=== PATIENT | female | born 1950 | race Hispanic/Latino ===

== ENCOUNTER → 2017-12-03 | Day surgery (SDC) | payer MEDICARE, OTHER ==
[2017-12-02 10:34] LABS: BASOPHILS % 0.5 % (0.0-1.0); EOSINOPHILS # (AUTO) 0.2 (0.0-0.4); EOSINOPHILS % 2.3 % (0.0-6.0); HEMATOCRIT 41.1 % (34.2-44.1); HEMOGLOBIN 13.4 g/dL (12.0-16.0); LYMPHOCYTES # (AUTO) 1.6 (1.0-3.2); LYMPHOCYTES % 17.9 % (18.0-39.1); MEAN CORPUSCULAR HEMOGLOBIN 30.4 pg (28-32); MEAN CORPUSCULAR HGB CONC 32.6 g/dL (31-35); MEAN CORPUSCULAR VOLUME 93.2 fL (81-99); MONOCYTES # (AUTO) 0.6 (0.2-0.8); MONOCYTES % 6.2 % (4.4-11.3); NEUTROPHILS # (AUTO) 6.4 (2.1-6.9); NEUTROPHILS % 72.5 % (38.7-80.0); PLATELET COUNT 226 x10e3/uL (140-360); RED BLOOD COUNT 4.41 x10e6/uL (3.6-5.1); RED CELL DISTRIBUTION WIDTH 13.7 % (11.7-14.4)
[~2017-12-03] MED LIST: ASPIR-LOW81 MG PO; FENTANYL CITRATE/PF 100MCG/2 ML INJ ONE; FUROSEMIDE40 MG PO; HYOSCYAMINE SULFATE 0.5 MG/ML AMP ONE; LOSARTAN POTAS100 MG PO; METOPROLOL SUCC50 MG PO; MIDAZOLAM HCL 2 MG/2 ML VIAL ONE; OMEPRAZOLE20 M1 PO; POTASSIUM CHLO20 ME1 PO; PROPOFOL IV EMULSION 10 MG/ML 50 ML VIAL ONE
[2017-12-03 12:46] VITALS: BP 120/67
== END | disposition home or self-care (01) ==
LOC: OR 10:50
PROVIDERS: ATTEND Internal Medicine Gastroenterology
DX: Z12.11 Encounter for screening for malignant neoplasm of colon (principal); D12.0 Benign neoplasm of cecum; D12.3 Benign neoplasm of transverse colon; K29.70 Gastritis, unspecified, without bleeding; K21.9 Gastro-esophageal reflux disease without esophagitis; K57.30 Diverticulosis of large intestine without perforation or abscess without bleeding; K44.9 Diaphragmatic hernia without obstruction or gangrene; K64.8 Other hemorrhoids; J45.909 Unspecified asthma, uncomplicated; I10 Essential (primary) hypertension; R07.9 Chest pain, unspecified; Z91.041 Radiographic dye allergy status; Z01.812 Encounter for preprocedural laboratory examination; Z79.82 Long term (current) use of aspirin; Z68.43 Body mass index [BMI] 50.0-59.9, adult; Z80.0 Family history of malignant neoplasm of digestive organs
CPT/HCPCS: 36415; 43239; 45384; 45385; 85025; 88305; 88312; J1980; J2250

== ENCOUNTER → 2018-06-03 | Day surgery (SDC) | payer MEDICARE, OTHER ==
[2018-05-28 11:18] LABS: BASOPHILS # (AUTO) 0.1 (0.0-0.1); BASOPHILS % 0.6 % (0.0-1.0); EOSINOPHILS # (AUTO) 0.2 (0.0-0.4); HEMOGLOBIN 13.3 g/dL (12.0-16.0); LYMPHOCYTES # (AUTO) 1.4 (1.0-3.2); LYMPHOCYTES % 18.1 % (18.0-39.1); MEAN CORPUSCULAR HEMOGLOBIN 29.8 pg (28-32); MEAN CORPUSCULAR HGB CONC 32.4 g/dL (31-35); MEAN CORPUSCULAR VOLUME 91.7 fL (81-99); MONOCYTES # (AUTO) 0.5 (0.2-0.8); MONOCYTES % 6.9 % (4.4-11.3); NEUTROPHILS # (AUTO) 5.6 (2.1-6.9); PLATELET COUNT 216 x10e3/uL (140-360); RED BLOOD COUNT 4.47 x10e6/uL (3.6-5.1); RED CELL DISTRIBUTION WIDTH 13.1 % (11.7-14.4)
--- NOTE | 2018-05-28 12:05 | Diagnostic Imaging Report ---
EXAM: CHEST 2 VIEWS DATE: 05/28/2018 10:50 AM INDICATION: Preop pelvic surgery COMPARISON: None FINDINGS: Lines and tubes: None Heart size normal. No focal pulmonary opacity, pleural effusion or pneumothorax. Upper abdomen unremarkable. No acute bony abnormality. There are degenerative changes in the thoracic spine. IMPRESSION: No evidence for acute disease. Signed by: Dr. Jeremy Bojorquez M.D. on 05/28/2018 12:02 PM
[~2018-06-03] MED LIST changes: +ALBUTEROL SULFATE HFA 8GM INHALATION AEROSOL INH ONE; +DEXAMETHASONE SOD PHOS INJ 4 MG/ML VIAL ONE; +DEXILANT60 MG; +EPHEDRINE SULFATE INJ 50 MG/10 ML SYR ONE; +GLYCOPYRROLATE INJ 1MG/ 5 ML SYR ONE; +HYDROMORPHONE 2MG/ML 2 MG/ML ML ONE; -HYOSCYAMINE SULFATE 0.5 MG/ML AMP ONE; +KETOROLAC TROMETHAMINE 30 MG/ML VIAL ONE; +LIDOCAINE HCL 2% LOCAL INJ 5 ML SDV VIAL INJ ONE; +NEOSTIGMINE 5 MG/5ML SYR ONE; +ONDANSETRON HCL INJ 2MG/ML 2ML 2 MG/ML VIAL ONE; +PROPOFOL IV EMULSION 10 MG/ML 20 ML VIAL ONE; -PROPOFOL IV EMULSION 10 MG/ML 50 ML VIAL ONE; +ROCURONIUM BROMIDE 10 MG/ML 5ML VIAL ONE; +SEVOFLURANE INHAL SOLN 250 ML PEN BTL ONE; +SILVER NITRATE SWABS ONE; +SUCCINYLCHOLINE 200 MG/10 ML SYR ONE
--- OUTSIDE RECORDS SUMMARY | 2018-06-03 06:47 | XMS REPORT | Summary of Care ---
Author Author [facility] Organization [facility] Address Unknown Phone Unavailable Encounter NICOLETTE Wagner(MECHE) [id number] Date(s): 07/08/15 - 07/11/15 [facility] [address] [place] [address]- [phone] Discharge Disposition: Home Attending Physician: Hardy Pham DO Admitting Physician: Hardy Pham DO Vital Signs 1 2 3 Most recent to oldest [Reference Range]: 152.4 cm (07/09/15 5:10 AM) 152.4 cm (07/08/15 9:10 PM) Height 98.2 DegF (07/11/15 11:00 AM) 98.2 DegF (07/11/15 8:00 AM) 98.9 DegF (07/11/15 12:00 AM) Temperature Oral [96.4-99.1 DegF] 136/104 mmHg (07/11/15 11:00 AM) 124/68 mmHg (07/11/15 8:00 AM) 133/64 mmHg (07/11/15 12:00 AM) Blood Pressure [90-140/60-90 mmHg] 18 BRMIN (07/11/15 11:00 AM) 18 BRMIN (07/11/15 8:00 AM) 17 BRMIN (07/11/15 12:00 AM) Respiratory Rate [14-20 BRMIN] 68 bpm (07/11/15 11:00 AM) 67 bpm (07/11/15 8:00 AM) 70 bpm (07/11/15 12:00 AM) Peripheral Pulse Rate [60-100 bpm] 136.96 kg (07/09/15 5:10 AM) 135 kg (07/08/15 9:10 PM) Weight 58.97 m2 (07/09/15 5:10 AM) 58.13 m2 (07/08/15 9:10 PM) Body Mass Index Problem List Condition Effective Dates Status Health Status Informant HTN Resolved (hypertension)(Confi rmed) Umbilical hernia, Resolved incarcerated(Confirm ed) Allergies, Adverse Reactions, Alerts Substance Reaction Severity Status iodinated radiocontrast Active dyes Medications acetaminophen 650 mg, 2 tab, Route: PO, Drug form: TAB, Q4H, Dosing Weight 135, kg, PRN Pain 1 -3/Temp > 100.4 F, Start date: 07/09/15 2:55:00 CDT, Duration: 30 day, Stop date: 08/08/15 2:54:00 CDT Notes: Do not exceed 4 gm/day. (Same as: Tylenol) Start Date: 07/09/15 Stop Date: 07/11/15 Status: Discontinued acetaminophen-codeine 300 mg-15 mg oral tablet 1 tab, PO, Q4H, PRN Pain, X 3 day, # 18 tab, 0 Refill(s) Start Date: 07/11/15 Stop Date: 07/14/15 Status: Ordered Bentyl 20 mg, 1 tab, Route: PO, Drug form: TAB, QID, Dosing Weight 135, kg, Start date: 07/09/15 9:00:00 CDT, Duration: 30 day, Stop date: 08/07/15 21:00:00 CDT Notes: (Same as: Bentyl) Start Date: 07/09/15 Stop Date: 07/09/15 Status: Discontinued bifidobacterium-lactobacillus oral capsule 1 cap, PO, BID, # 10 cap, 0 Refill(s) Start Date: 07/11/15 Stop Date: 07/16/15 Status: Ordered calcium gluconate 2 gm, 100 mL, Route: IVPB, Drug form: INJ, PRN, Dosing Weight 136.96, kg, PRN Ab normal Lab Result, For NON-ICU Patients Only., Start date: 07/10/15 10:15:00 CDT , Duration: 30 day, Stop date: 08/09/15 10:14:00 CDT Notes: WASTE: F/P - Sink; E - Municipal Trash Bin Start Date: 07/10/15 Stop Date: 07/11/15 Status: Discontinued calcium gluconate + Sodium Chloride 0.9% IV 150 mL 3 gm, 30 mL, Route: IVPB, PRN, Dosing Weight 136.96, kg, PRN Abnormal Lab Result , For NON-ICU Patients Only., Start date: 07/10/15 10:15:00 CDT, Duration: 30 da y, Stop date: 08/09/15 10:14:00 CDT Notes: WASTE: F/P - Sink; E - Municipal Trash Bin Start Date: 07/10/15 Stop Date: 07/11/15 Status: Discontinued Colace 100 mg oral capsule 100 mg, 1 cap, Route: PO, Drug form: CAP, BID, Dosing Weight 135, kg, PRN Consti pation, Start date: 07/09/15 2:55:00 CDT, Duration: 30 day, Stop date: 08/08/15 2:54:00 CDT Notes: (Same as: Colace) (Do Not Crush) Start Date: 07/09/15 Stop Date: 07/11/15 Status: Discontinued DuoNeb inhalation solution 3 ml, Route: NEB, Drug Form: SOLN, Dosing Weight 136.96, kg, ONCE, PRN Respirato ry Protocol, Start date: 07/11/15 12:22:00 CDT, Stop date: 08/10/15 12:21:00 CDT Notes: (Same as: Duoneb) Start Date: 07/11/15 Stop Date: 07/11/15 Status: Completed Flagyl 500 mg, 100 mL, Route: IVPB, Drug form: INJ, ABXQ8H, Dosing Weight 135, kg, Star t date: 07/09/15 3:00:00 CDT, Duration: 30 day, Stop date: 08/07/15 19:00:00 CDT Notes: (Same as: Flagyl) Avoid alcohol. Start Date: 07/09/15 Stop Date: 07/11/15 Status: Discontinued furosemide 40 mg, PO, Daily, 0 Refill(s) Start Date: 07/10/15 Status: Ordered furosemide 40 mg, 1 tab, Route: PO, Drug form: TAB, Daily, Dosing Weight 136.96, kg, Start date: 07/11/15 14:00:00 CDT, Duration: 30 day, Stop date: 08/10/15 9:00:00 CDT Notes: (Same as: Lasix) May cause GI upset. Give with food or milk. Start Date: 07/11/15 Stop Date: 07/11/15 Status: Discontinued Gas-X Ultra Softgels 160 mg, 2 tab, Route: PO, Drug form: CHEWTAB, Q4H, Dosing Weight 135, kg, PRN Ga s, Start date: 07/09/15 2:55:00 CDT, Duration: 30 day, Stop date: 08/08/15 2:54: 00 CDT Notes: (Same as: Mylicon) Start Date: 07/09/15 Stop Date: 07/11/15 Status: Discontinued GI cocktail 30 ml, Route: PO, Drug Form: SUSP, Dosing Weight 135, kg, Q4H, PRN Indigestion, NOW, Start date: 07/09/15 2:55:00 CDT, Duration: 30 day, Stop date: 08/08/15 2:5 4:00 CDT, DYSPEPSIA Notes: G.I. Cocktail=antacid with simethicone 22.5 mL - lidocaine viscous 7.5 mL Start Date: 07/09/15 Stop Date: 07/11/15 Status: Discontinued heparin 7,500 unit, 1.5 mL, Route: SUB-Q, Drug form: INJ, Q8H-06, Dosing Weight 135, kg, Consider for obese patients, Start date: 07/09/15 6:00:00 CDT, Duration: 30 day, Stop date: 08/07/15 22:00:00 CDT Notes: porcine heparin Start Date: 07/09/15 Stop Date: 07/11/15 Status: Discontinued hydrALAZINE 10 mg, 0.5 mL, Route: IVP, Drug form: INJ, Q6H, Dosing Weight 135, kg, PRN [place] wander BP, Start date: 07/09/15 2:55:00 CDT, Duration: 30 day, Stop date: 08/08/15 2:54:00 CDT, SBP>/=160 OR DBP>/=90 Notes: (Same as: Apresoline)Push over 5 minutes Start Date: 07/09/15 Stop Date: 07/11/15 Status: Discontinued Levaquin 500 mg, 100 mL, Route: IVPB, Drug form: SOLN, [id number], Dosing Weight 136.96, kg, Priority: STAT, Start date: 07/10/15 4:16:00 CDT, Duration: 30 day, Stop date: 08/08/15 4:16:00 CDT Notes: (Same as:Levaquin) Start Date: 07/10/15 Stop Date: 07/11/15 Status: Discontinued Levaquin 750 mg oral tablet 750 mg=1 tab, PO, Daily, X 5 day, # 5 tab, 0 Refill(s) Start Date: 07/11/15 Stop Date: 07/16/15 Status: Ordered losartan 100 mg, PO, Daily, 0 Refill(s) Start Date: 07/10/15 Status: Ordered losartan 100 mg, 2 tab, Route: PO, Drug form: TAB, Daily, Dosing Weight 136.96, kg, Start date: 07/11/15 14:00:00 CDT, Duration: 30 day, Stop date: 08/10/15 9:00:00 CDT Notes: (Same as: Cozaar) Start Date: 07/11/15 Stop Date: 07/11/15 Status: Discontinued magnesium oxide 800 mg, 2 tab, Route: PO, Drug form: TAB, PRN, Dosing Weight 136.96, kg, PRN Abn ormal Lab Result, For NON-ICU Patients Only., Start date: 07/10/15 10:15:00 CDT, Duration: 30 day, Stop date: 08/09/15 10:14:00 CDT Notes: (Same as: Mag-Ox 400)Magnesium oxide [id number] elemental magnesiumDose= ____mg magnesium oxide (___mg elemental magnesium) Start Date: 07/10/15 Stop Date: 07/11/15 Status: Discontinued magnesium sulfate 1 gm, 100 mL, Route: IVPB, Drug form: INJ, PRN, Dosing Weight 136.96, kg, PRN Ab normal Lab Result, For NON-ICU Patients Only., Start date: 07/10/15 10:15:00 CDT , Duration: 30 day, Stop date: 08/09/15 10:14:00 CDT Notes: WASTE: F/P - Sink; E - Municipal Trash Bin Start Date: 07/10/15 Stop Date: 07/11/15 Status: Discontinued magnesium sulfate 2 gm, 50 mL, Route: IVPB, Drug form: INJ, PRN, Dosing Weight 136.96, kg, PRN Abn ormal Lab Result, For NON-ICU Patients Only., Start date: 07/10/15 10:15:00 CDT, Duration: 30 day, Stop date: 08/09/15 10:14:00 CDT Notes: WASTE: F/P - Sink; E - Municipal Trash Bin Start Date: 07/10/15 Stop Date: 07/11/15 Status: Discontinued metoprolol extended release 50 mg, PO, Daily, 0 Refill(s) Start Date: 07/10/15 Status: Ordered metoprolol extended release 50 mg, 1 tab, Route: PO, Drug form: ERTAB, Daily, Start date: 07/11/15 16:00:00 CDT, Duration: 30 day, Stop date: 08/10/15 9:00:00 CDT Notes: (Same as: Toprol XL) May split tab, but do not crush. Start Date: 07/11/15 Stop Date: 07/11/15 Status: Canceled morphine Sulfate 2 mg, 1 mL, Route: IVP, Drug form: INJ, Q4H, Dosing Weight 135, kg, PRN Pain Sco re 4-6, Start date: 07/09/15 2:55:00 CDT, Duration: 3 day, Stop date: 07/12/15 2 :54:00 CDT Notes: (Same as:MORPhine Sulfate) Start Date: 07/09/15 Stop Date: 07/11/15 Status: Discontinued Omnipaque 240mg/ml ORAL Solution 50 mL, Route: PO, Drug Form: SOLN, Dosing Weight 135, kg, ONCE, Start date: 06/23 08/07 21:50:00 CDT, Stop date: 07/08/15 21:50:00 CDT Notes: (Same as:Omnipaque 240)12,000mg/50mlWASTE: F/P - Black; E - Municipal Tra sh Bin Start Date: 07/08/15 Stop Date: 07/09/15 Status: Completed ondansetron 4 mg, 2 mL, Route: IVP, Drug form: INJ, Q4H, Dosing Weight 135, kg, PRN Nausea & Vomiting, Start date: 07/09/15 2:55:00 CDT, Duration: 30 day, Stop date: 2:54:00 CDT Notes: (Same as: Zofran) MEDICATION WASTE Product Size: 4 mgProduct Was wander: ___ mg Start Date: 07/09/15 Stop Date: 07/11/15 Status: Discontinued potassium chloride 10 mEq, 100 mL, Route: IVPB, Drug form: INJ, Q1H, Dosing Weight 136.96, kg, Tota l Dose=40 mEq; Peripheral Line, Start date: 07/10/15 8:00:00 CDT, Duration: 4 do ses or times, Stop date: 07/10/15 11:00:00 CDT Notes: Infuse at a rate of 10 mEq/hr.(Same as: KCL) Start Date: 07/10/15 Stop Date: 07/10/15 Status: Completed potassium chloride 10 mEq, 100 mL, Route: IVPB, Drug form: INJ, PRN, Dosing Weight 136.96, kg, PRN Abnormal Lab Result, For NON-ICU Patients Only, Start date: 07/10/15 10:15:00 CD T, Duration: 30 day, Stop date: 08/09/15 10:14:00 CDT Notes: Infuse at a rate of 10 mEq/hr.(Same as: KCL) Start Date: 07/10/15 Stop Date: 07/11/15 Status: Discontinued potassium chloride 20 mEq, 15 mL, Route: NJ, Drug form: LIQ, PRN, Dosing Weight 136.96, kg, PRN Abn ormal Lab Result, For NON-ICU Patients Only, Start date: 07/10/15 10:15:00 CDT, Duration: 30 day, Stop date: 08/09/15 10:14:00 CDT Notes: (Same as: Potassium Chloride) Start Date: 07/10/15 Stop Date: 07/11/15 Status: Discontinued potassium chloride 20 mEq, 1 tab, Route: PO, Drug form: ERTAB, PRN, Dosing Weight 136.96, kg, PRN A bnormal Lab Result, For NON-ICU Patients Only, Start date: 07/10/15 10:15:00 CDT , Duration: 30 day, Stop date: 08/09/15 10:14:00 CDT Notes: (Same as: K-Dur 20)"Do Not Crush" With food and full glass of water Start Date: 07/10/15 Stop Date: 07/11/15 Status: Discontinued potassium phosphate + Sodium Chloride 0.9% IV 250 mL 30 mmol, 10 mL, Route: IVPB, ONCE, Dosing Weight 136.96, kg, Start date: 6 7:41:00 CDT, Stop date: 07/10/15 7:41:00 CDT Notes: (Same as: K Phosphate.) 1 mMol phoshate has 1.47 mEq potassium Infuse o qi 4 hours Start Date: 07/10/15 Stop Date: 07/10/15 Status: Completed potassium phosphate + Sodium Chloride 0.9% IV 250 mL 30 mmol, 10 mL, Route: IVPB, PRN, Dosing Weight 136.96, kg, PRN Abnormal Lab Res ult, For NON-ICU Patients Only., Start date: 07/10/15 10:15:00 CDT, Duration: 30 day, Stop date: 08/09/15 10:14:00 CDT Notes: (Same as: K Phosphate.) 1 mMol phoshate has 1.47 mEq potassium Infuse o qi 4 hours Start Date: 07/10/15 Stop Date: 07/11/15 Status: Discontinued potassium phosphate + Sodium Chloride 0.9% IV 250 mL 15 mmol, 5 mL, Route: IVPB, PRN, Dosing Weight 136.96, kg, PRN Abnormal Lab Resu lt, For NON-ICU Patients Only., Start date: 07/10/15 10:15:00 CDT, Duration: 30 day, Stop date: 08/09/15 10:14:00 CDT Notes: (Same as: K Phosphate.) 1 mMol phoshate has 1.47 mEq potassium Infuse o qi 4 hours Start Date: 07/10/15 Stop Date: 07/11/15 Status: Discontinued potassium phosphate-sodium phosphate 250 mg-278 mg-164 mg oral powder 2 pkt, Route: PO, Drug Form: PDR/REC, Dosing Weight 136.96, kg, PRN, PRN Abnorma l Lab Result, For NON-ICU Patients Only, Start date: 07/10/15 10:15:00 CDT, Dura tion: 30 day, Stop date: 08/09/15 10:14:00 CDT Notes: (Same as: Neutra-Phos) Each 1.25 gm pkt has 250mg phosphorous. Mix w/2.5 oz water and stir. Start Date: 07/10/15 Stop Date: 07/11/15 Status: Discontinued Protonix 40 mg, Route: IVP, Drug form: INJ, BID, Dosing Weight 135, kg, Patient is NPO, P riority: STAT, Start date: 07/09/15 2:55:00 CDT, Duration: 30 day, Stop date: 17:00:00 CDT Notes: For IV push reconstitute with 10 ml 0.9% sodium chloride and push over 2 minutes. (Same as: Protonix) Start Date: 07/09/15 Stop Date: 07/11/15 Status: Discontinued Saline Flush 0.9% 10 mL, Route: IVP, Drug Form: INJ, Dosing Weight 135, kg, PRN, PRN Line Flush, S tart date: 07/08/15 21:50:00 CDT, Duration: 30 day, Stop date: 08/07/15 21:49:00 CDT Notes: (Same as: BD Posiflush) Start Date: 07/08/15 Stop Date: 07/11/15 Status: Discontinued Sodium Chloride 0.9% IV 1,000 mL 1,000 mL, Rate: 125 ml/hr, Infuse over: 8 hr, Route: IV, Dosing Weight 135 kg, T otal Volume: 1,000, Start date: 07/09/15 2:55:00 CDT, Duration: 30 day, Stop rocio e: 08/08/15 2:54:00 CDT Start Date: 07/09/15 Stop Date: 07/11/15 Status: Discontinued sodium phosphate + Sodium Chloride 0.9% IV 250 mL 30 mmol, 10 mL, Route: IVPB, PRN, Dosing Weight 136.96, kg, PRN Abnormal Lab Res ult, For NON-ICU Patients Only., Start date: 07/10/15 10:15:00 CDT, Duration: 30 day, Stop date: 08/09/15 10:14:00 CDT Start Date: 07/10/15 Stop Date: 07/11/15 Status: Discontinued sodium phosphate + Sodium Chloride 0.9% IV 250 mL 15 mmol, 5 mL, Route: IVPB, PRN, Dosing Weight 136.96, kg, PRN Abnormal Lab Resu lt, For NON-ICU Patients Only., Start date: 07/10/15 10:15:00 CDT, Duration: 30 day, Stop date: 08/09/15 10:14:00 CDT Start Date: 07/10/15 Stop Date: 07/11/15 Status: Discontinued tramadol 50 mg oral tablet 50 mg, 1 tab, Route: PO, Drug form: TAB, Q6H, Dosing Weight 135, kg, PRN Pain Sc ore 4-6, Start date: 07/09/15 2:55:00 CDT, Duration: 30 day, Stop date: 08/08/15 2:54:00 CDT Notes: Not to exceed 400mg/day. (Same As: Ultram) Start Date: 07/09/15 Stop Date: 07/11/15 Status: Discontinued Zosyn 3.375 gm, Route: IVPB, Drug form: PDR/INJ, ONCE, Dosing Weight 135, kg, Priority : STAT, Start date: 07/09/15 2:41:00 CDT, Stop date: 07/09/15 2:41:00 CDT Start Date: 07/09/15 Stop Date: 07/09/15 Status: Completed Zosyn 4.5 gm, Route: IV, Drug form: INJ, ABXQ6H, Dosing Weight 136.96, kg, Start date: 07/09/15 16:00:00 CDT, Duration: 30 day, Stop date: 08/08/15 10:00:00 CDT, Subs titute Allowed No, > 40 kg; Pediatric Dosing Start Date: 07/09/15 Stop Date: 07/09/15 Status: Deleted Zosyn + Sodium Chloride 0.9% IV 100 mL 3.375 gm, Route: IVPB, ABXQ8H, Start date: 07/09/15 20:00:00 CDT, Duration: 30 d ay, Stop date: 08/08/15 9:00:00 CDT Notes: (Same as: Zosyn)Dosing based on Piperacillin component MEDICATION [place] DEEPAK Product Size: 3375 mgProduct Wasted: ___ mg Start Date: 07/09/15 Stop Date: 07/11/15 Status: Discontinued Zosyn + Sodium Chloride 0.9% IV 100 mL 3.375 gm, Route: IVPB, ABXQ8H, Dosing Weight 135, kg, Start date: 07/09/15 5:00: 00 CDT, Duration: 30 day, Stop date: 08/07/15 21:00:00 CDT Notes: (Same as: Zosyn)Dosing based on Piperacillin component MEDICATION [place] DEEPAK Product Size: 3375 mgProduct Wasted: ___ mg Start Date: 07/09/15 Stop Date: 07/09/15 Status: Discontinued Results ELECTROLYTES 1 2 3 Most recent to oldest [Reference Range]: 142 mEq/L (07/11/15 6:11 AM) 139 mEq/L (07/10/15 3:47 AM) 139 mEq/L (07/09/15 5:21 AM) Sodium Lvl [135-145 mEq/L] 3.5 mEq/L (07/11/15 6:11 AM) 2.8 mEq/L 1 *CRIT* (07/10/15 3:47 AM) 3.8 mEq/L (07/09/15 5:21 AM) Potassium Lvl [3.5-5.1 mEq/L] 110 mEq/L *HI* (07/11/15 6:11 AM) 103 mEq/L (07/10/15 3:47 AM) 102 mEq/L (07/09/15 5:21 AM) Chloride Lvl [95-109 mEq/L] 25 mEq/L (07/11/15 6:11 AM) 28 mEq/L (07/10/15 3:47 AM) 25 mEq/L (07/09/15 5:21 AM) CO2 [24-32 mEq/L] 10.5 mEq/L (07/11/15 6:11 AM) 10.8 mEq/L (07/10/15 3:47 AM) 15.8 mEq/L (07/09/15 5:21 AM) AGAP [10.0-20.0 mEq/L] 1Result Comment: Critical Result(s) called to ECTOR RAND at 07/10/2015 06:57 by ANASTACIO. Read back OK. CHEM PANEL 1 2 3 Most recent to oldest [Reference Range]: 0.72 mg/dL (07/11/15 6:11 AM) 0.88 mg/dL (07/10/15 3:47 AM) 1.00 mg/dL (07/09/15 5:21 AM) Creatinine Lvl [0.50-1.40 mg/dL] 88 mL/min/1.73m2 1 *NA* (07/11/15 6:11 AM) 69 mL/min/1.73m2 2 *NA* (07/10/15 3:47 AM) 59 mL/min/1.73m2 3 *NA* (07/09/15 5:21 AM) eGFR 9 mg/dL (07/11/15 6:11 AM) 12 mg/dL (07/10/15 3:47 AM) 18 mg/dL (07/09/15 5:21 AM) BUN [7-22 mg/dL] 18 (07/09/15 5:21 AM) 17 (07/08/15 11:29 PM) B/C Ratio [6-25] 105 mg/dL *HI* (07/11/15 6:11 AM) 121 mg/dL *HI* (07/10/15 3:47 AM) 116 mg/dL *HI* (07/09/15 5:21 AM) Glucose Lvl [70-99 mg/dL] 7.8 g/dL (07/09/15 5:21 AM) 8.0 g/dL (07/08/15 11:29 PM) Total Protein [6.4-8.4 g/dL] 3.0 g/dL *LOW* (07/09/15 5:21 AM) 3.3 g/dL *LOW* (07/08/15 11:29 PM) Albumin Lvl [3.5-5.0 g/dL] 4.8 g/dL *HI* (07/09/15 5:21 AM) 4.7 g/dL *HI* (07/08/15 11:29 PM) Globulin [2.0-4.0 g/dL] 0.6 *LOW* (07/09/15 5:21 AM) 0.7 (07/08/15 11:29 PM) A/G Ratio [0.7-1.6] 7.9 mg/dL *LOW* (07/11/15 6:11 AM) 8.1 mg/dL *LOW* (07/10/15 3:47 AM) 8.3 mg/dL *LOW* (07/09/15 5:21 AM) Calcium Lvl [8.5-10.5 mg/dL] 1.7 mg/dL *LOW* (07/11/15 6:11 AM) 2.5 mg/dL (07/10/15 3:47 AM) 2.7 mg/dL (07/09/15 5:21 AM) Phosphorus [2.5-4.5 mg/dL] 1.9 mg/dL (07/11/15 6:11 AM) 2.0 mg/dL (07/10/15 3:47 AM) 1.9 mg/dL (07/09/15 5:21 AM) Magnesium Lvl [1.8-2.4 mg/dL] 21 unit/L (07/09/15 5:21 AM) 23 unit/L (07/08/15 11:29 PM) ALT [0-65 unit/L] 17 unit/L (07/09/15 5:21 AM) 13 unit/L (07/08/15 11:29 PM) AST [0-37 unit/L] 101 unit/L (07/09/15 5:21 AM) 112 unit/L (07/08/15 11:29 PM) Alk Phos [39-136 unit/L] 0.9 mg/dL (07/09/15 5:21 AM) 0.9 mg/dL (07/08/15 11:29 PM) Bili Total [0.2-1.3 mg/dL] 66 unit/L *LOW* (07/08/15 11:29 PM) Lipase Lvl [73-393 unit/L] 27.52 ng/mL 4 *CRIT* (07/10/15 7:01 AM) Procalcitonin Lvl [0.00-0.10 ng/mL] 1Result Comment: The eGFR is calculated using the CKD-EPI formula. In most young, healthy individuals the eGFR will be >90 mL/min/1.73m2. The eGFR declines with age. An eGFR of 60-89 may be normal in some populations, particularly the elderly, for whom the CKD-EPI formula has not been extensively validated. Use of the eGFR is not recommended in the following populations: Individuals with unstable creatinine concentrations, including patients and those with serious co-morbid conditions. Patients with extremes in muscle mass or diet. The data above are obtained from the National Kid[employer] Disease Education Program ( NK[employer]) which additionally recommends that when the eGFR is used in patients with extremes of body mass index for purposes of drug dosing, the eGFR should be mul tiplied by the estimated BMI. 2Result Comment: The eGFR is calculated using the CKD-EPI formula. In most young, healthy individuals the eGFR will be >90 mL/min/1.73m2. The eGFR declines with age. An eGFR of 60-89 may be normal in some populations, particularly the elderly, for whom the CKD-EPI formula has not been extensively validated. Use of the eGFR is not recommended in the following populations: Individuals with unstable creatinine concentrations, including patients and those with serious co-morbid conditions. Patients with extremes in muscle mass or diet. The data above are obtained from the National Kid[employer] Disease Education Program ( NKDEP) which additionally recommends that when the eGFR is used in patients with extremes of body mass index for purposes of drug dosing, the eGFR should be mul tiplied by the estimated BMI. 3Result Comment: The eGFR is calculated using the CKD-EPI formula. In most young, healthy individuals the eGFR will be >90 mL/min/1.73m2. The eGFR declines with age. An eGFR of 60-89 may be normal in some populations, particularly the elderly, for whom the CKD-EPI formula has not been extensively validated. Use of the eGFR is not recommended in the following populations: Individuals with unstable creatinine concentrations, including patients and those with serious co-morbid conditions. Patients with extremes in muscle mass or diet. The data above are obtained from the National Kidney Disease Education Program ( NKDEP) which additionally recommends that when the eGFR is used in patients with extremes of body mass index for purposes of drug dosing, the eGFR should be mul tiplied by the estimated BMI. 4Result Comment: Critical Result(s) called to OLEGARIO OJEDA at 07/10/2015 09:30 by ANASTACIO. Read back OK. CARDIAC ENZYMES 1 2 3 Most recent to oldest [Reference Range]: 47 unit/L (07/08/15 11:29 PM) Total CK [12-191 unit/L] <0.5 ng/mL (07/08/15 11:29 PM) CK MB [0.5-3.6 ng/mL] <1.1 (07/08/15 11:29 PM) CK MB Index [0.0-2.5] <0.02 ng/mL (07/08/15 11:29 PM) Troponin-I [0.00-0.40 ng/mL] ENDOCRINOLOGY 1 2 3 Most recent to oldest [Reference Range]: Negative *NA* (07/08/15 11:29 PM) S Preg [Negative] URINE AND STOOL 1 2 3 Most recent to oldest [Reference Range]: Slight Cloudy (07/09/15 2:12 AM) UA Turbidity [Clear] Yellow *NA* (07/09/15 2:12 AM) UA Color [Yellow] 5.5 (07/09/15 2:12 AM) UA pH [5.0-8.0] 1.010 (07/09/15 2:12 AM) UA Spec Grav [<=1.030] Negative (07/09/15 2:12 AM) UA Glucose [Negative] Small *ABN* (07/09/15 2:12 AM) UA Blood [Negative] Negative *NA* (07/09/15 2:12 AM) UA Ketones [Negative] Negative (07/09/15 2:12 AM) UA Protein [Negative] 1.0 EU/dL (07/09/15 2:12 AM) UA Urobilinogen [0.1-1.0 EU/dL] Negative *NA* (07/09/15 2:12 AM) UA Bili [Negative] Small *ABN* (07/09/15 2:12 AM) UA Leuk Est [Negative] Positive *ABN* (07/09/15 2:12 AM) UA Nitrite [Negative] 6-10 /HPF *ABN* (07/09/15 2:12 AM) UA WBC [None Seen /HPF] 3-5 /HPF *ABN* (07/09/15 2:12 AM) UA RBC [0-2 /HPF] Moderate /HPF (07/09/15 2:12 AM) UA Bacteria [None Seen /HPF] Few /LPF (07/09/15 2:12 AM) UA Sq Epi [Few /LPF] Few /LPF (07/09/15 2:12 AM) UA Mucus [None Seen /LPF] Performed (07/09/15 2:12 AM) Micro? HEMATOLOGY 1 2 3 Most recent to oldest [Reference Range]: 11.1 K/CMM *HI* (07/11/15 6:11 AM) 14.9 K/CMM *HI* (07/10/15 3:47 AM) 22.0 K/CMM *HI* (07/09/15 5:21 AM) WBC [3.7-10.4 K/CMM] 3.68 M/CMM *LOW* (07/11/15 6:11 AM) 3.84 M/CMM *LOW* (07/10/15 3:47 AM) 4.09 M/CMM *LOW* (07/09/15 5:21 AM) RBC [4.20-5.40 M/CMM] 10.6 g/dL *LOW* (07/11/15 6:11 AM) 11.2 g/dL *LOW* (07/10/15 3:47 AM) 12.1 g/dL (07/09/15 5:21 AM) Hgb [12.0-16.0 g/dL] 32.9 % *LOW* (07/11/15 6:11 AM) 34.2 % *LOW* (07/10/15 3:47 AM) 36.1 % (07/09/15 5:21 AM) Hct [36.0-48.0 %] 89.2 fL (07/11/15 6:11 AM) 88.9 fL (07/10/15 3:47 AM) 88.3 fL (07/09/15 5:21 AM) MCV [80.0-98.0 fL] 28.9 pg (07/11/15 6:11 AM) 29.2 pg (07/10/15 3:47 AM) 29.5 pg (07/09/15 5:21 AM) MCH [27.0-31.0 pg] 32.4 g/dL (07/11/15 6:11 AM) 32.8 g/dL (07/10/15 3:47 AM) 33.4 g/dL (07/09/15 5:21 AM) MCHC [32.0-36.0 g/dL] 13.7 % (07/11/15 6:11 AM) 13.8 % (07/10/15 3:47 AM) 14.2 % (07/09/15 5:21 AM) RDW [11.5-14.5 %] 147 K/CMM (07/11/15 6:11 AM) 154 K/CMM (07/10/15 3:47 AM) 176 K/CMM (07/09/15 5:21 AM) Platelet [133-450 K/CMM] 10.9 fL *HI* (07/11/15 6:11 AM) 11.3 fL *HI* (07/10/15 3:47 AM) 10.8 fL *HI* (07/09/15 5:21 AM) MPV [7.4-10.4 fL] 75.6 % *HI* (07/11/15 6:11 AM) 86.0 % *HI* (07/10/15 3:47 AM) 92.7 % *HI* (07/09/15 5:21 AM) Segs [45.0-75.0 %] 10.8 % *LOW* (07/11/15 6:11 AM) 4.2 % *LOW* (07/10/15 3:47 AM) 3.0 % *LOW* (07/09/15 5:21 AM) Lymphocytes [20.0-40.0 %] 12.0 % (07/11/15 6:11 AM) 9.4 % (07/10/15 3:47 AM) 3.6 % (07/09/15 5:21 AM) Monocytes [2.0-12.0 %] 1.1 % (07/11/15 6:11 AM) 0.1 % (07/10/15 3:47 AM) 0.3 % (07/09/15 5:21 AM) Eosinophils [0.0-4.0 %] 0.5 % (07/11/15 6:11 AM) 0.3 % (07/10/15 3:47 AM) 0.4 % (07/09/15 5:21 AM) Basophils [0.0-1.0 %] 8.4 K/CMM *HI* (07/11/15 6:11 AM) 12.8 K/CMM *HI* (07/10/15 3:47 AM) 20.4 K/CMM *HI* (07/09/15 5:21 AM) Segs-Bands # [1.5-8.1 K/CMM] 1.2 K/CMM (07/11/15 6:11 AM) 0.6 K/CMM *LOW* (07/10/15 3:47 AM) 0.7 K/CMM *LOW* (07/09/15 5:21 AM) Lymphocytes # [1.0-5.5 K/CMM] 1.3 K/CMM *HI* (07/11/15 6:11 AM) 1.4 K/CMM *HI* (07/10/15 3:47 AM) 0.8 K/CMM (07/09/15 5:21 AM) Monocytes # [0.0-0.8 K/CMM] 0.1 K/CMM (07/11/15 6:11 AM) 0.1 K/CMM (07/09/15 5:21 AM) Eosinophils # [0.0-0.5 K/CMM] 0.1 K/CMM (07/11/15 6:11 AM) 0.1 K/CMM (07/09/15 5:21 AM) 0.2 K/CMM (07/08/15 11:29 PM) Basophils # [0.0-0.2 K/CMM] Immunizations No data available for this section Procedures Procedure Date Related Diagnosis Body Site Abdominal hysterectomy Social History Social History Type Response Alcohol Never Smoking Status Never smoker; Exposure to Tobacco Smoke None; Cigarette Smoking Last 365 Days No; Reg Smoking Cessation Counseling No Assessment and Plan Extracted from: Title: Discharge Summary * Author: Garrick Dillard MD Date: 07/11/15 Discharge Plan Pt was seen and followed by surgery. Kept on IV antibiotics and had several imaging tests performed. HIDA scan for Gallbladder was normal compared to previous tests that showed possible Acute Cholecystitis. Other findings were concerning for Pyelonephritis. Leukocytosis improved during hospitalization while on antibiotics. Pt is stabel today for discharge and is kayla home on Levaquin for 5 more days to complete a 7 days course. In addition she is to take the Probiotic prescribed for 5 days twice per day. Pt needs to follow up with Urology. Extracted from: Title: Progress Note * Author: Garrick Dillard MD Date: 07/10/15 Impression and Plan Pt is a 65 yo female with a PMH of HTN, GERD, and Asthma presents to the ED with complaints of abdominal pain. Pt states that she was going about her regular day at home cleaning up around the house. When she leaned over quickly suddenly she felt a sharp pain in [place] right side of her abdomen. Pain was excrutiating and would not cease. Upon investigation in the ED she wa found to have an acute cholecustitis on imaging. Abdominal Pain 2/2 Acute Cholecystitis -imaging shows an enlarged GB with sludge and stone present -pain seemed to resolve after pain medication given -no nausea or vomting -denied fevers or chills throughout the day PLAN: -Pain mgmt -will obtain HIDA scan for better assessment; results were normal -c/w IV abx and will d/c tomorrow on PO abx -IV Fluids -Surgery consult appreciated HTN -chronic PLAN: -c/w home meds GERD -established PLAN: -c/w PPI DVT/GI PPx Heparin and Protonix Dispo: from home; d/c tomorrow if continues toimprove and WBCs decrease FULL CODE Extracted from: Title: General Admission H&P * Author: Garrick Dillard MD Date: 07/09/15 Impression and Plan Pt is a 65 yo female with a PMH of HTN, GERD, and Asthma presents to the ED with complaints of abdominal pain. Pt states that she was going about her regular day at home cleaning up around the house. When she leaned over quickly suddenly she felt a sharp pain in [place] right side of her abdomen. Pain was excrutiating and would not cease. Upon investigation in the ED she wa found to have an acute cholecustitis on imaging. Abdominal Pain 2/2 Acute Cholecystitis -imaging shows an enlarged GB with sludge and stone present -pain seemed to resolve after pain medication given -no nausea or vomting -denied fevers or chills throughout the day PLAN: -Pain mgmt -will obtain HIDA scan for better assessment -c/w IV abx -IV Fluids -Surgery consult appreciated HTN -chronic PLAN: -c/w home meds GERD -established PLAN: -c/w PPI DVT/GI PPx Heparin and Protonix Dispo: from home; LOS dependnet on surgical intervention vs conservative management FULL CODE
--- OUTSIDE RECORDS SUMMARY | 2018-06-03 06:47 | XMS REPORT | Summary of Care ---
Author Author Organization Address Unknown Phone Unavailable Encounter NICOLETTE Wagner(MECHE) [id number] Date(s): 02/17/17 - 02/17/17 [id number], [place], [place] [address]- [phone] Discharge Disposition: Other Healthcare Facility Attending Physician: Lasha Lieberman MD Vital Signs 1 2 3 Most recent to oldest [Reference Range]: 152.4 cm (02/17/17 9:42 AM) Height 150/68 mmHg *HI* (02/17/17 1:09 PM) 139/69 mmHg (02/17/17 12:09 PM) 157/65 mmHg *HI* (02/17/17 11:09 AM) Blood Pressure [90-140/60-90 mmHg] 20 BRMIN (02/17/17 1:09 PM) 20 BRMIN (02/17/17 12:09 PM) 20 BRMIN (02/17/17 11:09 AM) Respiratory Rate [14-20 BRMIN] 52 bpm *LOW* (02/17/17 1:09 PM) 50 bpm *LOW* (02/17/17 12:09 PM) 52 bpm *LOW* (02/17/17 11:09 AM) Peripheral Pulse Rate [60-100 bpm] 133.636 kg (02/17/17 9:42 AM) Weight 57.54 m2 (02/17/17 9:42 AM) Body Mass Index Problem List Condition Effective Dates Status Health Status Informant Asthma(Confirmed) Resolved Gastroenteritis(Conf Resolved irmed) GERD Resolved (gastroesophageal reflux disease)(Confirmed) HTN Resolved (hypertension)(Confi rmed) Umbilical hernia, Resolved incarcerated(Confirm ed) Allergies, Adverse Reactions, Alerts Substance Reaction Severity Status iodinated radiocontrast Active dyes Medications aspirin 81 mg tablet, chewable 324 mg, Route: PO, Drug form: CHEWTAB, ONCE, Dosing Weight 133.636, kg, Priority : STAT, Start date: 02/17/17 10:26:00 SPEECH LANGUAGE PATHOLOGIST ASSISTANT, Stop date: 02/17/17 10:26:00 SPEECH LANGUAGE PATHOLOGIST ASSISTANT Start Date: 02/17/17 Stop Date: 02/17/17 Status: Completed ibuprofen 800 mg, PO, Q8H, PRN Pain Score 7-10, 0 Refill(s) Start Date: 02/17/17 Status: Ordered methocarbamol 750 mg oral tablet 1,500 mg=2 tab, PO, TID, PRN Pain Score 4-6, 0 Refill(s) Start Date: 02/17/17 Status: Ordered nitroglycerin 0.4 mg sublingual tablet 0.4 mg, Route: SL, ONCE, Dosing Weight 133.636, kg, Priority: STAT, Start date: 02/17/17 10:26:00 SPEECH LANGUAGE PATHOLOGIST ASSISTANT, Stop date: 02/17/17 10:26:00 SPEECH LANGUAGE PATHOLOGIST ASSISTANT Start Date: 02/17/17 Stop Date: 02/17/17 Status: Completed omeprazole 20 mg, PO, Daily, 0 Refill(s) Start Date: 02/17/17 Status: Ordered potassium chloride 20 mEq oral tablet, extended release 20 mEq=1 tab, PO, Daily, # 30 tab, 3 Refill(s) Start Date: 02/17/17 Status: Ordered Symbicort 160/4.5 inhalation aerosol with adapter 2 puff, INHALER, BID, PRN Shortness of breath, # 1 ea, 3 Refill(s) Start Date: 02/17/17 Status: Ordered Results ELECTROLYTES Most recent to 1 oldest [Reference Range]: Sodium Lvl [135-145 139 mEq/L mEq/L] (02/17/17 10:11 AM) Potassium Lvl 3.7 mEq/L [3.5-5.1 mEq/L] (02/17/17 10:11 AM) Chloride Lvl [95-109 100 mEq/L mEq/L] (02/17/17 10:11 AM) CO2 [24-32 mEq/L] 33 mEq/L *HI* (02/17/17 10:11 AM) AGAP [10.0-20.0 9.7 mEq/L mEq/L] *LOW* (02/17/17 10:11 AM) CHEM PANEL Most recent to 1 oldest [Reference Range]: Creatinine Lvl 0.85 mg/dL [0.50-1.40 mg/dL] (02/17/17 10:11 AM) eGFR 71 mL/min/1.73m2 1 *NA* (02/17/17 10:11 AM) BUN [7-22 mg/dL] 23 mg/dL *HI* (02/17/17 10:11 AM) Glucose Lvl [70-99 99 mg/dL mg/dL] (02/17/17 10:11 AM) Calcium Lvl 9.1 mg/dL [8.5-10.5 mg/dL] (02/17/17 10:11 AM) 1Result Comment: The eGFR is calculated using [...] be mul tiplied by the estimated BMI. CARDIAC ENZYMES Most recent to 1 oldest [Reference Range]: Total CK [12-191 52 unit/L unit/L] (02/17/17 10:11 AM) Troponin-I <0.02 ng/mL [0.00-0.40 ng/mL] (02/17/17 10:11 AM) proBNP [0-125 pg/mL] 251 pg/mL *HI* (02/17/17 10:11 AM) HEMATOLOGY Most recent to 1 oldest [Reference Range]: WBC [3.7-10.4 K/CMM] 7.2 K/CMM (02/17/17 10:11 AM) RBC [4.20-5.40 4.66 M/CMM M/CMM] (02/17/17 10:11 AM) Hgb [12.0-16.0 g/dL] 13.6 g/dL (02/17/17 10:11 AM) Hct [36.0-48.0 %] 41.7 % (02/17/17 10:11 AM) MCV [80.0-98.0 fL] 89.4 fL (02/17/17 10:11 AM) MCH [27.0-31.0 pg] 29.3 pg (02/17/17 10:11 AM) MCHC [32.0-36.0 32.7 g/dL g/dL] (02/17/17 10:11 AM) RDW [11.5-14.5 %] 13.2 % (02/17/17 10:11 AM) Platelet [133-450 200 K/CMM K/CMM] (02/17/17 10:11 AM) MPV [7.4-10.4 fL] 12.1 fL *HI* (02/17/17 10:11 AM) Segs [45.0-75.0 %] 74.0 % (02/17/17 10:11 AM) Lymphocytes 18.2 % [20.0-40.0 %] *LOW* (02/17/17 10:11 AM) Monocytes [2.0-12.0 5.4 % %] (02/17/17 10:11 AM) Eosinophils [0.0-4.0 2.1 % %] (02/17/17 10:11 AM) Basophils [0.0-1.0 0.3 % %] (02/17/17 10:11 AM) Segs-Bands # 5.3 K/CMM [1.5-8.1 K/CMM] (02/17/17 10:11 AM) Lymphocytes # 1.3 K/CMM [1.0-5.5 K/CMM] (02/17/17 10:11 AM) Monocytes # [0.0-0.8 0.4 K/CMM K/CMM] (02/17/17 10:11 AM) Eosinophils # 0.2 K/CMM [0.0-0.5 K/CMM] (02/17/17 10:11 AM) Immunizations No data available for this section Procedures Procedure Date Related Diagnosis Body Site Abdominal hysterectomy Social History Social History Type Response Substance Abuse Use: None. Alcohol Never Smoking Status Never smoker; Exposure to Tobacco Smoke None; Cigarette Smoking Last 365 Days No; Reg Smoking Cessation Counseling No Assessment and Plan No data available for this section
--- OUTSIDE RECORDS SUMMARY | 2018-06-03 06:47 | XMS REPORT | Summary of Care ---
Author Author [facility] Organization [facility] Address Unknown Phone Unavailable Encounter NICOLETTE Wagner(MECHE) [id number] Date(s): 02/17/17 - 02/18/17 [facility] [address] [employer] provided by [facility] [place] [address]- Discharge Disposition: Home or Self Care Attending Physician: Tanisha Garcia MD Admitting Physician: Tanisha Garcia MD Referring Physician: Lasha Lieberman MD Vital Signs 1 2 3 Most recent to oldest [Reference Range]: 152.4 cm (02/17/17 2:38 PM) Height 96.5 DegF (02/18/17 7:25 AM) 97.7 DegF (02/18/17 2:33 AM) 97.8 DegF (02/17/17 10:55 PM) Temperature Oral [96.4-99.1 DegF] 128/63 mmHg (02/18/17 7:25 AM) 121/56 mmHg (02/18/17 2:33 AM) 118/47 mmHg (02/17/17 10:55 PM) Blood Pressure [90-140/60-90 mmHg] 18 BRMIN (02/18/17 2:33 AM) 18 BRMIN (02/17/17 10:55 PM) 18 BRMIN (02/17/17 7:41 PM) Respiratory Rate [14-20 BRMIN] 53 bpm *LOW* (02/18/17 2:33 AM) 56 bpm *LOW* (02/17/17 10:55 PM) 62 bpm (02/17/17 7:41 PM) Peripheral Pulse Rate [60-100 bpm] 134 kg (02/17/17 2:38 PM) Weight 57.69 m2 (02/17/17 2:38 PM) Body Mass Index Problem List Condition Effective Dates Status Health Status Informant Asthma(Confirmed) Resolved Gastroenteritis(Conf Resolved irmed) GERD Resolved (gastroesophageal reflux disease)(Confirmed) HTN Resolved (hypertension)(Confi rmed) Umbilical hernia, Resolved incarcerated(Confirm ed) Allergies, Adverse Reactions, Alerts Substance Reaction Severity Status iodinated radiocontrast Active dyes Medications aspirin 81 mg tablet, chewable 81 mg, 1 tab, Route: PO, Drug form: CHEWTAB, Daily, Dosing Weight 134, kg, Start date: 02/18/17 9:00:00 ARTIST REPRESENTATIVE, Duration: 30 day, Stop date: 03/19/17 9:00:00 ARTIST REPRESENTATIVE Start Date: 02/18/17 Stop Date: 02/18/17 Status: Discontinued aspirin 81 mg tablet, enteric coated 81 mg, 1 tab, Route: PO, Drug form: ECTAB, Daily, Dosing Weight 134, kg, Start d ate: 02/17/17 17:26:00 ARTIST REPRESENTATIVE, Duration: 30 day, Stop date: 03/19/17 9:00:00 ARTIST REPRESENTATIVE Notes: Do not crush or chew.(Same As: Ecotrin) Start Date: 02/17/17 Stop Date: 02/17/17 Status: Discontinued Lipitor 80 mg, 1 tab, Route: PO, Drug form: TAB, Bedtime, Dosing Weight 134, kg, Start d ate: 02/17/17 21:00:00 ARTIST REPRESENTATIVE, Duration: 30 day, Stop date: 03/18/17 21:00:00 ARTIST REPRESENTATIVE Notes: Same as Lipitor Start Date: 02/17/17 Stop Date: 02/18/17 Status: Discontinued lisinopril 5 mg, 1 tab, Route: PO, Drug form: TAB, Daily, Dosing Weight 134, kg, Start date : 02/18/17 9:00:00 ARTIST REPRESENTATIVE, Duration: 30 day, Stop date: 03/19/17 9:00:00 ARTIST REPRESENTATIVE Notes: (Same as: Prinivil, Zestril) Start Date: 02/18/17 Stop Date: 02/18/17 Status: Discontinued morphine Sulfate 2 mg, 0.5 mL, Route: IVP, Drug form: SOLN, Q15Min, Dosing Weight 134, kg, PRN Ch est Pain, Start date: 02/17/17 17:27:00 ARTIST REPRESENTATIVE, Duration: 2 doses or times, Stop da te: Limited # of times Notes: (Same as:MORPhine Sulfate) Start Date: 02/17/17 Stop Date: 02/18/17 Status: Discontinued morphine Sulfate 1 mg, 0.25 mL, Route: IVP, Drug form: SOLN, Q2H, Dosing Weight 134, kg, PRN Pain Score 7-10, Start date: 02/17/17 16:52:00 ARTIST REPRESENTATIVE, Duration: 30 day, Stop date: 16:51:00 ARTIST REPRESENTATIVE Notes: (Same as:MORPhine Sulfate) Start Date: 02/17/17 Stop Date: 02/18/17 Status: Discontinued nitroglycerin SL Tab 0.4 mg, 1 tab, Route: SL, Drug form: TAB, Q5Min, Dosing Weight 134, kg, PRN Ches t Pain, Start date: 02/17/17 17:27:00 ARTIST REPRESENTATIVE, Duration: 3 doses or times, Stop date : Limited # of times Start Date: 02/17/17 Stop Date: 02/18/17 Status: Discontinued Nitrostat 0.4 mg sublingual tablet 0.4 mg, 1 tab, Route: SL, Drug form: TAB, Q5Min, Dosing Weight 134, kg, PRN Ches t Pain, Start date: 02/17/17 16:51:00 ARTIST REPRESENTATIVE, Duration: 30 day, Stop date: 03/19/17 16:50:00 ARTIST REPRESENTATIVE Notes: (Same as:Nitroquick, Nitrostat)"Do Not Crush" Sublingual tablet Start Date: 02/17/17 Stop Date: 02/17/17 Status: Discontinued [place] 5/325 oral tablet 1 tab, Route: PO, Drug Form: TAB, Dosing Weight 134, kg, ONCE, Start date: 02/18 9:31:00 ARTIST REPRESENTATIVE, Stop date: 02/18/17 9:31:00 ARTIST REPRESENTATIVE Notes: (Same as: [place] 325/5) Do not exceed 4gm/day of acetaminophen. Start Date: 02/18/17 Stop Date: 02/18/17 Status: Completed ondansetron 4 mg, 1 tab, Route: PO, Drug form: TAB, Q8H, Dosing Weight 134, kg, PRN Nausea & Vomiting, Start date: 02/17/17 17:27:00 ARTIST REPRESENTATIVE, Duration: 30 day, Stop date: 03/19 17:26:00 ARTIST REPRESENTATIVE Notes: (Same as: Zofran) Start Date: 02/17/17 Stop Date: 02/18/17 Status: Discontinued Saline Flush 0.9% 10 ml, Route: IVP, Drug Form: INJ, Dosing Weight 134, kg, Q12H, Start date: 01/24 09/08 21:00:00 ARTIST REPRESENTATIVE, Duration: 30 day, Stop date: 03/19/17 9:00:00 ARTIST REPRESENTATIVE Notes: (Same as: BD Posiflush) Start Date: 02/17/17 Stop Date: 02/18/17 Status: Discontinued Saline Flush 0.9% 10 ml, Route: IVP, Drug Form: INJ, Dosing Weight 134, kg, PRN, PRN Line Flush, S tart date: 02/17/17 17:27:00 ARTIST REPRESENTATIVE, Duration: 30 day, Stop date: 03/19/17 17:26:00 ARTIST REPRESENTATIVE Notes: (Same as: BD Posiflush) Start Date: 02/17/17 Stop Date: 02/18/17 Status: Discontinued Tylenol with Codeine #3 oral tablet 2 tab, Route: PO, Drug Form: TAB, Dosing Weight 134, kg, Q6H, PRN Pain Score 4-6 , Start date: 02/17/17 16:52:00 ARTIST REPRESENTATIVE, Duration: 30 day, Stop date: 03/19/17 16:51 :00 ARTIST REPRESENTATIVE Notes: Do not exceed 4gm/day of acetaminophen. (Same as: Tylenol with Codeine # 3) Start Date: 02/17/17 Stop Date: 02/18/17 Status: Discontinued Tylenol with Codeine #3 oral tablet 1 tab, Route: PO, Drug Form: TAB, Dosing Weight 134, kg, Q6H, PRN Pain Score 1-3 , Start date: 02/17/17 16:52:00 ARTIST REPRESENTATIVE, Duration: 30 day, Stop date: 03/19/17 16:51 :00 ARTIST REPRESENTATIVE Notes: Do not exceed 4gm/day of acetaminophen. (Same as: Tylenol with Codeine # 3) Start Date: 02/17/17 Stop Date: 02/18/17 Status: Discontinued Results ELECTROLYTES Most recent to 1 2 oldest [Reference Range]: Sodium Lvl [135-145 142 mEq/L mEq/L] (02/18/17 3:17 AM) Potassium Lvl 3.6 mEq/L [3.5-5.1 mEq/L] (02/18/17 3:17 AM) Chloride Lvl [95-109 104 mEq/L mEq/L] (02/18/17 3:17 AM) CO2 [24-32 mEq/L] 32 mEq/L (02/18/17 3:17 AM) AGAP [10.0-20.0 9.6 mEq/L mEq/L] *LOW* (02/18/17 3:17 AM) CHEM PANEL Most recent to 1 2 oldest [Reference Range]: Creatinine Lvl 0.76 mg/dL [0.50-1.40 mg/dL] (02/18/17 3:17 AM) eGFR 81 mL/min/1.73m2 1 *NA* (02/18/17 3:17 AM) BUN [7-22 mg/dL] 24 mg/dL *HI* (02/18/17 3:17 AM) Glucose Lvl [70-99 105 mg/dL mg/dL] *HI* (02/18/17 3:17 AM) Calcium Lvl 8.6 mg/dL [8.5-10.5 mg/dL] (02/18/17 3:17 AM) 1Result Comment: The eGFR is calculated [...] BMI. CARDIAC ENZYMES Most recent to 1 2 oldest [Reference Range]: Total CK [12-191 43 unit/L 43 unit/L unit/L] (02/17/17 9:34 PM) (02/17/17 5:33 PM) Troponin-T <0.010 ng/mL <0.010 ng/mL [0.000-0.100 ng/mL] (02/17/17 9:34 PM) (02/17/17 5:33 PM) Troponin-I <0.02 ng/mL <0.02 ng/mL [0.00-0.40 ng/mL] (02/17/17 9:34 PM) (02/17/17 5:33 PM) LIPIDS Most recent to 1 2 oldest [Reference Range]: CHD Risk [3.90-5.80] 3.53 *LOW* (02/17/17 5:33 PM) Chol [<=199 mg/dL] 180 mg/dL (02/17/17 5:33 PM) Trig [<=149 mg/dL] 133 mg/dL (02/17/17 5:33 PM) HDL [>=61 mg/dL] 51 mg/dL *LOW* (02/17/17 5:33 PM) LDL (Calculated) 102 mg/dL [<=99 mg/dL] *HI* (02/17/17 5:33 PM) VLDL 27 *NA* (02/17/17 5:33 PM) HEMATOLOGY Most recent to 1 2 oldest [Reference Range]: WBC [3.7-10.4 K/CMM] 7.5 K/CMM (02/18/17 3:17 AM) RBC [4.20-5.40 4.21 M/CMM M/CMM] (02/18/17 3:17 AM) Hgb [12.0-16.0 g/dL] 12.7 g/dL (02/18/17 3:17 AM) Hct [36.0-48.0 %] 37.6 % (02/18/17 3:17 AM) MCV [80.0-98.0 fL] 89.3 fL (02/18/17 3:17 AM) MCH [27.0-31.0 pg] 30.2 pg (02/18/17 3:17 AM) MCHC [32.0-36.0 33.8 g/dL g/dL] (02/18/17 3:17 AM) RDW [11.5-14.5 %] 13.6 % (02/18/17 3:17 AM) Platelet [133-450 161 K/CMM K/CMM] (02/18/17 3:17 AM) MPV [7.4-10.4 fL] 11.2 fL *HI* (02/18/17 3:17 AM) Segs [45.0-75.0 %] 67.1 % (02/18/17 3:17 AM) Lymphocytes 21.5 % [20.0-40.0 %] (02/18/17 3:17 AM) Monocytes [2.0-12.0 8.5 % %] (02/18/17 3:17 AM) Eosinophils [0.0-4.0 2.3 % %] (02/18/17 3:17 AM) Basophils [0.0-1.0 0.6 % %] (02/18/17 3:17 AM) Segs-Bands # 5.0 K/CMM [1.5-8.1 K/CMM] (02/18/17 3:17 AM) Lymphocytes # 1.6 K/CMM [1.0-5.5 K/CMM] (02/18/17 3:17 AM) Monocytes # [0.0-0.8 0.6 K/CMM K/CMM] (02/18/17 3:17 AM) Eosinophils # 0.2 K/CMM [0.0-0.5 K/CMM] (02/18/17 3:17 AM) Immunizations No data available for this section Procedures Procedure Date Related Diagnosis Body Site Abdominal hysterectomy Social History Social History Type Response Substance Abuse Use: None. Alcohol Never Smoking Status Never smoker; Exposure to Tobacco Smoke None; Cigarette Smoking Last 365 Days No; Reg Smoking Cessation Counseling No Assessment and Plan Extracted from: Title: History and Physical Author: Lance Jacob DO Date: 02/17/17 Chest pain I will observe her on telemetry. Initial 2 troponins are not elevated. Her EKG demonstratessinus bradycardia with a normal axisand no STdeviations. She is on metoprolol 50 mgp.o.dailyat homewhich could explain her bradycardia. I have a very low suspicion for acute coronary syndrome. She does not appear to be in heart failure and is hemodynamically stable on room air thus I do not feel there is a need to obtain an echocardiogram. If she remains stable tomorrow I will discharge her follow-up with her primary care provider. Ordered: Admit/Condition, 02/17/17 15:19:00 ARTIST REPRESENTATIVE, Status: Out Patient with Observation Services, Telemetry, Expected LOS: 1 Midnight, Lance Jacob DO, Admit MD Review/Approve Yes, Isolation: No Isolation/Standard Precautions Admit/Condition, 02/17/17 17:27:00 ARTIST REPRESENTATIVE, Status: Out Patient with Observation Services, Telemetry, Reason: Chest Pain, Expected LOS: 1 Midnight, Lance Jacob DO, Admit MD Review/Approve Yes, Isolation: No Isolation/Standard Precautions Ambulation Continue observation
--- OUTSIDE RECORDS SUMMARY | 2018-06-03 06:47 | XMS REPORT | Continuity of Care Document ---
Author Author [facility] Interface Address Unknown Phone Unavailable Problems Problem Status Onset Date Classification Date Reported Comments Source Screening for osteoporosis 06/17/2017 Diagnosis 06/17/2017 [facility] Screening for malignant neoplasm of colon 06/17/2017 Diagnosis 06/17/2017 [facility] Chest pain 02/19/2017 Diagnosis 06/17/2017 [facility] CHEST PAIN Active 02/17/2017 [facility] Lumbago with sciatica 12/28/2016 Diagnosis 06/17/[address] [facility] Acute low back pain 12/28/2016 Diagnosis 06/17/[address] [facility] Muscle pain 12/20/2016 Diagnosis 06/17/[address] [facility] Dermatophytosis 12/20/2016 Diagnosis 06/17/[address] [facility] Body mass index 40+ - severely obese 10/18/2016 Diagnosis 06/17/2017 [facility] Acute exacerbation of chronic obstructive airways disease 05/25/2016 Diagnosis 06/17/2017 [facility] Postmenopausal state 05/14/2016 Diagnosis 06/17/2017 [facility] Immunization 05/14/2016 Diagnosis 06/17/2017 [facility] Screening mammography 05/14/2016 Diagnosis 06/17/2017 [facility] Pain in left foot 05/14/2016 Diagnosis 06/17/2017 [facility] Morbid obesity 05/14/2016 Diagnosis 06/17/2017 [facility] Chronic obstructive lung disease 05/14/2016 Diagnosis 06/17/2017 [facility] Gastroesophageal reflux disease 05/14/2016 Diagnosis 06/17/2017 [facility] Hypertensive heart disease 05/14/2016 Diagnosis 06/17/2017 [facility] Prediabetes 05/14/2016 Problem 06/17/2017 [facility] On Examination - Eyes - Arcus Senilis 01/26/2016 Problem 06/17/[address] [facility] Bilateral Age-related Nuclear Cataracts 01/26/2016 Problem 06/17/2017 [facility] ABD PAIN Active 07/08/2015 [facility] Morbid Obesity 04/18/2015 Problem 06/17/2017 [facility] Hypertensive Heart Disease 04/18/2015 Problem 06/17/[address] [facility] Chronic Obstructive Lung Disease 04/18/2015 Problem 06/17/[address] [facility] Gastroesophageal Reflux Disease 04/18/2015 Problem 06/17/[address] [facility] Idiopathic Osteoarthritis 04/18/2015 Problem 06/17/[address] [facility] Arthropathy 04/18/2015 Problem 06/17/2017 [facility] Body Mass Index 40+ - Severely Obese 04/18/2015 Problem 06/17/2017 [facility] Lesion of Lung 04/18/2015 Problem 06/17/[address] [facility] Asthma Resolved Problem 02/21/2017 [facility] Gastroenteritis Resolved Problem 02/21/2017 [facility] GERD (<span ID="[id number]">Confirmed</span>) Resolved Problem 02/21/2017 [facility] HTN (<span ID="[id number]">Confirmed</span>) Resolved Problem 02/21/2017 [facility] Umbilical hernia, incarcerated Resolved Problem 02/21/2017 [facility] CALCULUS OF GALLBLADDER W/O CHOLECYSTITI Active [facility] Medications Medication Details Route Status Patient Instructions Ordering Provider Order Date Source Vios Aerosol Delivery System Vios Aerosol Delivery System Active 06/17/2017 [facility] Clotrimazole 10 MG/ML Topical Cream clotrimazole 1 % topical cream Active 02/19/2017 [facility] 2 ML Ketorolac Tromethamine 30 MG/ML Injection ketorolac 60 mg/2 mL intramuscular solution Inject 2 mL as needed by intramuscular route for 2 days. Active 02/19/2017 [facility] methylprednisolone 4 mg tablets in a dose pack methylprednisolone 4 mg tablets in a dose pack Active 02/19/2017 [facility] Triamcinolone Acetonide 1 MG/ML Topical Cream triamcinolone acetonide 0.1 % topical cream Active 02/19/2017 [facility] Acetaminophen 325 MG / Hydrocodone Bitartrate 5 MG Oral Tablet [[place] 5/325] 1 tab, Route: PO, Drug Form: TAB, Dosing Weight 134, kg, ONCE, Start date: 02/18/17 9:31:00 CHROME TANNER, Stop date: 02/18/17 9:31:00 CSTNotes: (Same as: [place] 325/5) Do not exceed 4gm/day of acetaminophen. Inactive 02/18/2017 [facility] Lisinopril 5 mg, 1 tab, Route: PO, Drug form: TAB, Daily, Dosing Weight 134, kg, Start date: 02/18/17 9:00:00 CHROME TANNER, Duration: 30 day, Stop date: 03/19/17 9:00:00 CSTNotes: (Same as: Prinivil, Zestril) Inactive 02/18/2017 [facility] Aspirin 81 MG Chewable Tablet 81 mg, 1 tab, Route: PO, Drug form: CHEWTAB, Daily, Dosing Weight 134, kg, Start date: 02/18/17 9:00:00 CHROME TANNER, Duration: 30 day, Stop date: 03/19/17 9:00:00 CHROME TANNER Inactive 02/18/2017 [facility] Lipitor 80 mg, 1 tab, Route: PO, Drug form: TAB, Bedtime, Dosing Weight 134, kg, Start date: 02/17/17 21:00:00 CHROME TANNER, Duration: 30 day, Stop date: 03/18/17 21:00:00 CSTNotes: Same as Lipitor No Longer Active 02/18/2017 [facility] Saline Flush 0.9% 10 ml, Route: IVP, Drug Form: INJ, Dosing Weight 134, kg, Q12H, Start date: 02/17/17 21:00:00 CHROME TANNER, Duration: 30 day, Stop date: 03/19/17 9:00:00 CSTNotes: (Same as: BD Posiflush) No Longer Active 02/18/2017 [facility] Saline Flush 0.9% 10 ml, Route: IVP, Drug Form: INJ, Dosing Weight 134, kg, PRN, PRN Line Flush, Start date: 02/17/17 17:27:00 CHROME TANNER, Duration: 30 day, Stop date: 03/19/17 17:26:00 CSTNotes: (Same as: BD Posiflush) No Longer Active 02/17/2017 [facility] Ondansetron 4 mg, 1 tab, Route: PO, Drug form: TAB, Q8H, Dosing Weight 134, kg, PRN Nausea & Vomiting, Start date: 02/17/17 17:27:00 CHROME TANNER, Duration: 30 day, Stop date: 03/19/17 17:26:00 CSTNotes: (Same as: Zofran) No Longer Active 02/17/2017 [facility] Nitroglycerin 0.4 mg, 1 tab, Route: SL, Drug form: TAB, Q5Min, Dosing Weight 134, kg, PRN Chest Pain, Start date: 02/17/17 17:27:00 CHROME TANNER, Duration: 3 doses or times, Stop date: Limited # of times No Longer Active 02/17/2017 [facility] Morphine 2 mg, 0.5 mL, Route: IVP, Drug form: SOLN, Q15Min, Dosing Weight 134, kg, PRN Chest Pain, Start date: 02/17/17 17:27:00 CHROME TANNER, Duration: 2 doses or times, Stop date: Limited # of timesNotes: (Same as:M ORPhine Sulfate) No Longer Active 02/17/2017 [facility] aspirin 81 mg tablet, enteric coated 81 mg, 1 tab, Route: PO, Drug form: ECTAB, Daily, Dosing Weight 134, kg, Start date: 02/17/17 17:26:00 CHROME TANNER, Duration: 30 day, Stop date: 03/19/17 9:00:00 CSTNotes: Do not crush or chew. (Same As: Ecotrin) Inactive 02/17/2017 [facility] Morphine 1 mg, 0.25 mL, Route: IVP, Drug form: SOLN, Q2H, Dosing Weight 134, kg, PRN Pain Score 7-10, Start date: 02/17/17 16:52:00 CHROME TANNER, Duration: 30 day, Stop date: 03/19/17 16:51:00 CSTNotes: (Same as:MORPhine Sulfate) No Longer Active 02/17/2017 [facility] Acetaminophen 300 MG / Codeine Phosphate 30 MG Oral Tablet [Tylenol with Codeine #3] 2 tab, Route: PO, Drug Form: TAB, Dosing Weight 134, kg, Q6H, PRN Pain Score 4-6, Start date: 02/17/17 16:52:00 CHROME TANNER, Duration: 30 day, Stop date: 03/19/17 16:51:00 CSTNotes: Do not exceed 4gm/day of froy taminophen. (Same as: Tylenol with Codeine # 3) No Longer Active 02/17/2017 [facility] Nitroglycerin 0.4 MG Sublingual Tablet [Nitrostat] 0.4 mg, 1 tab, Route: SL, Drug form: TAB, Q5Min, Dosing Weight 134, kg, PRN Chest Pain, Start date: 02/17/17 16:51:00 CHROME TANNER, Duration: 30 day, Stop date: 03/19/17 16:50:00 CSTNotes: (Same as:Nitroquick, Nitrostat) "Do Not Crush" Sublingual tablet Inactive 02/17/2017 [facility] Symbicort 160/4.5 inhalation aerosol with adapter 2 puff, INHALER, BID, PRN Shortness of breath, # 1 ea, 3 Refill(s) Active 02/17/2017 [facility] potassium chloride 20 mEq oral tablet, extended release 20 mEq=1 tab, PO, Daily, # 30 tab, 3 Refill(s) Active 02/17/2017 [facility] Ibuprofen 800 mg, PO, Q8H, PRN Pain Score 7-10, 0 Refill(s) Active 02/17/2017 [facility] Omeprazole 20 mg, PO, Daily, 0 Refill(s) Active 02/17/2017 [facility] methocarbamol 750 mg oral tablet 1,500 mg=2 tab, PO, TID, PRN Pain Score 4-6, 0 Refill(s) Active 02/17/2017 [facility] Nitroglycerin 0.4 MG Sublingual Tablet 0.4 mg, Route: SL, ONCE, Dosing Weight 133.636, kg, Priority: STAT, Start date: 02/17/17 10:26:00 CHROME TANNER, Stop date: 02/17/17 10:26:00 CHROME TANNER Inactive 02/17/2017 [facility] Aspirin 81 MG Chewable Tablet 324 mg, Route: PO, Drug form: CHEWTAB, ONCE, Dosing Weight 133.636, kg, Priority: STAT, Start date: 02/17/17 10:26:00 CHROME TANNER, Stop date: 02/17/17 10:26:00 CHROME TANNER Inactive 02/17/2017 [facility] doxycycline hyclate 100 MG Oral Capsule doxycycline hyclate 100 mg capsule Active 10/18/2016 [facility] Acetaminophen 300 MG / Codeine Phosphate 15 MG Oral Tablet acetaminophen 300 mg-codeine 15 mg tablet Active 05/14/2016 [facility] Amoxicillin 875 MG / Clavulanate 125 MG Oral Tablet amoxicillin 875 mg-potassium clavulanate 125 mg tablet Active 05/14/2016 [facility] Azithromycin 500 MG Oral Tablet azithromycin 500 mg tablet Active 05/14/2016 [facility] Docusate Sodium 100 MG Oral Tablet docusate sodium 100 mg tablet Take 1 tablet every day by oral route as needed. Active 05/14/2016 [facility] Fluconazole 150 MG Oral Tablet fluconazole 150 mg tablet Active 05/14/2016 [facility] Ibuprofen 400 MG Oral Tablet ibuprofen 400 mg tablet Active 05/14/2016 [facility] Lactulose 667 MG/ML Oral Solution lactulose 10 gram/15 mL oral solution Active 05/14/2016 [facility] Levofloxacin 750 MG Oral Tablet levofloxacin 750 mg tablet Active 05/14/2016 [facility] terbinafine 250 MG Oral Tablet terbinafine HCl 250 mg tablet Active 05/14/2016 [facility] tramadol hydrochloride 50 MG Oral Tablet tramadol 50 mg tablet Active 05/14/2016 [facility] zafirlukast 20 MG Oral Tablet zafirlukast 20 mg tablet Active 05/14/2016 [facility] metoprolol extended release 50 mg, 1 tab, Route: PO, Drug form: ERTAB, Daily, Start date: 07/11/15 16:00:00 CDT, Duration: 30 day, Stop date: 08/10/15 9:00:00 CDTNotes: (Same as: Toprol XL) May split tab, but do not crush. Inactive 07/11/2015 [facility] Losartan 100 mg, 2 tab, Route: PO, Drug form: TAB, Daily, Dosing Weight 136.96, kg, Start date: 07/11/15 14:00:00 CDT, Duration: 30 day, Stop date: 08/10/15 9:00:00 CDTNotes: (Same as: Cozaar) Inactive 07/11/2015 [facility] Furosemide 40 mg, 1 tab, Route: PO, Drug form: TAB, Daily, Dosing Weight 136.96, kg, Start date: 07/11/15 14:00:00 CDT, Duration: 30 day, Stop date: 08/10/15 9:00:00 CDTNotes: (Same as: Lasix) May cause GI upset. Give with food or milk. Inactive 07/11/2015 [facility] bifidobacterium-lactobacillus oral capsule 1 cap, PO, BID, # 10 cap, 0 Refill(s) Active 07/11/2015 [facility] Levofloxacin 750 MG Oral Tablet [Levaquin] 750 mg=1 tab, PO, Daily, X 5 day, # 5 tab, 0 Refill(s) Active 07/11/2015 [facility] Acetaminophen 300 MG / Codeine Phosphate 15 MG Oral Tablet 1 tab, PO, Q4H, PRN Pain, X 3 day, # 18 tab, 0 Refill(s) Active 07/11/2015 [facility] Albuterol 0.833 MG/ML / Ipratropium [place] 0.167 MG/ML Inhalant Solution [DuoNeb] 3 ml, Route: NEB, Drug Form: SOLN, Dosing Weight 136.96, kg, ONCE, PRN Respiratory Protocol, Start date: 07/11/15 12:22:00 CDT, Stop date: 08/10/15 12:21:00 CDTNotes: (Same as: Duoneb) Inactive 07/11/2015 [facility] Calcium Gluconate 3 gm, 30 mL, Route: IVPB, PRN, Dosing Weight 136.96, kg, PRN Abnormal Lab Result, For NON-ICU Patients Only., Start date: 07/10/15 10:15:00 CDT, Duration: 30 day, Stop date: 08/09/15 10:14:00 CDTNotes: WASTE: F/P - Sink; E - Municipal Trash Bin No Longer Active 07/10/2015 [facility] Magnesium Oxide 800 mg, 2 tab, Route: PO, Drug form: TAB, PRN, Dosing Weight 136.96, kg, PRN Abnormal Lab Result, For NON-ICU Patients Only., Start date: 07/10/15 10:15:00 CDT, Duration: 30 day, Stop date: 08/09/15 10:14:00 CDTNotes: (Same as: Mag-Ox 400) Magnesium oxide [id number] elemental magnesium Dose=____mg magnesium oxide (___mg elemental magnesium) No Longer Active 07/10/2015 [facility] sodium phosphate + Sodium Chloride 0.9% IV 250 mL 30 mmol, 10 mL, Route: IVPB, PRN, Dosing Weight 136.96, kg, PRN Abnormal Lab Result, For NON-ICU Patients Only., Start date: 07/10/15 10:15:00 CDT, Duration: 30 day, Stop date: 08/09/15 10:14:00 CDT No Longer Active 07/10/2015 [facility] Magnesium Sulfate 1 gm, 100 mL, Route: IVPB, Drug form: INJ, PRN, Dosing Weight 136.96, kg, PRN Abnormal Lab Result, For NON-ICU Patients Only., Start date: 07/10/15 10:15:00 CDT, Duration: 30 day, Stop date: 08/09/15 10:14:00 CDTNotes: WASTE: F/P - Sink; E - Municipal Trash Bin No Longer Active 07/10/2015 [facility] potassium phosphate + Sodium Chloride 0.9% IV 250 mL 30 mmol, 10 mL, Route: IVPB, PRN, Dosing Weight 136.96, kg, PRN Abnormal Lab Result, For NON-ICU Patients Only., Start date: 07/10/15 10:15:00 CDT, Duration: 30 day, Stop date: 08/09/15 10:14:00 CDTNotes: (Same as: K Phosphate.) 1 mMol phoshate has 1.47 mEq potassium Infuse over 4 hours No Longer Active 07/10/2015 [facility] potassium chloride 10 mEq, 100 mL, Route: IVPB, Drug form: INJ, PRN, Dosing Weight 136.96, kg, PRN Abnormal Lab Result, For NON-ICU Patients Only, Start date: 07/10/15 10:15:00 CDT, Duration: 30 day, Stop date: 08/09/15 10:14:00 CDTNotes: Infuse at a rate of 10 mEq/hr. (Same as: KCL) No Longer Active 07/10/2015 [facility] potassium phosphate-sodium phosphate 250 mg-278 mg-164 mg oral powder 2 pkt, Route: PO, Drug Form: PDR/REC, Dosing Weight 136.96, kg, PRN, PRN Abnormal Lab Result, For NON-ICU Patients Only, Start date: 07/10/15 10:15:00 CDT, Duration: 30 day, Stop date: 08/09/15 10:14:00 CDTNotes: (Same as: Neutra-Phos) Each 1.25 gm pkt has 250mg phosphorous. Mix w/2.5oz water and stir. No Longer Active 07/10/2015 [facility] potassium chloride 10 mEq, 100 mL, Route: IVPB, Drug form: INJ, Q1H, Dosing Weight 136.96, kg, Total Dose=40 mEq; Peripheral Line, Start date: 07/10/15 8:00:00 CDT, Duration: 4 doses or times, Stop date: 07/10/15 11:00:00 CDTNotes: Infuse at a rate of 10 mEq/hr. (Same as: KCL) Inactive 07/10/2015 [facility] potassium phosphate + Sodium Chloride 0.9% IV 250 mL 30 mmol, 10 mL, Route: IVPB, ONCE, Dosing Weight 136.96, kg, Start date: 07/10/15 7:41:00 CDT, Stop date: 07/10/15 7:41:00 CDTNotes: (Same as: K Phosphate.) 1 mMol phoshate has 1.47 mEq potassium Infuse over 4 hours Inactive 07/10/2015 [facility] Levaquin 500 mg, 100 mL, Route: IVPB, Drug form: SOLN, [id number], Dosing Weight 136.96, kg, Priority: STAT, Start date: 07/10/15 4:16:00 CDT, Duration: 30 day, Stop date: 08/08/15 4:16:00 CDTNotes: (Same as:Levaquin) No Longer Active 07/10/2015 [facility] Furosemide 40 mg, PO, Daily, 0 Refill(s) Active 07/10/2015 [facility] Losartan 100 mg, PO, Daily, 0 Refill(s) Active 07/10/2015 [facility] metoprolol extended release 50 mg, PO, Daily, 0 Refill(s) Active 07/10/2015 [facility] Zosyn + Sodium Chloride 0.9% IV 100 mL 3.375 gm, Route: IVPB, ABXQ8H, Start date: 07/09/15 20:00:00 CDT, Duration: 30 day, Stop date: 08/08/15 9:00:00 CDTNotes: (Same as: Zosyn) Dosing based on Piperacillin component MEDICATION WASTE Product Size: 3375 mg Product Wasted: ___ mg No Longer Active 07/10/2015 [facility] Zosyn 4.5 gm, Route: IV, Drug form: INJ, ABXQ6H, Dosing Weight 136.96, kg, Start date: 07/09/15 16:00:00 CDT, Duration: 30 day, Stop date: 08/08/15 10:00:00 CDT, Substitute Allowed No, > 40 kg; Pediatric Dosing Inactive 07/09/2015 [facility] Bentyl 20 mg, 1 tab, Route: PO, Drug form: TAB, QID, Dosing Weight 135, kg, Start date: 07/09/15 9:00:00 CDT, Duration: 30 day, Stop date: 08/07/15 21:00:00 CDTNotes: (Same as: Bentyl) Inactive 07/09/2015 [facility] heparin 7,500 unit, 1.5 mL, Route: SUB-Q, Drug form: INJ, Q8H-06, Dosing Weight 135, kg, Consider for obese patients, Start date: 07/09/15 6:00:00 CDT, Duration: 30 day, Stop date: 08/07/15 22:00:00 CDTNotes: porcine heparin No Longer Active 07/09/2015 [facility] Zosyn 3.375 gm, Route: IVPB, ABXQ8H, Dosing Weight 135, kg, Start date: 07/09/15 5:00:00 CDT, Duration: 30 day, Stop date: 08/07/15 21:00:00 CDTNotes: (Same as: Zosyn) Dosing based on Piperacillin component MEDICATION WASTE Product Size: 3375 mg Product Wasted: ___ mg Inactive 07/09/2015 [facility] Flagyl 500 mg, 100 mL, Route: IVPB, Drug form: INJ, ABXQ8H, Dosing Weight 135, kg, Start date: 07/09/15 3:00:00 CDT, Duration: 30 day, Stop date: 08/07/15 19:00:00 CDTNotes: (Same as: Flagyl) Avoid alcohol. No Longer Active 07/09/2015 [facility] Protonix 40 mg, Route: IVP, Drug form: INJ, BID, Dosing Weight 135, kg, Patient is NPO, Priority: STAT, Start date: 07/09/15 2:55:00 CDT, Duration: 30 day, Stop date: 08/07/15 17:00:00 CDTNotes: For IV push isaiah nstitute with 10 ml 0.9% sodium chloride and push over 2 minutes. (Same as: Protonix) No Longer Active 07/09/2015 [facility] tramadol hydrochloride 50 MG Oral Tablet 50 mg, 1 tab, Route: PO, Drug form: TAB, Q6H, Dosing Weight 135, kg, PRN Pain Score 4-6, Start date: 07/09/15 2:55:00 CDT, Duration: 30 day, Stop date: 08/08/15 2:54:00 CDTNotes: Not to exceed 400mg/day. (Same As: Ultram) No Longer Active 07/09/2015 [facility] Gas-X Ultra Softgels 160 mg, 2 tab, Route: PO, Drug form: CHEWTAB, Q4H, Dosing Weight 135, kg, PRN Gas, Start date: 07/09/15 2:55:00 CDT, Duration: 30 day, Stop date: 08/08/15 2:54:00 CDTNotes: (Same as: Mylicon) No Longer Active 07/09/2015 [facility] Sodium Chloride 0.154 MEQ/ML Injectable Solution 1,000 mL, Rate: 125 ml/hr, Infuse over: 8 hr, Route: IV, Dosing Weight 135 kg, Total Volume: 1,000, Start date: 07/09/15 2:55:00 CDT, Duration: 30 day, Stop date: 08/08/15 2:54:00 CDT No Longer Active 07/09/2015 [facility] GI cocktail 30 ml, Route: PO, Drug Form: SUSP, Dosing Weight 135, kg, Q4H, PRN Indigestion, NOW, Start date: 07/09/15 2:55:00 CDT, Duration: 30 day, Stop date: 08/08/15 2:54:00 CDT, DYSPEPSIANotes: G.I. Cocktail=antacid with simethicone 22.5 mL - lidocaine viscous 7.5 mL No Longer Active 07/09/2015 [facility] Hydralazine 10 mg, 0.5 mL, Route: IVP, Drug form: INJ, Q6H, Dosing Weight 135, kg, PRN Elevated BP, Start date: 07/09/15 2:55:00 CDT, Duration: 30 day, Stop date: 08/08/15 2:54:00 CDT, SBP>/=160 OR DBP>/=90Notes: (Same as: Apresoline) Push over 5 minutes No Longer Active 07/09/2015 [facility] Docusate Sodium 100 MG Oral Capsule [Colace] 100 mg, 1 cap, Route: PO, Drug form: CAP, BID, Dosing Weight 135, kg, PRN Constipation, Start date: 07/09/15 2:55:00 CDT, Duration: 30 day, Stop date: 08/08/15 2:54:00 CDTNotes: (Same as: Colace) (Do Not Crush) No Longer Active 07/09/2015 [facility] Morphine 2 mg, 1 mL, Route: IVP, Drug form: INJ, Q4H, Dosing Weight 135, kg, PRN Pain Score 4-6, Start date: 07/09/15 2:55:00 CDT, Duration: 3 day, Stop date: 07/12/15 2:54:00 CDTNotes: (Same as:MORPhine Sulfate) No Longer Active 07/09/2015 [facility] Ondansetron 4 mg, 2 mL, Route: IVP, Drug form: INJ, Q4H, Dosing Weight 135, kg, PRN Nausea & Vomiting, Start date: 07/09/15 2:55:00 CDT, Duration: 30 day, Stop date: 08/08/15 2:54:00 CDTNotes: (Same as: Zofran) MEDICATION WASTE Product Size: 4 mg Product Wasted: ___ mg No Longer Active 07/09/2015 [facility] Acetaminophen 650 mg, 2 tab, Route: PO, Drug form: TAB, Q4H, Dosing Weight 135, kg, PRN Pain 1-3/Temp > 100.4 F, Start date: 07/09/15 2:55:00 CDT, Duration: 30 day, Stop date: 08/08/15 2:54:00 CDTNotes: Do not exc eed 4 gm/day. (Same as: Tylenol) No Longer Active 07/09/2015 [facility] Zosyn 3.375 gm, Route: IVPB, Drug form: PDR/INJ, ONCE, Dosing Weight 135, kg, Priority: STAT, Start date: 07/09/15 2:41:00 CDT, Stop date: 07/09/15 2:41:00 CDT Inactive 07/09/2015 [facility] Saline Flush 0.9% 10 mL, Route: IVP, Drug Form: INJ, Dosing Weight 135, kg, PRN, PRN Line Flush, Start date: 07/08/15 21:50:00 CDT, Duration: 30 day, Stop date: 08/07/15 21:49:00 CDTNotes: (Same as: BD Posiflush) No Longer Active 07/09/2015 [facility] Iohexol 50 mL, Route: PO, Drug Form: SOLN, Dosing Weight 135, kg, ONCE, Start date: 07/08/15 21:50:00 CDT, Stop date: 07/08/15 21:50:00 CDTNotes: (Same as:Omnipaque 240) 12,000mg/50ml WASTE: F/P - Black; E - Municipal Trash Bin No Longer Active 07/09/2015 [facility] Azithromycin 250 MG Oral Tablet azithromycin 250 mg tablet TAKE 2 TABLETS (500 MG) BY ORAL ROUTE ONCE DAILY FOR 1 DAY THEN 1 TABLET (250 MG) BY ORAL ROUTE ONCE DAILY FOR 4 DAYS Active [facility] Furosemide 40 MG Oral Tablet furosemide 40 mg tablet TAKE 1 TABLET BY MOUTH EVERY DAY Active [facility] Ibuprofen 800 MG Oral Tablet ibuprofen 800 mg tablet Active [facility] Albuterol 0.833 MG/ML / Ipratropium [place] 0.167 MG/ML Inhalant Solution ipratropium-albuterol 0.5 mg-3 mg(2.5 mg base)/3 mL nebulization soln Active [facility] Losartan Potassium 100 MG Oral Tablet losartan 100 mg tablet Active [facility] Methocarbamol 750 MG Oral Tablet methocarbamol 750 mg tablet Active [facility] 24 HR metoprolol succinate 50 MG Extended Release Oral Tablet metoprolol succinate ER 50 mg tablet,extended release 24 hr TAKE 1 TABLET BY MOUTH EVERY DAY Active [facility] Omeprazole 20 MG Delayed Release Oral Capsule omeprazole 20 mg capsule,delayed release TAKE 1 CAPSULE BY MOUTH EVERY DAY Active [facility] Microencapsulated Potassium Chloride 20 MEQ Extended Release Oral Tablet potassium chloride ER 20 mEq tablet,extended release(part/cryst) Active [facility] Prednisone 20 MG Oral Tablet prednisone 20 mg tablet Take 2 tablets every day by oral route in the morning for 10 days. Active [facility] 200 ACTUAT Albuterol 0.09 MG/ACTUAT Metered Dose Inhaler [ProAir] ProAir HFA 90 mcg/actuation aerosol inhaler Inhale 2 puffs every 4 hours by inhalation route. Active [facility] Budesonide 0.16 MG/ACTUAT / formoterol fumarate 0.0045 MG/ACTUAT Metered Dose Inhaler Symbicort 160 mcg-4.5 mcg/actuation HFA aerosol inhaler Active [facility] Allergies, Adverse Reactions, Alerts Substance Category Reaction Severity Reaction type Status Date Reported Comments Source Iodinated Contrast- Oral and Iv Dye Allergy to substance 09/19/[address] [facility] iodinated radiocontrast dyes Assertion Drug allergy Active [facility] Immunizations Immunization Date Given Site Status Last Updated Comments Source influenza, high dose seasonal 12/20/2016 completed [facility] pneumococcal conjugate PCV 13 05/14/[address] [facility] influenza, injectable, quadrivalent 12/06/[address] [facility] zoster 08/23/[address] [facility] Results Order Name Results Value Reference Range Date Interpretation Comments Source Pelvis w/wo contrast MRI Pelvis w/wo contrast MRI INDICATION: - R70.0 Elevated erythrocyte sedimentation rate. COMPARISON: Abdomen/pelvis CT without contrast dated 07/08/2015 TECHNIQUE: Multiplanar multisequential MR images of the abdomen and pelvis were obtained with and without intravenous contrast administration. Contrast: 20 mL Dotarem FINDINGS: Lines and tubes: None. Lower thorax: Unremarkable. Liver and biliary tree: The liver is mildly steatotic and contains a 2 cm cyst. No biliary dilatation is seen. Gallbladder: A large intraluminal filling defect was previously characterized as a combination of sludge and stones. The gallbladder is otherwise unremarkable. Pancreas: There is some heterogeneity of the pancreatic tail which is not well evaluated. The pancreas is otherwise unremarkable. Spleen: Unremarkable Adrenals: There is a stable 1.5 cm right adrenal adenoma. The left adrenal gland is unremarkable. Kidneys and ureters: Unremarkable. No hydronephrosis. Bladder: Unremarkable Reproductive organs: The uterus is anteverted and measures approximately 8 x 12 x 8 cm. Within the anterior uterine body, is a well-circumscribed 6 x 6 x 6 cm mass. The mass is cystic, containing hemorrhagic or proteinaceous fluid and has significant mural nodularity which enhances. It appears separate from the endometrium. The endometrium is displaced posteriorly into the left and is somewhat heterogeneous as well. The ovaries are unremarkable. Gastrointestinal tract: Diverticulosis. Otherwise grossly unremarkable. Peritoneum and retroperitoneum: No ascites or free air. Lymph nodes: There are nonspecific pelvic sidewall lymph nodes, the largest of which measures up to 1.3 cm. Vasculature: Unremarkable. Bones: No acute abnormality. Soft tissues: Unremarkable. IMPRESSION: 1. 6 x 6 x 6 cm anterior uterine body mass, compatible with malignancy until proven otherwise. 2. Indeterminate pelvic sidewall lymph nodes, especially on the left measuring up to 1.3 cm in diameter. 3. Limited evaluation of the abdomen due to significant patient motion artifact, but without definite evidence of metastatic disease. 4. Heterogeneity of the pancreatic tail is not well evaluated and may be artifactual. 5. Hepatic steatosis. 6. Small hepatic cyst. 7. Gallbladder sludge and stones. 8. Right adrenal adenoma. 9. Diverticulosis. Further evaluation with contrast-enhanced CT is recommended to complete the staging process. 03/26/2018 - - Read by: Saima Lima Dictated Date/time: 03/26/18 11:22 Electronically Signed by: Saima Lima 03/26/18 11:37 FINAL REPORT [facility] Abdomen w/wo contrast MRI Abdomen w/wo contrast MRI INDICATION: - R70.0 Elevated erythrocyte sedimentation rate. COMPARISON: Abdomen/pelvis CT without contrast dated 07/08/2015 TECHNIQUE: Multiplanar multisequential MR images of the abdomen and pelvis were obtained with and without intravenous contrast administration. Contrast: 20 mL Dotarem FINDINGS: Lines and tubes: None. Lower thorax: Unremarkable. Liver and biliary tree: The liver is mildly steatotic and contains a 2 cm cyst. No biliary dilatation is seen. Gallbladder: A large intraluminal filling defect was previously characterized as a combination of sludge and stones. The gallbladder is otherwise unremarkable. Pancreas: There is some heterogeneity of the pancreatic tail which is not well evaluated. The pancreas is otherwise unremarkable. Spleen: Unremarkable Adrenals: There is a stable 1.5 cm right adrenal adenoma. The left adrenal gland is unremarkable. Kidneys and ureters: Unremarkable. No hydronephrosis. Bladder: Unremarkable Reproductive organs: The uterus is anteverted and measures approximately 8 x 12 x 8 cm. Within the anterior uterine body, is a well-circumscribed 6 x 6 x 6 cm mass. The mass is cystic, containing hemorrhagic or proteinaceous fluid and has significant mural nodularity which enhances. It appears separate from the endometrium. The endometrium is displaced posteriorly into the left and is somewhat heterogeneous as well. The ovaries are unremarkable. Gastrointestinal tract: Diverticulosis. Otherwise grossly unremarkable. Peritoneum and retroperitoneum: No ascites or free air. Lymph nodes: There are nonspecific pelvic sidewall lymph nodes, the largest of which measures up to 1.3 cm. Vasculature: Unremarkable. Bones: No acute abnormality. Soft tissues: Unremarkable. IMPRESSION: 1. 6 x 6 x 6 cm anterior uterine body mass, compatible with malignancy until proven otherwise. 2. Indeterminate pelvic sidewall lymph nodes, especially on the left measuring up to 1.3 cm in diameter. 3. Limited evaluation of the abdomen due to significant patient motion artifact, but without definite evidence of metastatic disease. 4. Heterogeneity of the pancreatic tail is not well evaluated and may be artifactual. 5. Hepatic steatosis. 6. Small hepatic cyst. 7. Gallbladder sludge and stones. 8. Right adrenal adenoma. 9. Diverticulosis. Further evaluation with contrast-enhanced CT is recommended to complete the staging process. 03/26/2018 - - Read by: Saima Lima Dictated Date/time: 03/26/18 11:22 Electronically Signed by: Saima Lima 03/26/18 11:37 FINAL REPORT [facility] CHEM PANEL Glucose Lvl 105 mg/dL 70 - 99 02/18/2017 [facility] CHEM PANEL CO2 32 meq/L 24 - 32 02/18/2017 [facility] CHEM PANEL eGFR 81 mL/min/1.73m2 02/18/2017 Result Comment: The eGFR is calculated using the [...] from the National Kidney Disease Education Program (NKDEP) which additionally recommends that when the eGFR is used in patients with extremes of body mass index for purposes of drug dosing, the eGFR should be multiplied by the estimated BMI. [facility] CHEM PANEL Calcium Lvl 8.6 mg/dL 8.5 - 10.5 02/18/2017 [facility] CHEM PANEL Chloride Lvl 104 meq/L 95 - 109 02/18/2017 [facility] CHEM PANEL Potassium Lvl 3.6 meq/L 3.5 - 5.1 02/18/2017 [facility] CHEM PANEL Sodium Lvl 142 meq/L 135 - 145 02/18/2017 [facility] CHEM PANEL Creatinine Lvl 0.76 mg/dL 0.50 - 1.40 02/18/2017 [facility] CHEM PANEL BUN 24 mg/dL 7 - 22 02/18/2017 [facility] CHEM PANEL AGAP 9.6 meq/L 10.0 - 20.0 02/18/2017 [facility] HEMATOLOGY MPV 11.2 fL 7.4 - 10.4 02/18/2017 [facility] HEMATOLOGY Hct 37.6 % 36.0 - 48.0 02/18/2017 [facility] HEMATOLOGY Hgb 12.7 g/dL 12.0 - 16.0 02/18/2017 [facility] HEMATOLOGY WBC 7.5 K/CMM 3.7 - 10.4 02/18/2017 [facility] HEMATOLOGY RBC 4.21 M/CMM 4.20 - 5.40 02/18/2017 [facility] HEMATOLOGY MCHC 33.8 g/dL 32.0 - 36.0 02/18/2017 [facility] HEMATOLOGY MCH 30.2 pg 27.0 - 31.0 02/18/2017 [facility] HEMATOLOGY Platelet 161 K/CMM 133 - 450 02/18/2017 [facility] HEMATOLOGY RDW 13.6 % 11.5 - 14.5 02/18/2017 [facility] HEMATOLOGY MCV 89.3 fL 80.0 - 98.0 02/18/2017 [facility] HEMATOLOGY Segs-Bands # 5.0 K/CMM 1.5 - 8.1 02/18/2017 [facility] HEMATOLOGY Lymphocytes # 1.6 K/CMM 1.0 - 5.5 02/18/2017 [facility] HEMATOLOGY Monocytes # 0.6 K/CMM 0.0 - 0.8 02/18/2017 [facility] HEMATOLOGY Eosinophils # 0.2 K/CMM 0.0 - 0.5 02/18/2017 [facility] HEMATOLOGY Basophils 0.6 % 0.0 - 1.0 02/18/2017 [facility] HEMATOLOGY Lymphocytes 21.5 % 20.0 - 40.0 02/18/2017 [facility] HEMATOLOGY Eosinophils 2.3 % 0.0 - 4.0 02/18/2017 [facility] HEMATOLOGY Monocytes 8.5 % 2.0 - 12.0 02/18/2017 [facility] HEMATOLOGY Segs 67.1 % 45.0 - 75.0 02/18/2017 [facility] CARDIAC ENZYMES Troponin-T null 0.000 - 0.100 02/18/2017 [facility] CARDIAC ENZYMES Troponin-I null 0.00 - 0.40 02/18/2017 [facility] CARDIAC ENZYMES Total CK 43 unit/L 12 - 191 02/18/2017 [facility] CARDIAC ENZYMES Troponin-T null 0.000 - 0.100 02/17/2017 [facility] CARDIAC ENZYMES Troponin-I null 0.00 - 0.40 02/17/2017 [facility] CARDIAC ENZYMES Total CK 43 unit/L 12 - 191 02/17/2017 [facility] LIPIDS LDL (Calculated) 102 mg/dL <=99 mg/dL 02/17/2017 [facility] LIPIDS CHD Risk 3.53 3.90 - 5.80 02/17/2017 [facility] LIPIDS Chol 180 mg/dL <=199 mg/dL 02/17/2017 [facility] LIPIDS HDL 51 mg/dL >=61 mg/dL 02/17/2017 [facility] LIPIDS Trig 133 mg/dL <=149 mg/dL 02/17/2017 [facility] LIPIDS VLDL 27 02/17/2017 [facility] CARDIAC ENZYMES proBNP 251 pg/mL 0 - 125 02/17/2017 [facility] CARDIAC ENZYMES Troponin-I null 0.00 - 0.40 02/17/2017 [facility] CARDIAC ENZYMES Total CK 52 unit/L 12 - 191 02/17/2017 [facility] CHEM PANEL eGFR 71 mL/min/1.73m2 02/17/2017 Result Comment: The eGFR is calculated using the [...] from the National Kidney Disease Education Program (NKDEP) which additionally recommends that when the eGFR is used in patients with extremes of body mass index for purposes of drug dosing, the eGFR should be multiplied by the estimated BMI. [facility] CHEM PANEL Sodium Lvl 139 meq/L 135 - 145 02/17/2017 [facility] CHEM PANEL Potassium Lvl 3.7 meq/L 3.5 - 5.1 02/17/2017 [facility] CHEM PANEL CO2 33 meq/L 24 - 32 02/17/2017 [facility] CHEM PANEL Chloride Lvl 100 meq/L 95 - 109 02/17/2017 [facility] CHEM PANEL Calcium Lvl 9.1 mg/dL 8.5 - 10.5 02/17/2017 [facility] CHEM PANEL Glucose Lvl 99 mg/dL 70 - 99 02/17/2017 [facility] CHEM PANEL BUN 23 mg/dL 7 - 22 02/17/2017 [facility] CHEM PANEL Creatinine Lvl 0.85 mg/dL 0.50 - 1.40 02/17/2017 [facility] CHEM PANEL AGAP 9.7 meq/L 10.0 - 20.0 02/17/2017 [facility] RBC 4.66 M/CMM 4.20 - 5.40 02/17/2017 [facility] HEMATOLOGY Hgb 13.6 g/dL 12.0 - 16.0 02/17/2017 [facility] HEMATOLOGY Hct 41.7 % 36.0 - 48.0 02/17/2017 [facility] MCV 89.4 fL 80.0 - 98.0 02/17/2017 [facility] MCH 29.3 pg 27.0 - 31.0 02/17/2017 [facility] MCHC 32.7 g/dL 32.0 - 36.0 02/17/2017 [facility] WBC 7.2 K/CMM 3.7 - 10.4 02/17/2017 [facility] RDW 13.2 % 11.5 - 14.5 02/17/2017 [facility] HEMATOLOGY Platelet 200 K/CMM 133 - 450 02/17/2017 [facility] HEMATOLOGY MPV 12.1 fL 7.4 - 10.4 02/17/2017 [facility] HEMATOLOGY Segs-Bands # 5.3 K/CMM 1.5 - 8.1 02/17/2017 [facility] HEMATOLOGY Eosinophils # 0.2 K/CMM 0.0 - 0.5 02/17/2017 [facility] HEMATOLOGY Monocytes 5.4 % 2.0 - 12.0 02/17/2017 [facility] HEMATOLOGY Lymphocytes # 1.3 K/CMM 1.0 - 5.5 02/17/2017 [facility] HEMATOLOGY Basophils 0.3 % 0.0 - 1.0 02/17/2017 [facility] HEMATOLOGY Monocytes # 0.4 K/CMM 0.0 - 0.8 02/17/2017 [facility] HEMATOLOGY Eosinophils 2.1 % 0.0 - 4.0 02/17/2017 [facility] HEMATOLOGY Lymphocytes 18.2 % 20.0 - 40.0 02/17/2017 [facility] HEMATOLOGY Segs 74.0 % 45.0 - 75.0 02/17/2017 [facility] Chest 2 views DX Chest 2 views DX Clinical Indication: Chest pain Comparison: None FINDINGS: The PA and lateral chest radiographs shows normal lung volumes without interstitial or airspace opacities, pleural effusions or pneumothorax. The heart size and pulmonary vasculature are normal. The trachea is midline. There are no clinically significant osseous abnormalities noted. IMPRESSION: No chest radiographic evidence of acute cardiopulmonary disease. SL: [id number] 02/17/2017 - - Read by: Masoud Javed MD Dictated Date/time: 02/17/17 10:21 Electronically Signed by: Masoud Javed MD 02/17/17 10:21 FINAL REPORT [facility] CBC W Auto Differential panel - Blood white blood cell count 8.3 thousand/uL 3.8 - 10.8 10/19/2016 CBC W Auto Differential panel - Blood red blood cell count 4.50 million/uL 3.80 - 5.10 10/19/2016 CBC W Auto Differential panel - Blood hemoglobin 13.4 g/dL 11.7 - 15.5 10/19/2016 CBC W Auto Differential panel - Blood hematocrit 40.6 % 35.0 - 45.0 10/19/2016 CBC W Auto Differential panel - Blood MCV 90.2 fL 80.0 - 100.0 10/19/2016 [facility] CBC W Auto Differential panel - Blood MCH 29.8 pg 27.0 - 33.0 10/19/2016 [facility] CBC W Auto Differential panel - Blood MCHC 33.1 g/dL 32.0 - 36.0 10/19/2016 CBC W Auto Differential panel - Blood RDW 14.2 % 11.0 - 15.0 10/19/2016 [facility] W Auto Differential panel - Blood platelet count 197 thousand/uL 140 - 400 10/19/2016 [facility] W Auto Differential panel - Blood MPV 11.5 fL 7.5 - 12.5 10/19/2016 [facility] W Auto Differential panel - Blood absolute neutrophils 5976 cells/uL 1500 - 7800 10/19/2016 CBC W Auto Differential panel - Blood absolute lymphocytes 1411 cells/uL 850 - 3900 10/19/2016 CBC W Auto Differential panel - Blood absolute monocytes 739 cells/uL 200 - 950 10/19/2016 CBC W Auto Differential panel - Blood absolute eosinophils 125 cells/uL 15 - 500 10/19/2016 CBC W Auto Differential panel - Blood absolute basophils 50 cells/uL 0 - 200 10/19/2016 CBC W Auto Differential panel - Blood neutrophils 72.0 % 10/19/2016 CBC W Auto Differential panel - Blood lymphocytes 17.0 % 10/19/2016 CBC W Auto Differential panel - Blood monocytes 8.9 % 10/19/2016 CBC W Auto Differential panel - Blood eosinophils 1.5 % 10/19/2016 CBC W Auto Differential panel - Blood basophils 0.6 % 10/19/2016 [facility] panel - Serum or Plasma glucose 90 mg/dL 65 - 99 10/19/2016 [facility] 1999 panel - Serum or Plasma urea nitrogen (BUN) 15 mg/dL 7 - 25 10/19/2016 [facility] 1999 panel - Serum or Plasma creatinine 0.73 mg/dL 0.50 - 0.99 10/19/2016 [facility] 1999 panel - Serum or Plasma eGFR non-afr. cameroonian 86 mL/min/1.73m2 > or=60 10/19/2016 [facility] 1999 panel - Serum or Plasma eGFR 99 mL/min/1.73m2 > or=60 10/19/2016 [facility] 1999 panel - Serum or Plasma BUN/creatinine ratio not applicable 6 - 10/19/[address] [facility] Comprehensive metabolic 1999 panel - Serum or Plasma sodium 140 mmol/L 135 - 146 10/19/2016 [facility] 1999 panel - Serum or Plasma potassium 3.8 mmol/L 3.5 - 5.3 10/19/2016 [facility] 1999 panel - Serum or Plasma chloride 101 mmol/L 98 - 110 10/19/2016 [facility] panel - Serum or Plasma carbon dioxide 31 mmol/L 20 - 31 10/19/2016 [facility] 1999 panel - Serum or Plasma calcium 9.2 mg/dL 8.6 - 10.4 10/19/2016 [facility] 1999 panel - Serum or Plasma protein, total 7.7 g/dL 6.1 - 8.1 10/19/2016 [facility] 1999 panel - Serum or Plasma albumin 3.8 g/dL 3.6 - 5.1 10/19/2016 [facility] 1999 panel - Serum or Plasma globulin 3.9 g/dL_(calc) 1.9 - 3.7 10/19/2016 [facility] Comprehensive metabolic 1999 panel - Serum or Plasma albumin/globulin ratio 1.0 (calc) 1.0 - 2.5 10/19/2016 [facility] 1999 panel - Serum or Plasma bilirubin, total 0.5 mg/dL 0.2 - 1.2 10/19/2016 [facility] 1999 panel - Serum or Plasma alkaline phosphatase 123 U/L 33 - 130 10/19/2016 [facility] 1999 panel - Serum or Plasma AST 13 U/L 10 - 35 10/19/2016 [facility] 1999 panel - Serum or Plasma ALT 11 U/L 6 - 29 10/19/2016 [facility] 1995 panel - Serum or Plasma cholesterol, total 179 mg/dL 125 - 200 10/19/2016 [facility] 1995 panel - Serum or Plasma HDL cholesterol 47 mg/dL > or=46 10/19/2016 [facility] 1995 panel - Serum or Plasma triglycerides 140 mg/dL <150 10/19/2016 [facility] 1995 panel - Serum or Plasma LDL-cholesterol 104 mg/dL_(calc) <130 10/19/2016 [facility] 1995 panel - Serum or Plasma chol/HDLC ratio 3.8 (calc) < or=5.0 10/19/2016 Lip[facility] 1995 panel - Serum or Plasma non HDL cholesterol 132 mg/dL_(calc) 10/19/2016 Thyrotropin [Units/volume] in Serum or Plasma TSH 1.40 mIU/L 0.40 - 4.50 10/19/2016 Thyroxine (T4) free [Mass/volume] in Serum or Plasma T4, free 1.2 NG/dL 0.8 - 1.8 10/19/2016 CBC W Auto Differential panel - Blood Leukocytes [#/volume] in Blood by Automated count 7.0 thousand/uL 3.8 - 10.8 05/15/2016 CBC W Auto Differential panel - Blood Erythrocytes [#/volume] in Blood by Automated count 4.22 million/uL 3.80 - 5.10 05/15/2016 CBC W Auto Differential panel - Blood Hemoglobin [Mass/volume] in Blood 12.4 g/dL 11.7 - 15.5 05/15/2016 CBC W Auto Differential panel - Blood Hematocrit [Volume Fraction] of Blood by Automated count 38.3 % 35.0 - 45.0 05/15/2016 CBC W Auto Differential panel - Blood Erythrocyte mean corpuscular volume [Entitic volume] by Automated count 90.8 fL 80.0 - 100.0 05/15/2016 CBC W Auto Differential panel - Blood Erythrocyte mean corpuscular hemoglobin [Entitic mass] by Automated count 29.4 pg 27.0 - 33.0 05/15/2016 CBC W Auto Differential panel - Blood Erythrocyte mean corpuscular hemoglobin concentration [Mass/volume] by Automated count 32.4 g/dL 32.0 - 36.0 05/15/2016 CBC W Auto Differential panel - Blood Erythrocyte distribution width [Ratio] by Automated count 14.4 % 11.0 - 15.0 05/15/2016 CBC W Auto Differential panel - Blood Platelets [#/volume] in Blood by Automated count 188 thousand/uL 140 - 400 05/15/2016 CBC W Auto Differential panel - Blood Platelet mean volume [Entitic volume] in Blood by Jaden 12.6 fL 7.5 - 12.5 05/15/2016 [facility] CBC W Auto Differential panel - Blood Neutrophils [#/volume] in Blood by Automated count 5089 cells/uL 1500 - 7800 05/15/2016 CBC W Auto Differential panel - Blood Lymphocytes [#/volume] in Blood by Automated count 1309 cells/uL 850 - 3900 05/15/2016 CBC W Auto Differential panel - Blood Monocytes [#/volume] in Blood by Automated count 434 cells/uL 200 - 950 05/15/2016 CBC W Auto Differential panel - Blood Eosinophils [#/volume] in Blood by Automated count 140 cells/uL 15 - 500 05/15/2016 CBC W Auto Differential panel - Blood Basophils [#/volume] in Blood by Automated count 28 cells/uL 0 - 200 05/15/2016 CBC W Auto Differential panel - Blood Neutrophils/100 leukocytes in Blood by Automated count 72.7 % 05/15/2016 CBC W Auto Differential panel - Blood Lymphocytes/100 leukocytes in Blood by Automated count 18.7 % 05/15/2016 CBC W Auto Differential panel - Blood Monocytes/100 leukocytes in Blood by Automated count 6.2 % 05/15/2016 CBC W Auto Differential panel - Blood Eosinophils/100 leukocytes in Blood by Automated count 2.0 % 05/15/2016 CBC W Auto Differential panel - Blood Basophils/100 leukocytes in Blood by Automated count 0.4 % 05/15/2016 [facility] 1999 panel - Serum or Plasma Glucose [Mass/volume] in Serum or Plasma 119 mg/dL 65 - 99 05/15/2016 [facility] Comprehensive metabolic 1999 panel - Serum or Plasma Urea nitrogen [Mass/volume] in Serum or Plasma 25 mg/dL 7 - 25 05/15/2016 [facility] 1999 panel - Serum or Plasma Creatinine [Mass/volume] in Serum or Plasma 0.81 mg/dL 0.50 - 0.99 05/15/2016 metabolic 1999 panel - Serum or Plasma Glomerular filtration rate/1.73 sq M.predicted by Creatinine-based formula (MDRD) 76 mL/min/1.73m2 > or=60 05/15/2016 metabolic 1999 panel - Serum or Plasma Glomerular filtration rate/1.73 sq M predicted among blacks by Creatinine-based formula (MDRD) 88 mL/min/1.73m2 > or=60 05/15/2016 metabolic 1999 panel - Serum or Plasma Urea nitrogen/Creatinine [Mass Ratio] in Serum or Plasma not applicable 6 - 05/15/[address] [facility] metabolic 1999 panel - Serum or Plasma Sodium [Moles/volume] in Serum or Plasma 139 mmol/L 135 - 146 05/15/2016 metabolic 1999 panel - Serum or Plasma Potassium [Moles/volume] in Serum or Plasma 4.5 mmol/L 3.5 - 5.3 05/15/2016 1999 panel - Serum or Plasma Chloride [Moles/volume] in Serum or Plasma 101 mmol/L 98 - 110 05/15/2016 metabolic 1999 panel - Serum or Plasma Carbon dioxide, total [Moles/volume] in Serum or Plasma 31 mmol/L 20 - 31 05/15/2016 1999 panel - Serum or Plasma Calcium [Mass/volume] in Serum or Plasma 8.6 mg/dL 8.6 - 10.4 05/15/2016 1999 panel - Serum or Plasma Protein [Mass/volume] in Serum or Plasma 7.1 g/dL 6.1 - 8.1 05/15/2016 metabolic 1999 panel - Serum or Plasma Albumin [Mass/volume] in Serum or Plasma 3.6 g/dL 3.6 - 5.1 05/15/2016 metabolic 1999 panel - Serum or Plasma Globulin [Mass/volume] in Serum by calculation 3.5 g/dL_(calc) 1.9 - 3.7 05/15/2016 metabolic 1999 panel - Serum or Plasma Albumin/Globulin [Mass Ratio] in Serum or Plasma 1.0 (calc) 1.0 - 2.5 05/15/2016 [facility] 1999 panel - Serum or Plasma Bilirubin.total [Mass/volume] in Serum or Plasma 0.5 mg/dL 0.2 - 1.2 05/15/2016 [facility] metabolic 1999 panel - Serum or Plasma Alkaline phosphatase [Enzymatic activity/volume] in Serum or Plasma 113 U/L 33 - 130 05/15/2016 [facility] metabolic 1999 panel - Serum or Plasma Aspartate aminotransferase [Enzymatic activity/volume] in Serum or Plasma 11 U/L 10 - 35 05/15/2016 [facility] metabolic 1999 panel - Serum or Plasma Alanine aminotransferase [Enzymatic activity/volume] in Serum or Plasma 10 U/L 6 - 29 05/15/2016 Hemoglobin A1c/Hemoglobin.total in Blood Hemoglobin A1c/Hemoglobin.total in Blood 5.8 %_of_total_HGB <5.7 05/15/2016 [facility] Lipid 1995 panel - Serum or Plasma Cholesterol [Mass/volume] in Serum or Plasma 170 mg/dL 125 - 200 05/15/2016 Lipid 1995 panel - Serum or Plasma Cholesterol in HDL [Mass/volume] in Serum or Plasma 48 mg/dL > or=46 05/15/2016 [facility] 1995 panel - Serum or Plasma Triglyceride [Mass/volume] in Serum or Plasma 80 mg/dL <150 05/15/2016 [facility] 1995 panel - Serum or Plasma Cholesterol in LDL [Mass/volume] in Serum or Plasma by calculation 106 mg/dL_(calc) <130 05/15/2016 [facility] 1995 panel - Serum or Plasma Cholesterol.total/Cholesterol.in HDL [Mass ratio] in Serum or Plasma 3.5 (calc) < or=5.0 05/15/2016 [facility] 1995 panel - Serum or Plasma Cholesterol non HDL [Mass/volume] in Serum or Plasma 122 mg/dL_(calc) 05/15/2016 CHEM PANEL Magnesium Lvl 1.9 mg/dL 1.8 - 2.4 07/11/2015 [facility] CHEM PANEL Phosphorus 1.7 mg/dL 2.5 - 4.5 07/11/2015 [facility] ELECTROLYTES AGAP 10.5 meq/L 10.0 - 20.0 07/11/2015 [facility] ELECTROLYTES eGFR 88 mL/min/1.73m2 07/11/2015 Result Comment: The eGFR is calculated using the [...] from the National Kidney Disease Education Program (NKDEP) which additionally recommends that when the eGFR is used in patients with extremes of body mass index for purposes of drug dosing, the eGFR should be multiplied by the estimated BMI. [facility] ELECTROLYTES Potassium Lvl 3.5 meq/L 3.5 - 5.1 07/11/2015 [facility] ELECTROLYTES Sodium Lvl 142 meq/L 135 - 145 07/11/2015 [facility] ELECTROLYTES Creatinine Lvl 0.72 mg/dL 0.50 - 1.40 07/11/2015 [facility] ELECTROLYTES BUN 9 mg/dL 7 - 22 07/11/2015 [facility] ELECTROLYTES Glucose Lvl 105 mg/dL 70 - 99 07/11/2015 [facility] ELECTROLYTES CO2 25 meq/L 24 - 32 07/11/2015 [facility] ELECTROLYTES Chloride Lvl 110 meq/L 95 - 109 07/11/2015 [facility] ELECTROLYTES Calcium Lvl 7.9 mg/dL 8.5 - 10.5 07/11/2015 [facility] MPV 10.9 fL 7.4 - 10.4 07/11/2015 [facility] MCH 28.9 pg 27.0 - 31.0 07/11/2015 [facility] MCHC 32.4 g/dL 32.0 - 36.0 07/11/2015 [facility] MCV 89.2 fL 80.0 - 98.0 07/11/2015 [facility] RDW 13.7 % 11.5 - 14.5 07/11/2015 [facility] Platelet 147 K/CMM 133 - 450 07/11/2015 [facility] Hgb 10.6 g/dL 12.0 - 16.0 07/11/2015 [facility] Hct 32.9 % 36.0 - 48.0 07/11/2015 [facility] HEMATOLOGY WBC 11.1 K/CMM 3.7 - 10.4 07/11/2015 [facility] HEMATOLOGY RBC 3.68 M/CMM 4.20 - 5.40 07/11/2015 [facility] HEMATOLOGY Lymphocytes # 1.2 K/CMM 1.0 - 5.5 07/11/2015 [facility] Segs-Bands # 8.4 K/CMM 1.5 - 8.1 07/11/2015 [facility] HEMATOLOGY Basophils # 0.1 K/CMM 0.0 - 0.2 07/11/2015 [facility] HEMATOLOGY Monocytes # 1.3 K/CMM 0.0 - 0.8 07/11/2015 [facility] HEMATOLOGY Eosinophils # 0.1 K/CMM 0.0 - 0.5 07/11/2015 [facility] HEMATOLOGY Segs 75.6 % 45.0 - 75.0 07/11/2015 [facility] Lymphocytes 10.8 % 20.0 - 40.0 07/11/2015 [facility] Basophils 0.5 % 0.0 - 1.0 07/11/2015 [facility] HEMATOLOGY Monocytes 12.0 % 2.0 - 12.0 07/11/2015 [facility] Eosinophils 1.1 % 0.0 - 4.0 07/11/2015 [facility] Gallbladder scan HIDA wo meds NM Gallbladder scan HIDA wo meds NM EXAM:Nuclear Medicine Hepatobiliary Scan INDICATION: Abdominal pain, chronic; COMPARISON: 07/08/2015 CT abdomen and pelvis TECHNIQUE: Hepatobiliary scan is performed using 5 mCi of Tc-99m Choletec. FINDINGS: There is prompt hepatic uptake and excretion with progression of the radiotracer through a non dilated biliary tree and into small bowel. Gallbladder filling is first noted at 15 minutes past radiotracer injection. No CCK was administered. IMPRESSION: Normal filling of the gallbladder. No evidence for acute cholecystitis. SL: [id number] 07/10/2015 - - Read by: Farhan Mota MD Dictated Date/time: 07/10/15 14:48 Electronically Signed by: Farhan Mota MD 07/10/15 14:56 FINAL REPORT [facility] CHEM PANEL Procalcitonin Lvl 27.52 ng/mL 0.00 - 0.10 07/10/2015 Result Comment: Critical Result(s) called to OLEGARIO OJEDA at 07/10/2015 09:30 by ANASTACIO. Read back OK. [facility] CHEM PANEL Phosphorus 2.5 mg/dL 2.5 - 4.5 07/10/2015 [facility] CHEM PANEL Magnesium Lvl 2.0 mg/dL 1.8 - 2.4 07/10/2015 [facility] CHEM PANEL BUN 12 mg/dL 7 - 22 07/10/2015 [facility] CHEM PANEL Creatinine Lvl 0.88 mg/dL 0.50 - 1.40 07/10/2015 [facility] CHEM PANEL Glucose Lvl 121 mg/dL 70 - 99 07/10/2015 [facility] CHEM PANEL Sodium Lvl 139 meq/L 135 - 145 07/10/2015 [facility] CHEM PANEL AGAP 10.8 meq/L 10.0 - 20.0 07/10/2015 [facility] CHEM PANEL Chloride Lvl 103 meq/L 95 - 109 07/10/2015 [facility] CHEM PANEL CO2 28 meq/L 24 - 32 07/10/2015 [facility] CHEM PANEL Potassium Lvl 2.8 meq/L 3.5 - 5.1 07/10/2015 Result Comment: Critical Result(s) called to ECTOR RAND at 07/10/2015 06:57 by ANASTACIO. Read back OK. [facility] CHEM PANEL Calcium Lvl 8.1 mg/dL 8.5 - 10.5 07/10/2015 [facility] CHEM PANEL eGFR 69 mL/min/1.73m2 07/10/2015 Result Comment: The eGFR is calculated using the [...] from the National Kidney Disease Education Program (NKDEP) which additionally recommends that when the eGFR is used in patients with extremes of body mass index for purposes of drug dosing, the eGFR should be multiplied by the estimated BMI. [facility] HEMATOLOGY Platelet 154 K/CMM 133 - 450 07/10/2015 [facility] HEMATOLOGY MPV 11.3 fL 7.4 - 10.4 07/10/2015 [facility] HEMATOLOGY Hgb 11.2 g/dL 12.0 - 16.0 07/10/2015 [facility] HEMATOLOGY RBC 3.84 M/CMM 4.20 - 5.40 07/10/2015 [facility] HEMATOLOGY WBC 14.9 K/CMM 3.7 - 10.4 07/10/2015 [facility] HEMATOLOGY MCHC 32.8 g/dL 32.0 - 36.0 07/10/2015 [facility] HEMATOLOGY Hct 34.2 % 36.0 - 48.0 07/10/2015 [facility] MCV 88.9 fL 80.0 - 98.0 07/10/2015 [facility] MCH 29.2 pg 27.0 - 31.0 07/10/2015 [facility] HEMATOLOGY RDW 13.8 % 11.5 - 14.5 07/10/2015 [facility] HEMATOLOGY Segs 86.0 % 45.0 - 75.0 07/10/2015 [facility] HEMATOLOGY Lymphocytes 4.2 % 20.0 - 40.0 07/10/2015 [facility] HEMATOLOGY Monocytes 9.4 % 2.0 - 12.0 07/10/2015 [facility] HEMATOLOGY Lymphocytes # 0.6 K/CMM 1.0 - 5.5 07/10/2015 [facility] HEMATOLOGY Basophils 0.3 % 0.0 - 1.0 07/10/2015 [facility] HEMATOLOGY Eosinophils 0.1 % 0.0 - 4.0 07/10/2015 [facility] HEMATOLOGY Segs-Bands # 12.8 K/CMM 1.5 - 8.1 07/10/2015 [facility] Monocytes # 1.4 K/CMM 0.0 - 0.8 07/10/2015 [facility] CHEM PANEL Globulin 4.8 g/dL 2.0 - 4.0 07/09/2015 [facility] CHEM PANEL A/G Ratio 0.6 0.7 - 1.6 07/09/2015 [facility] CHEM PANEL AGAP 15.8 meq/L 10.0 - 20.0 07/09/2015 [facility] CHEM PANEL B/C Ratio 18 6 - 25 07/09/2015 [facility] CHEM PANEL eGFR 59 mL/min/1.73m2 07/09/2015 Result Comment: The eGFR is calculated using the [...] from the National Kidney Disease Education Program (NKDEP) which additionally recommends that when the eGFR is used in patients with extremes of body mass index for purposes of drug dosing, the eGFR should be multiplied by the estimated BMI. [facility] CHEM PANEL Total Protein 7.8 g/dL 6.4 - 8.4 07/09/2015 [facility] CHEM PANEL Albumin Lvl 3.0 g/dL 3.5 - 5.0 07/09/2015 [facility] CHEM PANEL ALT 21 unit/L 0 - 65 07/09/2015 [facility] CHEM PANEL AST 17 unit/L 0 - 37 07/09/2015 [facility] CHEM PANEL Alk Phos 101 unit/L 39 - 136 07/09/2015 [facility] CHEM PANEL Bili Total 0.9 mg/dL 0.2 - 1.3 07/09/2015 [facility] CHEM PANEL BUN 18 mg/dL 7 - 22 07/09/2015 [facility] CHEM PANEL Creatinine Lvl 1.00 mg/dL 0.50 - 1.40 07/09/2015 [facility] CHEM PANEL Sodium Lvl 139 meq/L 135 - 145 07/09/2015 [facility] CHEM PANEL Potassium Lvl 3.8 meq/L 3.5 - 5.1 07/09/2015 [facility] CHEM PANEL Chloride Lvl 102 meq/L 95 - 109 07/09/2015 [facility] CHEM PANEL Calcium Lvl 8.3 mg/dL 8.5 - 10.5 07/09/2015 [facility] CHEM PANEL CO2 25 meq/L 24 - 32 07/09/2015 [facility] CHEM PANEL Glucose Lvl 116 mg/dL 70 - 99 07/09/2015 [facility] CHEM PANEL Phosphorus 2.7 mg/dL 2.5 - 4.5 07/09/2015 [facility] CHEM PANEL Magnesium Lvl 1.9 mg/dL 1.8 - 2.4 07/09/2015 [facility] HEMATOLOGY Hgb 12.1 g/dL 12.0 - 16.0 07/09/2015 [facility] HEMATOLOGY Hct 36.1 % 36.0 - 48.0 07/09/2015 [facility] HEMATOLOGY MCV 88.3 fL 80.0 - 98.0 07/09/2015 [facility] HEMATOLOGY WBC 22.0 K/CMM 3.7 - 10.4 07/09/2015 [facility] HEMATOLOGY RBC 4.09 M/CMM 4.20 - 5.40 07/09/2015 [facility] HEMATOLOGY MPV 10.8 fL 7.4 - 10.4 07/09/2015 [facility] MCH 29.5 pg 27.0 - 31.0 07/09/2015 [facility] MCHC 33.4 g/dL 32.0 - 36.0 07/09/2015 [facility] HEMATOLOGY RDW 14.2 % 11.5 - 14.5 07/09/2015 [facility] HEMATOLOGY Platelet 176 K/CMM 133 - 450 07/09/2015 [facility] HEMATOLOGY Lymphocytes # 0.7 K/CMM 1.0 - 5.5 07/09/2015 [facility] HEMATOLOGY Segs-Bands # 20.4 K/CMM 1.5 - 8.1 07/09/2015 [facility] HEMATOLOGY Monocytes # 0.8 K/CMM 0.0 - 0.8 07/09/2015 [facility] HEMATOLOGY Basophils 0.4 % 0.0 - 1.0 07/09/2015 [facility] HEMATOLOGY Eosinophils 0.3 % 0.0 - 4.0 07/09/2015 [facility] HEMATOLOGY Basophils # 0.1 K/CMM 0.0 - 0.2 07/09/2015 [facility] HEMATOLOGY Eosinophils # 0.1 K/CMM 0.0 - 0.5 07/09/2015 [facility] HEMATOLOGY Monocytes 3.6 % 2.0 - 12.0 07/09/2015 [facility] HEMATOLOGY Segs 92.7 % 45.0 - 75.0 07/09/2015 [facility] HEMATOLOGY Lymphocytes 3.0 % 20.0 - 40.0 07/09/2015 [facility] URINE AND STOOL UA Sq Epi Few /LPF Few /LPF 07/09/2015 [facility] URINE AND STOOL UA WBC 6-10 /HPF None Seen /HPF 07/09/2015 [facility] URINE AND STOOL Micro? Performed (07/09/15 2:12 AM) 07/09/2015 [facility] URINE AND STOOL UA RBC 3-5 /HPF 0 - 2 07/09/2015 [facility] URINE AND STOOL UA Mucus Few /LPF None Seen /LPF 07/09/2015 [facility] URINE AND STOOL UA Bacteria Moderate /HPF None Seen /HPF 07/09/2015 [facility] URINE AND STOOL UA Blood Small *ABN* (07/09/15 2:12 AM) Negative 07/09/2015 [facility] URINE AND STOOL UA Glucose Negative (07/09/15 2:12 AM) Negative 07/09/2015 [facility] URINE AND STOOL UA Ketones Negative *NA* (07/09/15 2:12 AM) Negative 07/09/2015 [facility] URINE AND STOOL UA Urobilinogen 1.0 EU/dL 0.1 - 1.0 07/09/2015 [facility] URINE AND STOOL UA Nitrite Positive *ABN* (07/09/15 2:12 AM) Negative 07/09/2015 [facility] URINE AND STOOL UA Leuk Est Small *ABN* (07/09/15 2:12 AM) Negative 07/09/2015 [facility] URINE AND STOOL UA Color Yellow *NA* (07/09/15 2:12 AM) Yellow 07/09/2015 [facility] URINE AND STOOL UA Turbidity Slight Cloudy (07/09/15 2:12 AM) Clear 07/09/2015 [facility] URINE AND STOOL UA pH 5.5 5.0 - 8.0 07/09/2015 [facility] URINE AND STOOL UA Protein Negative (07/09/15 2:12 AM) Negative 07/09/2015 [facility] URINE AND STOOL UA Spec Grav 1.010 <=1.030 07/09/2015 [facility] URINE AND STOOL UA Bili Negative *NA* (07/09/15 2:12 AM) Negative 07/09/2015 [facility] CARDIAC ENZYMES CK MB Index null 0.0 - 2.5 07/09/2015 [facility] CARDIAC ENZYMES Troponin-I null 0.00 - 0.40 07/09/2015 [facility] CARDIAC ENZYMES Total CK 47 unit/L 12 - 191 07/09/2015 [facility] CARDIAC ENZYMES CK MB null 0.5 - 3.6 07/09/2015 [facility] CHEM PANEL B/C Ratio 17 6 - 25 07/09/2015 [facility] CHEM PANEL AST 13 unit/L 0 - 37 07/09/2015 [facility] CHEM PANEL Total Protein 8.0 g/dL 6.4 - 8.4 07/09/2015 [facility] CHEM PANEL A/G Ratio 0.7 0.7 - 1.6 07/09/2015 [facility] CHEM PANEL Globulin 4.7 g/dL 2.0 - 4.0 07/09/2015 [facility] CHEM PANEL Bili Total 0.9 mg/dL 0.2 - 1.3 07/09/2015 [facility] CHEM PANEL ALT 23 unit/L 0 - 65 07/09/2015 [facility] CHEM PANEL Albumin Lvl 3.3 g/dL 3.5 - 5.0 07/09/2015 [facility] CHEM PANEL Alk Phos 112 unit/L 39 - 136 07/09/2015 [facility] CHEM PANEL Lipase Lvl 66 unit/L 73 - 393 07/09/2015 [facility] ENDOCRINOLOGY S Preg Negative *NA* (07/08/15 11:29 PM) Negative 07/09/2015 [facility] HEMATOLOGY Basophils # 0.2 K/CMM 0.0 - 0.2 07/09/2015 [facility] Abdomen complete US Abdomen complete US Study: Abdomen complete US 07/08/2015 11:17 PM CDT Ordering Physician: Jeremy Sifuentes MD Clinical Indication: Acute abdominal pain; GB mass and adrenal mass on CT. Comparison: Comparison is made to CT scans of the abdomen and pelvis dated 07/08/2015. TECHNIQUE: Grayscale and limited color sonographic evaluation of the abdomen was performed with standard technique. The examination is limited due to patient body habitus. FINDINGS: The liver is normal in size, measuring 13.9 cm. [id number] steatosis of the liver is present. A rounded, well-circumscribed echo lucency with through transmission is present in the right lobe of the liver measuring 2.1 x 1.6 x 2.1 cm. This likely represents a cyst. There is no evidence for solid hepatic mass. No biliary ductal dilatation is identified. The common bile duct measures 0.5 cm. Flow within the main portal vein is hepatopedal. The main portal vein measures 0.8 cm. The gallbladder lumen is distended, measuring approximately 11 cm in length. Shadowing, echogenic stones and sludge are present within the gallbladder lumen. There is no evidence for gallbladder wall thickening or pericholecystic fluid. No soft tissue mass is visualized in the gallbladder. The pancreas is obscured due to bowel gas. The spleen is normal in size and echogenicity, measuring 9.0 cm. Kidneys are normal in size, measuring 11.6 x 6.1 x 6.0 cm on the right and 9.1 x 6.0 x 5.7 cm on the left. Evaluation of the left kidney is markedly limited. There is no evidence for renal mass, hydronephrosis or perinephric fluid collection. The IVC is patent. The abdominal aorta is normal in appearance. There is no evidence for abdominal ascites. IMPRESSION: The examination is severely limited due to patient body habitus. The gallbladder lumen is distended, measuring 11 cm in length. Shadowing, echogenic stones and sludge layers dependently within the gallbladder. There is no evidence for gallbladder mass. No wall thickening, pericholecystic fluid or biliary ductal dilatation is seen. A 2 cm cyst is present in the right lobe of the liver. The pancreas, aorta, IVC and left kidney are poorly assessed. SL: [id number] 07/08/2015 - - Read by: Stephanie Valentin MD Dictated Date/time: 07/09/15 01:04 Electronically Signed by: Stephanie Valentin MD 07/09/15 01:11 FINAL REPORT [facility] Abdomen/Pelvis wo IV contrast CT Abdomen/Pelvis wo IV contrast CT Study: Abdomen/Pelvis wo IV contrast CT 07/08/2015 9:50 PM CDT Ordering Physician: Shania Cordova Clinical Indication: Abdominal pain, acute. 65-year-old with left-sided abdominal pain and chills for 2 days. Past medical history is significant for incarcerated umbilical hernia. Comparison: None TECHNIQUE: Noncontrasted helical imaging is performed from the diaphragm to the symphysis pubis. Multiplanar reformations are available for review. CT Radiation Dose: AYM=150 mGy-cm FINDINGS: Moderate right middle lobe atelectasis is present. Left lung base is clear. The heart size is normal. Moderate calcification of the upper abdominal aorta is present. Calcium and foraminal stenoses are present at the origins of these, superior mesenteric and bilateral renal arteries. Additional vascular imaging may be helpful. The gallbladder is distended, measuring 10 cm in length. There appears to be an abnormal soft tissue density located at the neck of the gallbladder lumen measuring 4.2 cm in length by 3.1 cm AP by 2.4 cm CC, and [address] density. The appearance is concerning for either tumefactive sludge or soft tissue mass. Gallbladder ultrasound examination is recommended. The liver is normal in size and overall density. A few calcified granulomata are noted within the liver. There is a 1.8 cm round low-attenuation in the right lobe of the liver measuring approximately [address] density. This likely represents a mildly complex cyst, and can also be evaluated on on ultrasound examination. No definite solid hepatic mass is visualized. There is no evidence for intra or extrahepatic biliary ductal dilatation. The pancreas, spleen and left adrenal are unremarkable. An oval, well-circumscribed right adrenal mass is present with [address] density, indeterminate for adenoma. It measures 2.0 cm AP by 1.4 cm TR by 1.6 cm CC. The kidneys are normal in size and density. There is no evidence for radiopaque renal calculus, hydronephrosis or hydroureter. The distal esophagus, stomach and small bowel are normal in appearance. The appendix is normal, with no evidence for acute appendicitis. Mild sigmoid diverticulosis is present, with no evidence for diverticulitis. There is no abdominal or pelvic adenopathy. There is no free fluid within the abdomen or pelvis. The uterus, adnexal regions and urinary bladder are unremarkable. The inguinal regions are unremarkable. There is a moderate fat-containing inguinal hernia. The neck of the hernia measures approximately 6 cm TR by 5 cm CC. There is no evidence for extension of bowel through the neck of the hernia. No lytic or blastic osseous lesions are seen. IMPRESSION: The gallbladder lumen is distended, measuring 10 cm in length. There is a soft tissue mass like density at the neck of the gallbladder measuring 4.2 x 3.0 x 2.4 cm and [address] density. The appearance suggests either tumefactive sludge or a true soft tissue tumor. Gallbladder ultrasound examination is recommended. A right adrenal nodule measures 2.0 x 1.4 x 1.6 cm and [address] density. The appearance is indeterminate for adenoma. Additional imaging is recommended. There is a 1.8 cm rounded low-attenuation the right lobe of the liver, likely representing a mildly complex cyst. Ultrasound is suggested. Calcified hepatic granulomas are seen. A moderate fat-containing inguinal hernia measures 5 or 6 cm in diameter. There is mild sigmoid diverticulosis, with no evidence for diverticulitis. There is moderate atelectasis in the medial segment of the right middle lobe. SL: [id number] 07/08/2015 - - Read by: Stephanie Valentin MD Dictated Date/time: 07/08/15 22:33 Electronically Signed by: Stephanie Valentin MD 07/08/15 22:48 FINAL REPORT [facility] Vital Signs Vital Sign Value Date Comments Source Diastolic (mm Hg) 77 06/17/2017 [facility] Height 61 06/17/2017 [facility] Systolic (mm Hg) 170 06/17/2017 [facility] Weight 290 06/17/2017 [facility] Diastolic (mm Hg) 62 02/19/2017 [facility] Height 61 02/19/2017 [facility] Systolic (mm Hg) 170 02/19/2017 [facility] Weight 296 02/19/2017 [facility] Temperature Oral (F) 96.5 F 02/18/2017 [facility] Systolic (mm Hg) 128 02/18/2017 [facility] Diastolic (mm Hg) 63 02/18/[facility] Systolic (mm Hg) 121 02/18/2017 [facility] Diastolic (mm Hg) 56 02/18/2017 [facility] Respitory Rate 18 02/18/2017 [facility] Heart Rate 53 02/18/2017 [facility] Temperature Oral (F) 97.7 F 02/18/2017 [facility] Respitory Rate 18 02/18/2017 [facility] Systolic (mm Hg) 118 02/18/2017 [facility] Diastolic (mm Hg) 47 02/18/2017 [facility] Heart Rate 56 02/18/2017 [facility] Temperature Oral (F) 97.8 F 02/18/2017 [facility] Respitory Rate 18 02/18/2017 [facility] Heart Rate 62 02/18/2017 [facility] Weight 134 02/17/2017 [facility] Height 152.4 cm 02/17/2017 [facility] BMI Calculated 57.69 02/17/2017 [facility] Heart Rate 52 02/17/2017 [facility] Systolic (mm Hg) 150 02/17/2017 [facility] Diastolic (mm Hg) 68 02/17/2017 [facility] Respitory Rate 20 02/17/2017 [facility] Heart Rate 50 02/17/2017 [facility] Respitory Rate 20 02/17/2017 [facility] Systolic (mm Hg) 139 02/17/2017 [facility] Diastolic (mm Hg) 69 02/17/2017 [facility] Heart Rate 52 02/17/2017 [facility] Respitory Rate 20 02/17/2017 [facility] Systolic (mm Hg) 157 02/17/2017 [facility] Diastolic (mm Hg) 65 02/17/2017 [facility] Weight 133.636 02/17/2017 [facility] Height 152.4 cm 02/17/2017 [facility] BMI Calculated 57.54 02/17/2017 [facility] Diastolic (mm Hg) 63 12/28/2016 [facility] Height 61 12/28/2016 [facility] Systolic (mm Hg) 140 12/28/2016 [facility] Weight 297 12/28/2016 [facility] Diastolic (mm Hg) 61 12/20/2016 [facility] Height 61 12/20/2016 [facility] Systolic (mm Hg) 147 12/20/2016 [facility] Weight 295.8 12/20/2016 [facility] Diastolic (mm Hg) 77 10/18/2016 [facility] Height 61 10/18/2016 [facility] Systolic (mm Hg) 158 10/18/2016 [facility] Weight 297 10/18/2016 [facility] Diastolic (mm Hg) 57 05/25/2016 [facility] Height 61 05/25/2016 [facility] Systolic (mm Hg) 152 05/25/2016 [facility] Weight 298.4 05/25/2016 [facility] Diastolic (mm Hg) 49 05/14/2016 [facility] Height 61 05/14/2016 [facility] Systolic (mm Hg) 139 05/14/2016 [facility] Weight 297.8 05/14/2016 [facility] Diastolic (mm Hg) 59 09/19/2015 [facility] Height 61 09/19/2015 [facility] Systolic (mm Hg) 153 09/19/2015 [facility] Weight 290 09/19/2015 [facility] Height 61 09/14/2015 [facility] Diastolic (mm Hg) 90 09/14/2015 [facility] Systolic (mm Hg) 149 09/14/2015 [facility] Weight 296 09/14/2015 [facility] Diastolic (mm Hg) 78 07/19/2015 [facility] Height 61 07/19/2015 [facility] Systolic (mm Hg) 140 07/19/2015 [facility] Weight 296.2 07/19/2015 [facility] Systolic (mm Hg) 136 07/11/2015 [facility] Diastolic (mm Hg) 104 07/11/2015 [facility] Respitory Rate 18 07/11/2015 [facility] Heart Rate 68 07/11/2015 [facility] Temperature Oral (F) 98.2 F 07/11/2015 [facility] Temperature Oral (F) 98.2 F 07/11/2015 [facility] Systolic (mm Hg) 124 07/11/2015 [facility] Diastolic (mm Hg) 68 07/11/2015 [facility] Heart Rate 67 07/11/2015 [facility] Respitory Rate 18 07/11/2015 [facility] Heart Rate 70 07/11/2015 [facility] Temperature Oral (F) 98.9 F 07/11/2015 [facility] Respitory Rate 17 07/11/2015 [facility] Systolic (mm Hg) 133 07/11/2015 [facility] Diastolic (mm Hg) 64 07/11/2015 [facility] Height 152.4 cm 07/09/2015 [facility] BMI Calculated 58.97 07/09/2015 [facility] Weight 136.96 07/09/2015 [facility] Height 152.4 cm 07/09/2015 [facility] BMI Calculated 58.13 07/09/2015 [facility] Weight 135 07/09/2015 [facility] Diastolic (mm Hg) 72 04/18/2015 [facility] Height 61 04/18/2015 [facility] Systolic (mm Hg) 136 04/18/2015 [facility] Weight 300 04/18/2015 [facility] Encounters Location Location Details Encounter Type Encounter Number Reason For Visit Attending Provider ADM Date DC Date Status Source [facility] Inpatient [id number] Hardy Barton II 07/09/2015 07/11/2015 [facility] ANTONIA ArellanoP: [address] [facility], [address] [address], Ph. [id number] Azeb Brewster 05/14/2016 [facility] AUGUSTINE Arellano: [address] [facility], [address] [address], Ph. [id number] Azeb Brewster 05/25/2016 [facility] ANTONIA ArellanoP: [address] [facility], [address] [address], Ph. [id number] Azeb Brewster 10/18/2016 [facility] Solis Vasquez MD: [address] [facility], [address], [place] [address], Ph. [id number] Solis Vasquez 12/20/2016 [facility] Eloy Malcolm MD: [address] [facility], [address], [place] [address], Ph. [id number] Eloy Malcolm 12/28/2016 [facility] Emergency [id number] Lasha Cazares III 02/17/2017 02/17/2017 [facility] Observation [id number] Lasha Cazares III 02/17/2017 02/18/2017 [facility] DAMIAN Benjamin: [address] [facility], [address] [address], Ph. [id number] Heather Troy 02/19/2017 [facility] Estephanie Hutchison: [address] [facility], [address] [address], Ph. [id number] Estephanie Hutchison 03/05/2017 [facility] DAMIAN Verma: [address] [facility], [address], [place] [address], Ph. [id number] Sherley Gilliland 06/17/[address] [facility] Procedures Procedure Code Date Perfomer Comments Source bone density 06/17/[address] [facility] X-RAY OF FOOT 3+ VIEW 41037 05/14/[address] [facility] MAMMO, screening, bilateral 05/14/[address] [facility] bone density, dual photon absorptiometry 05/14/[address] [id number] [id number] [facility]
--- OUTSIDE RECORDS SUMMARY | 2018-06-03 06:47 | XMS REPORT ---
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 Allergies, Adverse Reactions, Alerts Allergy Name Allergy Type Status Severity Reaction(s) Onset Date Inactive Date Treating Clinician Comments No Known Allergies DA Active U 2018-05-19 00:00:00 Medications This patient has no known medications. Results Test Description Test Time Test Comments Text Results Atomic Results Result Comments CHEST 2 VIEWS 2018-05-28 11:59:00 [place] [address] Patient Name: CAYLA TAVAREZ MR #: [id number] : 1950 Age/Sex: 68/F Req #: [id number] Adm Physician: Ordered by: DANIELLE PALOMINO MD Report #: [id number] Location: OR Room/Bed: Procedure: [id number] DX/CHEST 2 VIEWS Exam Date: 05/28/18 Exam Time: 1145 REPORT STATUS: Signed EXAM: CHEST 2 VIEWS DATE: 05/28/2018 10:50 AM INDICATION: Preop pelvic surgery COMPARISON: None FINDINGS: Lines and tubes: None Heart size normal. No focal pulmonary opacity, pleural effusion or pneumothorax. Upper abdomen unremarkable. No acute bony abnormality. There are degenerative changes in the thoracic spine. IMPRESSION: No evidence for acute disease. Signed by: Dr. Reese Diaz M.D. on 05/28/2018 12:02 PM Dictated By: REESE DIAZ MD 1202 Transcribed By: MAXINE on 05/28/18 1202 COPY TO: DANIELLE PALOMINO MD
--- OUTSIDE RECORDS SUMMARY | 2018-06-03 06:47 | XMS REPORT ---
Author Organization Unknown Address [address] [place] [address] Phone [phone] Care Team Providers Care Financial Risk Manager Name Role Phone PedroRobertaSolis R Unavailable Unavailable Allergies Code Code System Name Reaction Severity Status Onset Iodinated Contrast- Oral and Iv Dye Active 09/19/2015 Medications Name Status Start Date Stop Date acetaminophen 300 mg-codeine 15 mg tablet Completed 05/14/2016 amoxicillin 875 mg-potassium clavulanate 125 mg tablet Completed 05/14/2016 azithromycin 250 mg tablet TAKE 2 TABLETS (500 MG) BY ORAL ROUTE ONCE DAILY FOR 1 DAY THEN 1 TABLET (250 MG) BY ORAL ROUTE ONCE DAILY FOR 4 DAYS Active Not available azithromycin 500 mg tablet Completed 05/14/2016 clotrimazole 1 % topical cream Completed 02/19/2017 docusate sodium 100 mg tablet Take 1 tablet every day by oral route as needed. Completed 05/14/2016 doxycycline hyclate 100 mg capsule Completed 10/18/2016 fluconazole 150 mg tablet Completed 05/14/2016 furosemide 40 mg tablet TAKE 1 TABLET BY MOUTH EVERY DAY Active Not available ibuprofen 400 mg tablet Completed 05/14/2016 ibuprofen 800 mg tablet Active Not available ipratropium-albuterol 0.5 mg-3 mg(2.5 mg base)/3 mL nebulization soln Active Not available ketorolac 60 mg/2 mL intramuscular solution Inject 2 mL as needed by intramuscular route for 2 days. Completed 02/19/2017 lactulose 10 gram/15 mL oral solution Completed 05/14/2016 levofloxacin 750 mg tablet Completed 05/14/2016 losartan 100 mg tablet Active Not available methocarbamol 750 mg tablet Active Not available methylprednisolone 4 mg tablets in a dose pack Completed 02/19/2017 metoprolol succinate ER 50 mg tablet,extended release 24 hr TAKE 1 TABLET BY MOUTH EVERY DAY Active Not available omeprazole 20 mg capsule,delayed release TAKE 1 CAPSULE BY MOUTH EVERY DAY Active Not available potassium chloride ER 20 mEq tablet,extended release(part/cryst) Active Not available prednisone 20 mg tablet Take 2 tablets every day by oral route in the morning for 10 days. Active Not available ProAir HFA 90 mcg/actuation aerosol inhaler Inhale 2 puffs every 4 hours by inhalation route. Active Not available Symbicort 160 mcg-4.5 mcg/actuation HFA aerosol inhaler Active Not available terbinafine HCl 250 mg tablet Completed 05/14/2016 tramadol 50 mg tablet Completed 05/14/2016 triamcinolone acetonide 0.1 % topical cream Completed 02/19/2017 [facility]ios Aerosol Delivery System Completed 06/17/2017 zafirlukast 20 mg tablet Completed 05/14/2016 Problems Name Status Onset Date Source Morbid Obesity Active 04/18/2015 History Hypertensive Heart Disease Active 04/18/2015 History Chronic Obstructive Lung Disease Active 04/18/2015 History Gastroesophageal Reflux Disease Active 04/18/2015 History Idiopathic Osteoarthritis Active 04/18/2015 History Arthropathy Active 04/18/2015 History Body Mass Index 40+ - Severely Obese Unknown 04/18/2015 History Lesion of Lung Unknown 04/18/2015 History On Examination - Eyes - Arcus Senilis Active 01/26/2016 Bilateral Age-related Nuclear Cataracts Active 01/26/2016 Prediabetes Active 05/14/2016 Procedures Date Name Performed by 05/14/2016 XR, Foot, 3 or More View [facility] [address] [place] [address] (Work Place) 05/14/2016 MAMMO, Screening, Bilateral [facility] [address] [place] [address] (Work Place) 05/14/2016 Bone Density, Dual Photon Absorptiometry [facility] [address] [facility] [place] [address] (Work Place) 06/17/2017 Bone Density [facility] [place] [facility] [address] [place] [address] (Work Place) Notes: 09/19/2015: TUBAL LIGATION COMPLICATIONS; Surgery Date: 1982 Lab Results Date Name Specimen Result Interpretation Description Value Range Status Address 10/18/2016 TSH, Serum or Plasma Normal Tsh 1.40 mIU/L 0.40-4.50 mIU/L Final [facility] Laboratory: [address] [place] [address]/27/2017 CBC W/ Auto Diff Normal White Blood Cell Count 8.3 thousand/uL 3.8-10.8 thousand/uL Final [facility] Laboratory: [address] Normal Red Blood Cell Count 4.50 million/uL 3.80-5.10 million/uL Final [facility] Laboratory: [address] [place] Normal Hemoglobin 13.4 g/dL 11.7-15.5 g/dL Final [facility] Laboratory: [address] [place] Normal Hematocrit 40.6 % 35.0-45.0 % Final [facility] Laboratory: [address] [place] Normal Mcv 90.2 fL 80.0-100.0 fL Final [facility] Laboratory: [address] [place] Normal Mch 29.8 pg 27.0-33.0 pg Final [facility] Laboratory: [address] [place] Normal Mchc 33.1 g/dL 32.0-36.0 g/dL Final [facility] Laboratory: [address] [place] Normal Rdw 14.2 % 11.0-15.0 % Final [facility] Laboratory: [address] [place] Normal Platelet Count 197 thousand/uL 140-400 thousand/uL Final [facility] Laboratory: [address] [place] Normal Mpv 11.5 fL 7.5-12.5 fL Final [facility] Laboratory: [address] [place] Normal Absolute Neutrophils 5976 cells/uL 5288-6395 cells/uL Final [facility] Laboratory: [address] [place] Normal Absolute Lymphocytes 1411 cells/uL 850-3900 cells/uL Final [facility] Laboratory: [address] [place] Normal Absolute Monocytes 739 cells/uL 200-950 cells/uL Final [facility] Laboratory: [address] [place] Normal Absolute Eosinophils 125 cells/uL 15-500 cells/uL Final [facility] Laboratory: [address] [place] Normal Absolute Basophils 50 cells/uL 0-200 cells/uL Final [facility] Laboratory: [address] [place] Normal Neutrophils 72.0 % Final [facility] Laboratory: [address] [place] [address], [place] Normal Lymphocytes 17.0 % Final [facility] Laboratory: [address] [place] [address], [place] Normal Monocytes 8.9 % Final [facility] Laboratory: [address] [place] [address], [place] Normal Eosinophils 1.5 % Final [facility] Laboratory: [address] [place] [address], [place] Normal Basophils 0.6 % Final [facility] Laboratory: [address] [place] [address] 10/18/2016 Lipid Panel, Serum Normal Cholesterol, Total 179 mg/dL 125- 200 mg/dL Final [facility] Laboratory: [address] Normal HDL Cholesterol 47 mg/dL > or=46 mg/dL Final [facility] Laboratory: [address] Normal Triglycerides 140 mg/dL <150 mg/dL Final [facility] Laboratory: [address] Normal LDL-cholesterol 104 mg/dL (calc) <130 mg/dL (calc) Final [facility] Laboratory: [address] Normal Chol/hdlc Ratio 3.8 (calc) < or=5.0 (calc) Final [facility] Laboratory: [address] Normal Non HDL Cholesterol 132 mg/dL (calc) Final [facility] Laboratory: [address] 10/18/2016 CMP, Serum or Plasma Normal Glucose 90 mg/dL 65-99 mg/dL Final [facility] Laboratory: [address] Normal Urea Nitrogen (BUN) 15 mg/dL 7-25 mg/dL Final [facility] Laboratory: [address] Normal Creatinine 0.73 mg/dL 0.50-0.99 mg/dL Final [facility] Laboratory: [address] Normal eGFR Non-afr. Sammarinese 86 mL/min/1.73m2 > or=60 mL/min/1.73m2 Final [facility] Laboratory: [address] Normal eGFR 99 mL/min/1.73m2 > or=60 mL/min/1.73m2 Final [facility] Laboratory: [address] BUN/creatinine Ratio not applicable (calc) 6-22 (calc) Final [facility] Laboratory: [address] Normal Sodium 140 mmol/L 135-146 mmol/L Final [facility] Laboratory: [address] Normal Potassium 3.8 mmol/L 3.5-5.3 mmol/L Final [facility] Laboratory: [address] [place] [address] Normal Chloride 101 mmol/L 98-110 mmol/L Final [facility] Laboratory: [address] Normal Carbon Dioxide 31 mmol/L 20-31 mmol/L Final [facility] Laboratory: [address] Normal Calcium 9.2 mg/dL 8.6-10.4 mg/dL Final [facility] Laboratory: [address] Normal Protein, Total 7.7 g/dL 6.1-8.1 g/dL Final [facility] Laboratory: [address] Normal Albumin 3.8 g/dL 3.6-5.1 g/dL Final [facility] Laboratory: [address] High Globulin 3.9 g/dL (calc) 1.9-3.7 g/dL (calc) Final [facility] Laboratory: [address] Normal Albumin/globulin Ratio 1.0 (calc) 1.0-2.5 (calc) Final [facility] Laboratory: [address] Normal Bilirubin, Total 0.5 mg/dL 0.2-1.2 mg/dL Final [facility] Laboratory: [address] Normal Alkaline Phosphatase 123 U/L 33-130 U/L Final [facility] Laboratory: [address] Normal Ast 13 U/L 10-35 U/L Final [facility] Laboratory: [address] Normal Alt 11 U/L 6-29 U/L Final [facility] [address] [facility] 10/[facility]2016 T4, Free, Serum Normal T4, Free 1.2 NG/dL 0.8-1.8 NG/dL Final [facility] Laboratory[facility] [address] [facility] 05/14/2016 Lipid Panel, Serum Normal Cholesterol, Total 170 mg/dL 125- 200 mg/dL Final [facility] Lab: [address], [place] Normal HDL Cholesterol 48 mg/dL > or=46 mg/dL Final [facility] Lab: [address], [place] Normal Triglycerides 80 mg/dL <150 mg/dL Final [facility] Lab: [address], [place] Normal LDL-cholesterol 106 mg/dL (calc) <130 mg/dL (calc) Final [facility] Lab: [address], [place] Normal Chol/hdlc Ratio 3.5 (calc) < or=5.0 (calc) Final [facility] Lab: [address], [place] Normal Non HDL Cholesterol 122 mg/dL (calc) Final [facility] Lab: [address], [place] 05/14/2016 CMP, Serum or Plasma High Glucose 119 mg/dL 65-99 mg/dL Final [facility] Lab: [address], [place] Normal Urea Nitrogen (BUN) 25 mg/dL 7-25 mg/dL Final [facility] Lab: [address], [place] Normal Creatinine 0.81 mg/dL 0.50-0.99 mg/dL Final [facility] Lab: [address], [place] Normal eGFR Non-afr. Sammarinese 76 mL/min/1.73m2 > or=60 mL/min/1.73m2 Final [facility] Lab: [address], [place] Normal eGFR 88 mL/min/1.73m2 > or=60 mL/min/1.73m2 Final [facility] Lab: [address], [place] BUN/creatinine Ratio not applicable (calc) 6-22 (calc) Final [facility] Lab: [address], [place] Normal Sodium 139 mmol/L 135-146 mmol/L Final [facility] Lab: [address], [place] Normal Potassium 4.5 mmol/L 3.5-5.3 mmol/L Final [facility] Lab: [address], [place] Normal Chloride 101 mmol/L 98-110 mmol/L Final [facility] Lab: [address], [place] Normal Carbon Dioxide 31 mmol/L 20-31 mmol/L Final [facility] Lab: [address], [place] Normal Calcium 8.6 mg/dL 8.6-10.4 mg/dL [facility] Lab: [address], [place] Normal Protein, Total 7.1 g/dL 6.1-8.1 g/dL Final [facility] Lab: [address], [place] Normal Albumin 3.6 g/dL 3.6-5.1 g/dL [facility] Lab: [address], [place] Normal Globulin 3.5 g/dL (calc) 1.9-3.7 g/dL (calc) Final [facility] Lab: [address], [place] Normal Albumin/globulin Ratio 1.0 (calc) 1.0-2.5 (calc) [facility] Lab: [address], [place] Normal Bilirubin, Total 0.5 mg/dL 0.2-1.2 mg/dL Final [facility] Lab: [address], [place] Normal Alkaline Phosphatase 113 U/L 33-130 U/L [facility] Lab: [address], [place] Normal Ast 11 U/L 10-35 U/L [facility] Lab: [address], [place] Normal Alt 10 U/L 6-29 U/L [facility] Lab: [address], [place] 05/14/2016 CBC W/ Auto Diff Normal White Blood Cell Count 7.0 thousand/uL 3.8-10.8 thousand/uL [facility] Lab: [address], [place] Normal Red Blood Cell Count 4.22 million/uL 3.80-5.10 million/uL [facility] Lab: [address], [place] Normal Hemoglobin 12.4 g/dL 11.7-15.5 g/dL [facility] Lab: [address], [place] Normal Hematocrit 38.3 % 35.0-45.0 % [facility] Lab: [address], [place] Normal Mcv 90.8 fL 80.0-100.0 fL Final [facility] Lab: [address], [place] Normal Mch 29.4 pg 27.0-33.0 pg Final [facility] Lab: [address] [facility], [place] Normal Mchc 32.4 g/dL 32.0-36.0 g/dL Final [facility] Lab: [address], [place] Normal Rdw 14.4 % 11.0-15.0 % Final [facility] Lab: [address], [place] Normal Platelet Count 188 thousand/uL 140-400 thousand/uL Final [facility] Lab: [address], [place] High Mpv 12.6 fL 7.5-12.5 fL Final [facility] Lab: [address], [place] Normal Absolute Neutrophils 5089 cells/uL 6056-3799 cells/uL Final [facility] Lab: [address], [place] Normal Absolute Lymphocytes 1309 cells/uL 850-3900 cells/uL Final [facility] Lab: [address] [facility], [place] Normal Absolute Monocytes 434 cells/uL 200-950 cells/uL Final [facility] Lab: [address], [place] Normal Absolute Eosinophils 140 cells/uL 15-500 cells/uL Final [facility] Lab: [address] [facility], [place] Normal Absolute Basophils 28 cells/uL 0-200 cells/uL Final [facility] Lab: [address], [place] Normal Neutrophils 72.7 % [facility] Lab: [address], [place] Normal Lymphocytes 18.7 % [facility] Lab: [address] [place] [address], [place] Normal Monocytes 6.2 % Final [facility] Lab: [address], [place] Normal Eosinophils 2.0 % Final [facility] Lab: [address], [place] Normal Basophils 0.4 % [facility] Lab: [address], [place] 05/14/2016 HbA1C (Hemoglobin a1C), Blood High Hemoglobin a1C 5.8 % of total HGB <5.7 % of total HGB Final [facility] Lab: [address] [facility], [place] Pulse Oximetry Pulse Ox 97% [facility]: [address] [facility] [address] [facility], [place] Urinalysis, Dipstick Color Color yellow [facility]: [address] [facility] [address], [place] Color Appearance clear [facility] [place]: [address] [facility] [address], [place] Color Glucose negative [facility] [place]: [address] [facility] [address], [place] Color Bilirubin negative [facility] [place]: [address] [facility] [address], [place] Color Ketones negative [facility] [place]: [address] [facility] [address], [place] Color Specific [place] 1.010 [facility] [place]: [address] [facility] [address], [place] Color Blood negative [facility] [place]: [address] [facility] [address], [place] Color PH 5.0 [facility] [place]: [address] [facility] [address], [place] Color Protein negative [facility] [place]: [address] [facility] [address], [place] Color Urobilinogen 1 [facility] [place]: [address] [facility] [address], [place] Color Nitrites negative [facility] [place]: [address] [facility] [address], [place] Color Leukocytes negative [facility]: [address] [facility] [address], [place] Past Encounters 06/17/2017 Hypertensive Heart Disease; Gastroesophageal Reflux Disease; Body Mass Index 40+ - Severely Obese; Acute Exacerbation of Chronic Obstructive Airways Disease; Screening for Malignant Neoplasm of Colon; Screening for Osteoporosis; Prediabetes DAMIAN Verma: [address] [facility], [address] [address], Ph. 03/05/2017 Estephanie Hutchison: [address] [address], Ph. 02/19/2017 Follow-up Visit; Chest Pain; Chronic Obstructive Lung Disease; Hypertensive Heart Disease DAMIAN Benjamin: [address] [facility], [address] [address], Ph. 12/28/2016 Lumbago with Sciatica; Acute Low Back Pain Eloy Malcolm MD: [address] [facility], [address] [address], Ph. 12/20/2016 Dermatophytosis; Muscle Pain; Immunization Solis Vasquez MD: [address] [facility], [address] [address], Ph. 10/18/2016 Gastroesophageal Reflux Disease; Body Mass Index 40+ - Severely Obese; Hypertensive Heart Disease; Morbid Obesity Azeb BrewsterAUGUSTINE: [address] [facility], [address], [place] [address], Ph. 05/25/2016 Acute Exacerbation of Chronic Obstructive Airways Disease; Hypertensive Heart Disease Azeb BerwsterAUGUSTINE: [address] [facility], [address], [place] [address], Ph. 05/14/2016 Hypertensive Heart Disease; Chronic Obstructive Lung Disease; Morbid Obesity; Prediabetes; Gastroesophageal Reflux Disease; Pain in Left Foot; Screening Mammography; Immunization; Postmenopausal State Azeb BrewsterAUGUSTINE: [address] [facility], [address], [place] [address], Ph. Social History Smoking Status Never Smoker Vaccine List Vaccine Type influenza, high dose seasonal 12/20/20160.5 mL influenza, injectable, quadrivalent 12/06/2015 pneumococcal conjugate PCV 13 05/14/20160.5 mL zoster 08/23/2013 Plan of Care Patient Instructions Increase PO fluids. Complete all antibiotics as prescribed. Call or RTC for worsening of symptoms or no improvement in 2-3 days. Reminders Provider Appointments None recorded. Lab None recorded. Referral None recorded. Procedures None recorded. Surgeries None recorded. Imaging None recorded. Vitals 06/17/2017 08:45AM Est Patient Height Weight BMI Blood Pressure 5 ft 1 in 290 lbs 54.8 kg/m2 (1) 182/81 mm[Hg] (2) 170/77 mm[Hg] 02/19/2017 09:15AM TCM - High Risk Height Weight BMI Blood Pressure 5 ft 1 in 296 lbs 55.9 kg/m2 170/62 mm[Hg] 12/28/2016 11:30AM Est Patient Height Weight BMI Blood Pressure 5 ft 1 in 297 lbs 56.1 kg/m2 140/63 mm[Hg] 12/20/2016 02:45PM Est Patient Height Weight BMI Blood Pressure 5 ft 1 in 295.8 lbs 55.9 kg/m2 147/61 mm[Hg] 10/18/2016 02:30PM Est Patient Height Weight BMI Blood Pressure 5 ft 1 in 297 lbs 56.1 kg/m2 158/77 mm[Hg] 05/25/2016 09:15AM Work In Same Day Height Weight BMI Blood Pressure 5 ft 1 in 298.4 lbs 56.4 kg/m2 152/57 mm[Hg] 05/14/2016 08:15AM Est Patient Height Weight BMI Blood Pressure 5 ft 1 in 297.8 lbs 56.3 kg/m2 139/49 mm[Hg] 09/19/2015 Height Weight BMI Blood Pressure 5 ft 1 in 290 lbs 54.79 kg/m2 153/59 mm[Hg] 09/14/2015 Height BMI 5 ft 1 in 55.92 kg/m2 09/14/2015 Weight Blood Pressure 296 lbs 149/90 mm[Hg] 07/19/2015 Height Weight BMI Blood Pressure 5 ft 1 in 296.2 lbs 55.96 kg/m2 140/78 mm[Hg] 04/18/2015 Height Weight BMI Blood Pressure 5 ft 1 in 300 lbs 56.68 kg/m2 136/72 mm[Hg]
[2018-06-03 11:45] VITALS: BP 150/59
--- NOTE | 2018-06-03 20:02 | Operative Report ---
DATE OF PROCEDURE: 06/03/2018 SURGEON: Sheridan Devlin MD [facility] OPERATOR: None. PREOPERATIVE DIAGNOSIS: Thickened endometrium in a postmenopausal patient. POSTOPERATIVE DIAGNOSIS: Thickened endometrium in a postmenopausal patient. PROCEDURES PERFORMED: Hysteroscopy, dilatation and curettage. ANESTHESIA: General. ESTIMATED BLOOD LOSS: Minimal. COMPLICATIONS: None. FINDINGS: Small uterus with stenotic cervix and third-degree rectocele and cystocele. Hysteroscopic findings included polypoid endometrial tissue throughout the endometrial cavity, bilateral tubal ostia not well visualized. SPECIMENS: Endometrial curettings. INDICATION: The patient is a 68-year-old postmenopausal female, found to have thickened endometrium on ultrasound. PROCEDURE NOTE: Prior to the procedure, the risks, benefits, indications, and alternatives were discussed and the patient agreed to proceed. Following anesthesia, the patient was placed in the modified dorsal lithotomy position in [facility] stirrups. Prepping and draping were performed in typical sterile fashion and a time-out was done. A weighted speculum was placed in the vagina. The cervix was grasped with single tooth tenaculum. Cervix was sequentially dilated and hysteroscope was inserted with the findings as previously mentioned. The TruClear device was inserted into the hysteroscope and used to perform an endometrial curettage under direct visualization. A sharp curettage was then performed until a good gritty texture was noted. Endometrial tissue was sent to pathology. All instruments were then removed from the patient. Silver nitrate was used to ensure hemostasis at the tenaculum site. All sponge, lap, needle, and instrument counts were correct x2. The patient was awakened from anesthesia and moved to recovery room in stable condition. Sheridan Devlin MD MEF/MODL /[id number]
== END | disposition home or self-care (01) ==
LOC: OR 06:43
PROVIDERS: ATTEND Obstetrics & Gynecology Obstetrics
DX: R93.89 Abnormal findings on diagnostic imaging of other specified body structures (principal); R19.09 Other intra-abdominal and pelvic swelling, mass and lump; Z01.810 Encounter for preprocedural cardiovascular examination; Z01.812 Encounter for preprocedural laboratory examination; N95.9 Unspecified menopausal and perimenopausal disorder; F41.9 Anxiety disorder, unspecified; I10 Essential (primary) hypertension; K21.9 Gastro-esophageal reflux disease without esophagitis; K44.9 Diaphragmatic hernia without obstruction or gangrene; Z87.442 Personal history of urinary calculi; E66.01 Morbid (severe) obesity due to excess calories; Z01.811 Encounter for preprocedural respiratory examination; Z79.82 Long term (current) use of aspirin
CPT/HCPCS: 36415; 58558; 71046; 85025; 88305; 93005; J1100; J1170; J1885; J2001; J2250; J2405; J2704; J3490

== ENCOUNTER → 2018-06-25 | Day surgery (SDC) | payer MEDICARE, OTHER ==
[2018-06-24 16:08] LABS: ALANINE AMINOTRANSFERASE 20 IU/L (0-55); ALBUMIN 3.4 g/dL (3.5-5.0); ALBUMIN/GLOBULIN RATIO 0.7 (0.8-2.0); ALKALINE PHOSPHATASE 103 IU/L (40-150); ANION GAP 8.9 mmol/L (8-16); BLOOD UREA NITROGEN 12 mg/dL (7-26); BUN/CREATININE RATIO 17 (6-25); CALCIUM 9.8 mg/dL (8.4-10.2); CARBON DIOXIDE 29 mmol/L (22-29); CHLORIDE 101 mmol/L (98-107); CREATININE, SERUM 0.72 mg/dL (0.57-1.11); EST GLOMERULAR FILTRATION RATE > 60 ML/MIN (60-); GLUCOSE 122 mg/dL (74-118); POTASSIUM 3.9 mmol/L (3.5-5.1); SODIUM 135 mmol/L (136-145)
[~2018-06-25] MED LIST changes: +BUPIVACAINE HCL 0.5% INJ 30 ML VIAL INJ ONE; +CEFAZOLIN SOD 2 GM/D5W 50ML 50 ML IV ONE; -HYDROMORPHONE 2MG/ML 2 MG/ML ML ONE; +LABETALOL HCL 5 MG/ML 20ML VIAL ONE; +PHENYLEPHRINE HCL 1% 10 MG/ML VIAL ONE; -SILVER NITRATE SWABS ONE; -SUCCINYLCHOLINE 200 MG/10 ML SYR ONE
[2018-06-25 10:25] VITALS: BP 120/46
--- NOTE | 2018-06-25 11:06 | Operative Report ---
DATE OF PROCEDURE: 06/25/2018 SURGEON: Jacob Hayes MD PREOPERATIVE DIAGNOSES: Chronic cholecystitis, cholelithiasis. POSTOPERATIVE DIAGNOSES: Chronic cholecystitis, cholelithiasis. PROCEDURES: Diagnostic laparoscopy, laparoscopic cholecystectomy. HEALTH CENTER ASSOCIATE: None. ANESTHESIA: General endotracheal. INDICATIONS AND FINDINGS: The patient is a 68-year-old female complains of epigastric abdominal pain. Workup revealed gallstones with sludge. Surgery, the patient's gallbladder was distended with a large stone impacting the gallbladder neck, gallbladder contains some sludge. Cystic duct was about 3 mm in diameter. Common bile duct was about 6 mm in diameter. Liver had changes of fatty infiltration. Stomach and lower abdomen appeared normal. TECHNIQUE: After adequate general endotracheal anesthesia, the patient in supine position, the abdomen was prepped and draped in sterile fashion with ChloraPrep solution. Just to the right of the umbilicus skin and subcutaneous tissues were infiltrated with 0.5% Marcaine. Transverse incision was made. Abdominal wall was elevated and Veress needle was introduced. Pneumoperitoneum was then created. A 10 mm trocar and cannula was then passed through the umbilical wound. Laparoscopic camera was introduced. Initial laparoscopy revealed fatty infiltration of liver. Stomach and lower abdomen appeared normal. The lower abdomen was obscured by omentum. A 10 mm trocar and cannula was placed in the epigastrium and two 5 mm trocars and cannulas were placed in the right upper quadrant. These were placed under direct vision. Fundus of the gallbladder was grasped, retracted superiorly. There were adhesions over the neck and fundus of the gallbladder involving omentum and duodenum. These were lysed staying close to the gallbladder. Neck of the gallbladder was grasped, retracted laterally. Peritoneum over the neck of the gallbladder was incised. The gallbladder cystic duct junction was dissected free. Cystic artery was also dissected free. Cystic artery was divided between hemoclips close to the gallbladder. There was a posterior branch of cystic artery, which was also divided between hemoclips close to the gallbladder. Cystic duct was also divided between hemoclips with three clips being left on the common bile duct side. The gallbladder was dissected free from the liver using scissors and electrocautery. Once it was entirely free, it was placed into an Endopouch and brought out through the epigastric cannula, contained at least one large stone. The gallbladder bed was inspected for hemostasis, which was seen to be adequate. It was irrigated with saline. All fluid aspirated, inspected once again for hemostasis which was seen to be adequate. Instruments and cannulas were then removed. Pneumoperitoneum was evacuated. Wounds were then closed. Fascia in the umbilical and epigastric wound closed with 0 Vicryl. Skin to all wounds closed with christine. Sterile dressings were applied to each wound. The patient tolerated the procedure well. Estimated blood loss was 15 mL. There were no complications. All counts were correct and the patient was taken to the recovery room in satisfactory condition. MD BENITA MathewsG/MODL /[id number] cc: Solis Vasquez MD
== END | disposition home or self-care (01) ==
LOC: OR 06:31
PROVIDERS: ATTEND Surgery
DX: K80.10 Calculus of gallbladder with chronic cholecystitis without obstruction (principal); Z01.810 Encounter for preprocedural cardiovascular examination; Z01.812 Encounter for preprocedural laboratory examination; K21.9 Gastro-esophageal reflux disease without esophagitis; R06.02 Shortness of breath; I10 Essential (primary) hypertension; K82.8 Other specified diseases of gallbladder
CPT/HCPCS: 36415; 47562; 80053; 88304; J0690; J1100; J1885; J2001; J2250; J2370; J2405; J2704; J3490 ×2

== ENCOUNTER → 2018-07-21 | Outpatient (CLI) | payer MEDICARE, OTHER ==
[~2018-07-21] MED LIST changes: -ALBUTEROL SULFATE HFA 8GM INHALATION AEROSOL INH ONE; -BUPIVACAINE HCL 0.5% INJ 30 ML VIAL INJ ONE; -CEFAZOLIN SOD 2 GM/D5W 50ML 50 ML IV ONE; -DEXAMETHASONE SOD PHOS INJ 4 MG/ML VIAL ONE; -EPHEDRINE SULFATE INJ 50 MG/10 ML SYR ONE; -FENTANYL CITRATE/PF 100MCG/2 ML INJ ONE; -GLYCOPYRROLATE INJ 1MG/ 5 ML SYR ONE; -KETOROLAC TROMETHAMINE 30 MG/ML VIAL ONE; -LABETALOL HCL 5 MG/ML 20ML VIAL ONE; -LIDOCAINE HCL 2% LOCAL INJ 5 ML SDV VIAL INJ ONE; -MIDAZOLAM HCL 2 MG/2 ML VIAL ONE; -NEOSTIGMINE 5 MG/5ML SYR ONE; -ONDANSETRON HCL INJ 2MG/ML 2ML 2 MG/ML VIAL ONE; -PHENYLEPHRINE HCL 1% 10 MG/ML VIAL ONE; -PROPOFOL IV EMULSION 10 MG/ML 20 ML VIAL ONE; -ROCURONIUM BROMIDE 10 MG/ML 5ML VIAL ONE; -SEVOFLURANE INHAL SOLN 250 ML PEN BTL ONE
[2018-07-21 11:30] LABS: BLOOD UREA NITROGEN 10 mg/dL (7-26); BUN/CREATININE RATIO 13 (6-25); EST GLOMERULAR FILTRATION RATE > 60 ML/MIN (60-)
== END ==
LOC: MRI 10:32
PROVIDERS: ATTEND Obstetrics & Gynecology Obstetrics
DX: R19.00 Intra-abdominal and pelvic swelling, mass and lump, unspecified site (principal); R10.2 Pelvic and perineal pain
CPT/HCPCS: 36415; 82565; 84520

== ENCOUNTER 2018-08-22 13:13 | Emergency (ER) | payer MEDICARE, OTHER ==
[~2018-08-22] VITALS: Ht 154.9 cm; Wt 120.2 kg
[2018-08-22 14:21] LABS: BILIRUBIN,URINE NEGATIVE (NEGATIVE); CLARITY,URINE SL CLOUDY (CLEAR); COLOR,URINE YELLOW (YELLOW); KETONES,URINE NEGATIVE (NEGATIVE); LEUKOCYTE ESTERASE ,URINE TRACE (NEGATIVE); NITRITE,URINE NEGATIVE (NEGATIVE); PROTEIN,URINE DIPSTICK NEGATIVE (NEGATIVE); URINE UROBILINOGEN 4 mg/dL (0.2 - 1)
[2018-08-22 14:39] LABS: BACTERIA,URINE MODERATE /HPF; EPITHELIAL CELLS,URINE MANY /LPF; RENAL EPITHELIAL CELLS,URINE FEW; TRANSITIONAL EPI CELLS,URINE FEW
[2018-08-26] MEDS ORDERED: METOPROLOL TART50 MG PO (09:40)
[2018-08-26] MEDS ORDERED: MELOXICAM7.5 MG PO (09:40)
[2018-08-26] MEDS ORDERED: CEFDINIR300 MG PO (09:40)
[2018-08-26] MEDS ORDERED: ULTRAM 50MG50 MG PO (09:41)
[2018-08-26] MEDS ORDERED: LISINOPRIL-HCT1 EACH PO (09:41)
[2018-08-26] MEDS ORDERED: LINZESS PO (09:41)
== END 2018-08-22 16:00 | disposition home or self-care (01) ==
LOC: ER 13:13
DX: R10.2 Pelvic and perineal pain (principal); N30.90 Cystitis, unspecified without hematuria; I10 Essential (primary) hypertension; E78.5 Hyperlipidemia, unspecified
CPT/HCPCS: 81001; 99284

== ENCOUNTER → 2018-08-27 | Day surgery (SDC) | payer MEDICARE, OTHER ==
[2018-08-26 09:37] LABS: BASOPHILS # (AUTO) 0.1 (0.0-0.1); BASOPHILS % 0.5 % (0.0-1.0); EOSINOPHILS # (AUTO) 0.1 (0.0-0.4); EOSINOPHILS % 0.5 % (0.0-6.0); HEMATOCRIT 42.4 % (34.2-44.1); HEMOGLOBIN 13.7 g/dL (12.0-16.0); LYMPHOCYTES % 7.2 % (18.0-39.1); MEAN CORPUSCULAR HEMOGLOBIN 29.4 pg (28-32); MEAN CORPUSCULAR HGB CONC 32.3 g/dL (31-35); MONOCYTES # (AUTO) 1.4 (0.2-0.8); MONOCYTES % 9.9 % (4.4-11.3); NEUTROPHILS # (AUTO) 11.3 (2.1-6.9); NEUTROPHILS % 81.4 % (38.7-80.0); PLATELET COUNT 290 x10e3/uL (140-360); RED BLOOD COUNT 4.66 x10e6/uL (3.6-5.1); RED CELL DISTRIBUTION WIDTH 13.2 % (11.7-14.4)
[2018-08-26 09:57] LABS: ANION GAP 15.1 mmol/L (8-16); BLOOD UREA NITROGEN 10 mg/dL (7-26); BUN/CREATININE RATIO 11 (6-25); CALCIUM 10.9 mg/dL (8.4-10.2); CARBON DIOXIDE 30 mmol/L (22-29); CHLORIDE 94 mmol/L (98-107); CREATININE, SERUM 0.88 mg/dL (0.57-1.11); EST GLOMERULAR FILTRATION RATE > 60 ML/MIN (60-); GLUCOSE 150 mg/dL (74-118); POTASSIUM 4.1 mmol/L (3.5-5.1); SODIUM 135 mmol/L (136-145)
[~2018-08-27] MED LIST changes: +CEFAZOLIN SOD 1 GM VIAL ONE; +CEFDINIR300 MG PO; +DEXAMETHASONE SOD PHOS INJ 4 MG/ML VIAL ONE; +FENTANYL CITRATE/PF 100MCG/2 ML INJ ONE; +HYDROCODONE/APAP 5MG-325MG TAB ONE; +HYDROMORPHONE 2MG/ML 2 MG/ML ML ONE; +LIDOCAINE HCL 2% LOCAL INJ 5 ML SDV VIAL INJ ONE; +LINZESS PO; +LISINOPRIL-HCT1 EACH PO; +MELOXICAM7.5 MG PO; +METOCLOPRAMIDE HCL 10 MG/2ML VIAL ONE; +METOPROLOL TART50 MG PO; +MIDAZOLAM HCL 2 MG/2 ML VIAL ONE; +ONDANSETRON HCL INJ 2MG/ML 2ML 2 MG/ML VIAL ONE; +PROMETHAZINE HCL (IM) 25 MG/ML VIAL ONE; +PROPOFOL IV EMULSION 10 MG/ML 20 ML VIAL ONE; +SEVOFLURANE INHAL SOLN 250 ML PEN BTL ONE; +ULTRAM 50MG50 MG PO
[2018-08-27 16:00] VITALS: BP 138/51
--- NOTE | 2018-08-27 17:05 | Operative Report ---
DATE OF PROCEDURE: 08/27/2018 SURGEON: Sheridan Devlin MD MOBILE MANAGER: None. PREOPERATIVE DIAGNOSIS: Postmenopausal bleeding. POSTOPERATIVE DIAGNOSIS: Postmenopausal bleeding. PROCEDURES PERFORMED: Hysteroscopy, dilatation and curettage. ANESTHESIA: General. ESTIMATED BLOOD LOSS: 5 mL. COMPLICATIONS: None. FINDINGS: Small atrophic cervix with hysteroscopic findings revealing polypoid endometrial tissue and multiple uterine fibroids within the cavity and distorting the cavity. SPECIMENS: Endometrial curettings. INDICATIONS: The patient is a 68-year-old postmenopausal female with postmenopausal bleeding. PROCEDURE NOTE: Prior to the procedure, the risks, benefits, indications, and alternatives were discussed and the patient agreed to proceed. Following anesthesia, the patient was placed in modified dorsal lithotomy position in [facility]. Prepping and draping was performed in typical sterile fashion. A time-out was done. A weighted speculum was placed in the vagina and cervix was grasped with a single-tooth tenaculum. Cervix was sequentially dilated and hysteroscope inserted with findings as previously mentioned. Sharp curettage was then performed until gritty texture was noted. Endometrial tissue was sent to the pathologist. All instruments were then removed from the patient. The tenaculum sites were noted to be hemostatic. All sponge, lap, needle, and instrument counts were correct x2. The patient was stable at the completion of the procedure and transferred to recovery room in stable condition. Sheridan Devlin MD MEF/MODL /[id number]
== END | disposition home or self-care (01) ==
LOC: OR 10:50
PROVIDERS: ATTEND Obstetrics & Gynecology Obstetrics
DX: D25.9 Leiomyoma of uterus, unspecified (principal); N95.8 Other specified menopausal and perimenopausal disorders; N39.0 Urinary tract infection, site not specified; E66.01 Morbid (severe) obesity due to excess calories; I10 Essential (primary) hypertension; Z91.041 Radiographic dye allergy status; Z01.810 Encounter for preprocedural cardiovascular examination; Z01.812 Encounter for preprocedural laboratory examination; Z79.82 Long term (current) use of aspirin
CPT/HCPCS: 36415; 58558; 80048; 85025; 88305; 93005; J0690; J1100; J1170; J2001; J2250; J2405; J2550; J2704; J2765

== ENCOUNTER 2018-09-23 17:27 | Inpatient (IN) | payer MEDICARE, OTHER ==
[~2018-09-23] VITALS: Ht 160 cm; Wt 119.0 kg
[~2018-09-23 17:27] MED LIST changes: -CEFAZOLIN SOD 1 GM VIAL ONE; -DEXAMETHASONE SOD PHOS INJ 4 MG/ML VIAL ONE; -FENTANYL CITRATE/PF 100MCG/2 ML INJ ONE; -HYDROCODONE/APAP 5MG-325MG TAB ONE; -HYDROMORPHONE 2MG/ML 2 MG/ML ML ONE; -LIDOCAINE HCL 2% LOCAL INJ 5 ML SDV VIAL INJ ONE; -METOCLOPRAMIDE HCL 10 MG/2ML VIAL ONE; -MIDAZOLAM HCL 2 MG/2 ML VIAL ONE; -ONDANSETRON HCL INJ 2MG/ML 2ML 2 MG/ML VIAL ONE; -PROMETHAZINE HCL (IM) 25 MG/ML VIAL ONE; -PROPOFOL IV EMULSION 10 MG/ML 20 ML VIAL ONE; -SEVOFLURANE INHAL SOLN 250 ML PEN BTL ONE
--- OUTSIDE RECORDS SUMMARY | 2018-09-23 17:32 | XMS REPORT | Continuity of Care Document ---
Author Author [facility] Organization [facility] Address Unknown Phone Unavailable Care Team Providers Care Manager Validation Name Role Phone [employer] Unavailable Unavailable Problems Problem Status Onset Date Classification Date Reported Comments Source Screening for osteoporosis 06/17/2017 Diagnosis 06/17/2017 [facility] Screening for malignant neoplasm of colon 06/17/2017 Diagnosis 06/17/2017 [facility] Chest pain 02/19/2017 Diagnosis 06/17/2017 [facility] CHEST PAIN Active 02/17/2017 [facility] Lumbago with sciatica 12/28/2016 Diagnosis 06/17/2017 [facility] Acute low back pain 12/28/2016 Diagnosis 06/17/2017 [facility] Muscle pain 12/20/2016 Diagnosis 06/17/2017 [facility] Dermatophytosis 12/20/2016 Diagnosis 06/17/2017 [facility] Body mass index 40+ - severely obese 10/18/2016 Diagnosis 06/17/2017 [facility] Acute exacerbation of chronic obstructive airways disease 05/25/2016 Diagnosis 06/17/2017 [facility] Postmenopausal state 05/14/2016 Diagnosis 06/17/2017 [facility] Immunization 05/14/2016 Diagnosis 06/17/2017 [facility] Screening mammography 05/14/2016 Diagnosis 06/17/2017 [facility] Pain in left foot 05/14/2016 Diagnosis 06/17/2017 [facility] Morbid obesity 05/14/2016 Diagnosis 06/17/2017 [facility] Chronic obstructive lung disease 05/14/2016 Diagnosis 06/17/2017 [facility] Gastroesophageal reflux disease 05/14/2016 Diagnosis 06/17/2017 [facility] Hypertensive heart disease 05/14/2016 Diagnosis 06/17/2017 [facility] Prediabetes 05/14/2016 Problem 06/17/2017 [facility] On Examination - Eyes - Arcus Senilis 01/26/2016 Problem 06/17/2017 [facility] Bilateral Age-related Nuclear Cataracts 01/26/2016 Problem 06/17/2017 [facility] ABD PAIN Active 07/08/2015 [facility] Morbid Obesity 04/18/2015 Problem 06/17/2017 [facility] Hypertensive Heart Disease 04/18/2015 Problem 06/17/2017 [facility] Chronic Obstructive Lung Disease 04/18/2015 Problem 06/17/2017 [facility] Gastroesophageal Reflux Disease 04/18/2015 Problem 06/17/2017 [facility] Idiopathic Osteoarthritis 04/18/2015 Problem 06/17/2017 [facility] Arthropathy 04/18/2015 Problem 06/17/2017 [facility] Body Mass Index 40+ - Severely Obese 04/18/2015 Problem 06/17/2017 [facility] Lesion of Lung 04/18/2015 Problem 06/17/2017 [facility] Asthma Resolved Problem 02/21/2017 [facility] Gastroenteritis Resolved Problem 02/21/2017 [facility] GERD (Confirmed) Resolved Problem 02/21/2017 [facility] HTN (Confirmed) Resolved Problem 02/21/2017 [facility] Umbilical hernia, incarcerated Resolved Problem 02/21/2017 [facility] CALCULUS OF GALLBLADDER W/O CHOLECYSTITI Active [facility] Medications Medication Details Route Status Patient Instructions Ordering Provider Order Date Source Aspirin (Aspir-Low) 81 Mg Tablet.dr, 81 Mg Oral Daily Active 06/24/2018 [facility] Metoprolol Succinate 50 Mg Tab.er.24h, 50 Mg Oral Daily Active 06/24/2018 [facility] Furosemide 40 Mg Tablet, 40 Mg Oral Daily Active 05/28/2018 [facility] Metoprolol Succinate 50 Mg Tab.er.24h, 50 Mg Oral Daily Active 05/28/2018 [facility] Omeprazole 20 Mg Tablet.dr, 20 Mg Oral Daily Active 05/28/2018 [facility] Potassium Chloride 20 Meq Tab.er.prt, 20 Meq Oral Daily Active 05/28/2018 [facility] Vios Aerosol Delivery System Vios Aerosol Delivery System Active 06/17/2017 [facility] Clotrimazole 10 MG/ML Topical Cream clotrimazole 1 % topical cream Active 02/19/2017 [facility] 2 ML Ketorolac Tromethamine 30 MG/ML Injection ketorolac 60 mg/2 mL intramuscular solution Inject 2 mL as needed by intramuscular route for 2 days. Active 02/19/2017 [facility] methylprednisolone 4 mg tablets in a dose pack methylprednisolone 4 mg tablets in a dose pack Active 02/19/2017 [facility] Triamcinolone Acetonide 1 MG/ML Topical Cream triamcinolone acetonide 0.1 % topical cream Active 02/19/2017 [facility] Acetaminophen 325 MG / Hydrocodone Bitartrate 5 MG Oral Tablet [[place] 5/325] 1 tab, Route: PO, Drug Form: TAB, Dosing Weight 134, kg, ONCE, Start date: 02/18/17 9:31:00 SUPERVISOR GRINDING, Stop date: 02/18/17 9:31:00 CSTNotes: (Same as: [place] 325/5) Do not exceed 4gm/day of acetaminophen. Inactive 02/18/2017 [facility] Lisinopril 5 mg, 1 tab, Route: PO, Drug form: TAB, Daily, Dosing Weight 134, kg, Start date: 02/18/17 9:00:00 [employer]PERVISOR GRINDING, Duration: 30 day, Stop date: 03/19/17 9:00:00 CSTNotes: (Same as: Prinivil, Zestril) Inactive 02/18/2017 [facility] Aspirin 81 MG Chewable Tablet 81 mg, 1 tab, Route: PO, Drug form: CHEWTAB, Daily, Dosing Weight 134, kg, Start date: 02/18/17 9:00:00 SUPERVISOR GRINDING, Duration: 30 day, Stop date: 03/19/17 9:00:00 [employer]OR [employer]IND[employer] Inactive 02/18/2017 [facility] Lipitor 80 mg, 1 tab, Route: PO, Drug form: TAB, Bedtime, Dosing Weight 134, kg, Start date: 02/17/17 21:00:00 [employer]PERVISOR GRINDING, Duration: 30 day, Stop date: 03/18/17 21:00:00 CSTNotes: Same as Lipitor No Longer Active 02/18/2017 [facility] Saline Flush 0.9% 10 ml, Route: IVP, Drug Form: INJ, Dosing Weight 134, kg, Q12H, Start date: 02/17/17 21:00:00 [employer]PERVISOR GRINDING, Duration: 30 day, Stop date: 03/19/17 9:00:00 CSTNotes: (Same as: BD Posiflush) No Longer Active 02/18/2017 [facility] Saline Flush 0.9% 10 ml, Route: IVP, Drug Form: INJ, Dosing Weight 134, kg, PRN, PRN Line Flush, Start date: 02/17/17 17:27:00 SUPERVISOR GRINDING, Duration: 30 day, Stop date: 03/19/17 17:26:00 CSTNotes: (Same as: BD Posiflush) No Longer Active 02/17/2017 [facility] Ondansetron 4 mg, 1 tab, Route: PO, Drug form: TAB, Q8H, Dosing Weight 134, kg, PRN Nausea & Vomiting, Start date: 02/17/17 17:27:00 [employer]PER[employer]OR GRINDING, Duration: 30 day, Stop date: 03/19/17 17:26:00 CSTNotes: (Same as: Zofran) No Longer Active 02/17/2017 [facility] Nitroglycerin 0.4 mg, 1 tab, Route: SL, Drug form: TAB, Q5Min, Dosing Weight 134, kg, PRN Chest Pain, Start date: 02/17/17 17:27:00 SUPERVISOR GRINDING, Duration: 3 doses or times, Stop date: Limited # of times No Longer Active 02/17/2017 [facility] Morphine 2 mg, 0.5 mL, Route: IVP, Drug form: SOLN, Q15Min, Dosing Weight 134, kg, PRN Chest Pain, Start date: 02/17/17 17:27:00 [employer]PERVISOR GRINDING, Duration: 2 doses or times, Stop date: Limited # of timesNotes: (Same as:M ORPhine Sulfate) No Longer Active 02/17/2017 [facility] aspirin 81 mg tablet, enteric coated 81 mg, 1 tab, Route: PO, Drug form: ECTAB, Daily, Dosing Weight 134, kg, Start date: 02/17/17 17:26:00 [employer]PER[employer]OR GRINDING, Duration: 30 day, Stop date: 03/19/17 9:00:00 CSTNotes: Do not crush or chew. (Same As: Ecotrin) Inactive 02/17/2017 [facility] Morphine 1 mg, 0.25 mL, Route: IVP, Drug form: SOLN, Q2H, Dosing Weight 134, kg, PRN Pain Score 7-10, Start date: 02/17/17 16:52:00 SUPERVISOR GRINDING, Duration: 30 day, Stop date: 03/19/17 16:51:00 CSTNotes: (Same as:MORPhine Sulfate) No Longer Active 02/17/2017 [facility] Acetaminophen 300 MG / Codeine Phosphate 30 MG Oral Tablet [Tylenol with Codeine #3] 2 tab, Route: PO, Drug Form: TAB, Dosing Weight 134, kg, Q6H, PRN Pain Score 4-6, Start date: 02/17/17 16:52:00 SUPERVISOR GRINDING, Duration: 30 day, Stop date: 03/19/17 16:51:00 CSTNotes: Do not exceed 4gm/day of froy taminophen. (Same as: Tylenol with Codeine # 3) No Longer Active 02/17/2017 [facility] Nitroglycerin 0.4 MG Sublingual Tablet [Nitrostat] 0.4 mg, 1 tab, Route: SL, Drug form: TAB, Q5Min, Dosing Weight 134, kg, PRN Chest Pain, Start date: 02/17/17 16:51:00 SUPERVISOR GRINDING, Duration: 30 day, Stop date: 03/19/17 16:50:00 CSTNotes: (Same as:Nitroquick, Nitrostat) "Do Not Crush" Sublingual tablet Inactive 02/17/2017 [facility] Symbicort 160/4.5 inhalation aerosol with adapter 2 puff, INHALER, BID, PRN Shortness of breath, # 1 ea, 3 Refill(s) Active 02/17/2017 [facility] potassium chloride 20 mEq oral tablet, extended release 20 mEq=1 tab, PO, Daily, # 30 tab, 3 Refill(s) Active 02/17/2017 [facility] Ibuprofen 800 mg, PO, Q8H, PRN Pain Score 7-10, 0 Refill(s) Active 02/17/2017 [facility] Omeprazole 20 mg, PO, Daily, 0 Refill(s) Active 02/17/2017 [facility] methocarbamol 750 mg oral tablet 1,500 mg=2 tab, PO, TID, PRN Pain Score 4-6, 0 Refill(s) Active 02/17/2017 [facility] Nitroglycerin 0.4 MG Sublingual Tablet 0.4 mg, Route: SL, ONCE, Dosing Weight 133.636, kg, Priority: STAT, Start date: 02/17/17 10:26:00 SUPERVISOR GRINDING, Stop date: 02/17/17 10:26:00 SUPERVISOR GRINDING Inactive 02/17/2017 [facility] Aspirin 81 MG Chewable Tablet 324 mg, Route: PO, Drug form: CHEWTAB, ONCE, Dosing Weight 133.636, kg, Priority: STAT, Start date: 02/17/17 10:26:00 SUPERVISOR GRINDING, Stop date: 02/17/17 10:26:00 SUPERVISOR GRINDING Inactive 02/17/2017 [facility] doxycycline hyclate 100 MG Oral Capsule doxycycline hyclate 100 mg capsule Active 10/18/2016 [facility] Acetaminophen 300 MG / Codeine Phosphate 15 MG Oral Tablet acetaminophen 300 mg-codeine 15 mg tablet Active 05/14/2016 [facility] Amoxicillin 875 MG / Clavulanate 125 MG Oral Tablet amoxicillin 875 mg-potassium clavulanate 125 mg tablet Active 05/14/2016 [facility] Azithromycin 500 MG Oral Tablet azithromycin 500 mg tablet Active 05/14/2016 [facility] Docusate Sodium 100 MG Oral Tablet docusate sodium 100 mg tablet Take 1 tablet every day by oral route as needed. Active 05/14/2016 [facility] Fluconazole 150 MG Oral Tablet fluconazole 150 mg tablet Active 05/14/2016 [facility] Ibuprofen 400 MG Oral Tablet ibuprofen 400 mg tablet Active 05/14/2016 [facility] Lactulose 667 MG/ML Oral Solution lactulose 10 gram/15 mL oral solution Active 05/14/2016 [facility] Levofloxacin 750 MG Oral Tablet levofloxacin 750 mg tablet Active 05/14/2016 [facility] terbinafine 250 MG Oral Tablet terbinafine HCl 250 mg tablet Active 05/14/2016 [facility] tramadol hydrochloride 50 MG Oral Tablet tramadol 50 mg tablet Active 05/14/2016 [facility] zafirlukast 20 MG Oral Tablet zafirlukast 20 mg tablet Active 05/14/2016 [facility] metoprolol extended release 50 mg, 1 tab, Route: PO, Drug form: ERTAB, Daily, Start date: 07/11/15 16:00:00 CDT, Duration: 30 day, Stop date: 08/10/15 9:00:00 CDTNotes: (Same as: Toprol XL) May split tab, but do not crush. Inactive 07/11/2015 [facility] Losartan 100 mg, 2 tab, Route: PO, Drug form: TAB, Daily, Dosing Weight 136.96, kg, Start date: 07/11/15 14:00:00 CDT, Duration: 30 day, Stop date: 08/10/15 9:00:00 CDTNotes: (Same as: [place]) Inactive 07/11/2015 [facility] Furosemide 40 mg, 1 tab, Route: PO, Drug form: TAB, Daily, Dosing Weight 136.96, kg, Start date: 07/11/15 14:00:00 CDT, Duration: 30 day, Stop date: 08/10/15 9:00:00 CDTNotes: (Same as: Lasix) May cause GI upset. Give with food or milk. Inactive 07/11/2015 [facility] bifidobacterium-lactobacillus oral capsule 1 cap, PO, BID, # 10 cap, 0 Refill(s) Active 07/11/2015 [facility] Levofloxacin 750 MG Oral Tablet [Levaquin] 750 mg=1 tab, PO, Daily, X 5 day, # 5 tab, 0 Refill(s) Active 07/11/2015 [facility] Acetaminophen 300 MG / Codeine Phosphate 15 MG Oral Tablet 1 tab, PO, Q4H, PRN Pain, X 3 day, # 18 tab, 0 Refill(s) Active 07/11/2015 [facility] Albuterol 0.833 MG/ML / Ipratropium [place] 0.167 MG/ML Inhalant Solution [DuoNeb] 3 ml, Route: NEB, Drug Form: SOLN, Dosing Weight 136.96, kg, ONCE, PRN Respiratory Protocol, Start date: 07/11/15 12:22:00 CDT, Stop date: 08/10/15 12:21:00 CDTNotes: (Same as: Duoneb) Inactive 07/11/2015 [facility] Calcium Gluconate 3 gm, 30 mL, Route: IVPB, PRN, Dosing Weight 136.96, kg, PRN Abnormal Lab Result, For NON-ICU Patients Only., Start date: 07/10/15 10:15:00 CDT, Duration: 30 day, Stop date: 08/09/15 10:14:00 CDTNotes: WASTE: F/P - Sink; E - Municipal Trash Bin No Longer Active 07/10/2015 [facility] Magnesium Oxide 800 mg, 2 tab, Route: PO, Drug form: TAB, PRN, Dosing Weight 136.96, kg, PRN Abnormal Lab Result, For NON-ICU Patients Only., Start date: 07/10/15 10:15:00 CDT, Duration: 30 day, Stop date: 08/09/15 10:14:00 CDTNotes: (Same as: Mag-Ox 400) Magnesium oxide [id number] elemental magnesium Dose=____mg magnesium oxide (___mg elemental magnesium) No Longer Active 07/10/2015 [facility] sodium phosphate + Sodium Chloride 0.9% IV 250 mL 30 mmol, 10 mL, Route: IVPB, PRN, Dosing Weight 136.96, kg, PRN Abnormal Lab Result, For NON-ICU Patients Only., Start date: 07/10/15 10:15:00 CDT, Duration: 30 day, Stop date: 08/09/15 10:14:00 CDT No Longer Active 07/10/2015 [facility] Magnesium Sulfate 1 gm, 100 mL, Route: IVPB, Drug form: INJ, PRN, Dosing Weight 136.96, kg, PRN Abnormal Lab Result, For NON-ICU Patients Only., Start date: 07/10/15 10:15:00 CDT, Duration: 30 day, Stop date: 08/09/15 10:14:00 CDTNotes: WASTE: F/P - Sink; E - Municipal Trash Bin No Longer Active 07/10/2015 [facility] potassium phosphate + Sodium Chloride 0.9% IV 250 mL 30 mmol, 10 mL, Route: IVPB, PRN, Dosing Weight 136.96, kg, PRN Abnormal Lab Result, For NON-ICU Patients Only., Start date: 07/10/15 10:15:00 CDT, Duration: 30 day, Stop date: 08/09/15 10:14:00 CDTNotes: (Same as: K Phosphate.) 1 mMol phoshate has 1.47 mEq potassium Infuse over 4 hours No Longer Active 07/10/2015 [facility] potassium chloride 10 mEq, 100 mL, Route: IVPB, Drug form: INJ, PRN, Dosing Weight 136.96, kg, PRN Abnormal Lab Result, For NON-ICU Patients Only, Start date: 07/10/15 10:15:00 CDT, Duration: 30 day, Stop date: 08/09/15 10:14:00 CDTNotes: Infuse at a rate of 10 mEq/hr. (Same as: KCL) No Longer Active 07/10/2015 [facility] potassium phosphate-sodium phosphate 250 mg-278 mg-164 mg oral powder 2 pkt, Route: PO, Drug Form: PDR/REC, Dosing Weight 136.96, kg, PRN, PRN Abnormal Lab Result, For NON-ICU Patients Only, Start date: 07/10/15 10:15:00 CDT, Duration: 30 day, Stop date: 08/09/15 10:14:00 CDTNotes: (Same as: Neutra-Phos) Each 1.25 gm pkt has 250mg phosphorous. Mix w/2.5oz water and stir. No Longer Active 07/10/2015 [facility] potassium chloride 10 mEq, 100 mL, Route: IVPB, Drug form: INJ, Q1H, Dosing Weight 136.96, kg, Total Dose=40 mEq; Peripheral Line, Start date: 07/10/15 8:00:00 CDT, Duration: 4 doses or times, Stop date: 07/10/15 11:00:00 CDTNotes: Infuse at a rate of 10 mEq/hr. (Same as: KCL) Inactive 07/10/2015 [facility] potassium phosphate + Sodium Chloride 0.9% IV 250 mL 30 mmol, 10 mL, Route: IVPB, ONCE, Dosing Weight 136.96, kg, Start date: 07/10/15 7:41:00 CDT, Stop date: 07/10/15 7:41:00 CDTNotes: (Same as: K Phosphate.) 1 mMol phoshate has 1.47 mEq potassium Infuse over 4 hours Inactive 07/10/2015 [facility] Levaquin 500 mg, 100 mL, Route: IVPB, Drug form: SOLN, [id number], Dosing Weight 136.96, kg, Priority: STAT, Start date: 07/10/15 4:16:00 CDT, Duration: 30 day, Stop date: 08/08/15 4:16:00 CDTNotes: (Same as:Levaquin) No Longer Active 07/10/2015 [facility] Furosemide 40 mg, PO, Daily, 0 Refill(s) Active 07/10/2015 [facility] Losartan 100 mg, PO, Daily, 0 Refill(s) Active 07/10/2015 [facility] metoprolol extended release 50 mg, PO, Daily, 0 Refill(s) Active 07/10/2015 [facility] Zosyn + Sodium Chloride 0.9% IV 100 mL 3.375 gm, Route: IVPB, ABXQ8H, Start date: 07/09/15 20:00:00 CDT, Duration: 30 day, Stop date: 08/08/15 9:00:00 CDTNotes: (Same as: Zosyn) Dosing based on Piperacillin component MEDICATION WASTE Product Size: 3375 mg Product Wasted: ___ mg No Longer Active 07/10/2015 [facility] Zosyn 4.5 gm, Route: IV, Drug form: INJ, ABXQ6H, Dosing Weight 136.96, kg, Start date: 07/09/15 16:00:00 CDT, Duration: 30 day, Stop date: 08/08/15 10:00:00 CDT, Substitute Allowed No, > 40 kg; Pediatric Dosing Inactive 07/09/2015 [facility] Bentyl 20 mg, 1 tab, Route: PO, Drug form: TAB, QID, Dosing Weight 135, kg, Start date: 07/09/15 9:00:00 CDT, Duration: 30 day, Stop date: 08/07/15 21:00:00 CDTNotes: (Same as: Bentyl) Inactive 07/09/2015 [facility] heparin 7,500 unit, 1.5 mL, Route: SUB-Q, Drug form: INJ, Q8H-06, Dosing Weight 135, kg, Consider for obese patients, Start date: 07/09/15 6:00:00 CDT, Duration: 30 day, Stop date: 08/07/15 22:00:00 CDTNotes: porcine heparin No Longer Active 07/09/2015 [facility] Zosyn 3.375 gm, Route: IVPB, ABXQ8H, Dosing Weight 135, kg, Start date: 07/09/15 5:00:00 CDT, Duration: 30 day, Stop date: 08/07/15 21:00:00 CDTNotes: (Same as: Zosyn) Dosing based on Piperacillin component MEDICATION WASTE Product Size: 3375 mg Product Wasted: ___ mg Inactive 07/09/2015 [facility] Flagyl 500 mg, 100 mL, Route: IVPB, Drug form: INJ, ABXQ8H, Dosing Weight 135, kg, Start date: 07/09/15 3:00:00 CDT, Duration: 30 day, Stop date: 08/07/15 19:00:00 CDTNotes: (Same as: Flagyl) Avoid alcohol. No Longer Active 07/09/2015 [facility] Protonix 40 mg, Route: IVP, Drug form: INJ, BID, Dosing Weight 135, kg, Patient is NPO, Priority: STAT, Start date: 07/09/15 2:55:00 CDT, Duration: 30 day, Stop date: 08/07/15 17:00:00 CDTNotes: For IV push isaiah nstitute with 10 ml 0.9% sodium chloride and push over 2 minutes. (Same as: Protonix) No Longer Active 07/09/2015 [facility] tramadol hydrochloride 50 MG Oral Tablet 50 mg, 1 tab, Route: PO, Drug form: TAB, Q6H, Dosing Weight 135, kg, PRN Pain Score 4-6, Start date: 07/09/15 2:55:00 CDT, Duration: 30 day, Stop date: 08/08/15 2:54:00 CDTNotes: Not to exceed 400mg/day. (Same As: Ultram) No Longer Active 07/09/2015 [facility] Gas-X Ultra Softgels 160 mg, 2 tab, Route: PO, Drug form: CHEWTAB, Q4H, Dosing Weight 135, kg, PRN Gas, Start date: 07/09/15 2:55:00 CDT, Duration: 30 day, Stop date: 08/08/15 2:54:00 CDTNotes: (Same as: Mylicon) No Longer Active 07/09/2015 [facility] Sodium Chloride 0.154 MEQ/ML Injectable Solution 1,000 mL, Rate: 125 ml/hr, Infuse over: 8 hr, Route: IV, Dosing Weight 135 kg, Total Volume: 1,000, Start date: 07/09/15 2:55:00 CDT, Duration: 30 day, Stop date: 08/08/15 2:54:00 CDT No Longer Active 07/09/2015 [facility] GI cocktail 30 ml, Route: PO, Drug Form: SUSP, Dosing Weight 135, kg, Q4H, PRN Indigestion, NOW, Start date: 07/09/15 2:55:00 CDT, Duration: 30 day, Stop date: 08/08/15 2:54:00 CDT, DYSPEPSIANotes: G.I. Cocktail=antacid with simethicone 22.5 mL - lidocaine viscous 7.5 mL No Longer Active 07/09/2015 [facility] Hydralazine 10 mg, 0.5 mL, Route: IVP, Drug form: INJ, Q6H, Dosing Weight 135, kg, PRN Elevated BP, Start date: 07/09/15 2:55:00 CDT, Duration: 30 day, Stop date: 08/08/15 2:54:00 CDT, SBP>/=160 OR DBP>/=90Notes: (Same as: Apresoline) Push over 5 minutes No Longer Active 07/09/2015 [facility] Docusate Sodium 100 MG Oral Capsule [Colace] 100 mg, 1 cap, Route: PO, Drug form: CAP, BID, Dosing Weight 135, kg, PRN Constipation, Start date: 07/09/15 2:55:00 CDT, Duration: 30 day, Stop date: 08/08/15 2:54:00 CDTNotes: (Same as: Colace) (Do Not Crush) No Longer Active 07/09/2015 [facility] Morphine 2 mg, 1 mL, Route: IVP, Drug form: INJ, Q4H, Dosing Weight 135, kg, PRN Pain Score 4-6, Start date: 07/09/15 2:55:00 CDT, Duration: 3 day, Stop date: 07/12/15 2:54:00 CDTNotes: (Same as:MORPhine Sulfate) No Longer Active 07/09/2015 [facility] Ondansetron 4 mg, 2 mL, Route: IVP, Drug form: INJ, Q4H, Dosing Weight 135, kg, PRN Nausea & Vomiting, Start date: 07/09/15 2:55:00 CDT, Duration: 30 day, Stop date: 08/08/15 2:54:00 CDTNotes: (Same as: Zofran) MEDICATION WASTE Product Size: 4 mg Product Wasted: ___ mg No Longer Active 07/09/2015 [facility] Acetaminophen 650 mg, 2 tab, Route: PO, Drug form: TAB, Q4H, Dosing Weight 135, kg, PRN Pain 1-3/Temp > 100.4 F, Start date: 07/09/15 2:55:00 CDT, Duration: 30 day, Stop date: 08/08/15 2:54:00 CDTNotes: Do not exc eed 4 gm/day. (Same as: Tylenol) No Longer Active 07/09/2015 [facility] Zosyn 3.375 gm, Route: IVPB, Drug form: PDR/INJ, ONCE, Dosing Weight 135, kg, Priority: STAT, Start date: 07/09/15 2:41:00 CDT, Stop date: 07/09/15 2:41:00 CDT Inactive 07/09/2015 [facility] Saline Flush 0.9% 10 mL, Route: IVP, Drug Form: INJ, Dosing Weight 135, kg, PRN, PRN Line Flush, Start date: 07/08/15 21:50:00 CDT, Duration: 30 day, Stop date: 08/07/15 21:49:00 CDTNotes: (Same as: BD Posiflush) No Longer Active 07/09/2015 [facility] Iohexol 50 mL, Route: PO, Drug Form: SOLN, Dosing Weight 135, kg, ONCE, Start date: 07/08/15 21:50:00 CDT, Stop date: 07/08/15 21:50:00 CDTNotes: (Same as:Omnipaque 240) 12,000mg/50ml WASTE: F/P - Black; E - Municipal Trash Bin No Longer Active 07/09/2015 [facility] Azithromycin 250 MG Oral Tablet azithromycin 250 mg tablet TAKE 2 TABLETS (500 MG) BY ORAL ROUTE ONCE DAILY FOR 1 DAY THEN 1 TABLET (250 MG) BY ORAL ROUTE ONCE DAILY FOR [address] [facility] Furosemide 40 MG Oral Tablet furosemide 40 mg tablet TAKE 1 TABLET BY MOUTH EVERY DAY Active [facility] Ibuprofen 800 MG Oral Tablet ibuprofen [address] [facility] Albuterol 0.833 MG/ML / Ipratropium [place] 0.167 MG/ML Inhalant Solution ipratropium-albuterol 0.5 mg-3 mg(2.5 mg base)/3 mL nebulization soln Active [facility] Losartan Potassium 100 MG Oral Tablet losartan [address] [facility] Methocarbamol 750 MG Oral Tablet methocarbamol [address] [facility] 24 HR metoprolol succinate 50 MG Extended Release Oral Tablet metoprolol succinate ER 50 mg tablet,extended release 24 hr TAKE 1 TABLET BY MOUTH EVERY DAY Active [facility] Omeprazole 20 MG Delayed Release Oral Capsule omeprazole 20 mg capsule,delayed release TAKE 1 CAPSULE BY MOUTH EVERY DAY Active [facility] Microencapsulated Potassium Chloride 20 MEQ Extended Release Oral Tablet potassium chloride ER 20 mEq tablet,extended release(part/cryst) Active [facility] Prednisone 20 MG Oral Tablet prednisone 20 mg tablet Take 2 tablets every day by oral route in the morning for [address] [facility] 200 ACTUAT Albuterol 0.09 MG/ACTUAT Metered Dose Inhaler [ProAir] ProAir HFA 90 mcg/actuation aerosol inhaler Inhale 2 puffs every 4 hours by inhalation route. Active [facility] Budesonide 0.16 MG/ACTUAT / formoterol fumarate 0.0045 MG/ACTUAT Metered Dose Inhaler Symbicort 160 mcg-4.5 mcg/actuation HFA aerosol inhaler Active [facility] Dexlansoprazole (Dexilant) 60 Mg Felix. Active THERAPEUTIC INTERCHANGE WITH PROTONIX PER [facility] Losartan Potassium 100 Mg Tablet Daily Active [facility] Allergies, Adverse Reactions, Alerts Substance Category Reaction Severity Reaction type Status Date Reported Comments Source Iodinated Contrast- Oral and Iv Dye Allergy to substance 09/19/2015 [facility] Iodinated Contrast- Oral and IV Dye SWELLING Severe Allergy to Substance Active 08/22/2018 [facility] iodinated radiocontrast dyes Assertion Drug allergy Active [facility] Immunizations Immunization Date Given Site Status Last Updated Comments Source influenza, high dose seasonal 12/20/[address] [facility] pneumococcal conjugate PCV 13 05/14/[address] [facility] influenza, injectable, quadrivalent 12/06/[address] [facility] zoster 08/23/[address] [facility] Results Order Name Results Value Reference Range Date Interpretation Comments Source Urine color determination YELLOW YELLOW 08/22/2018 [facility] Urine clarity SL CLOUDY CLEAR 08/22/2018 [facility] Specific gravity of Urine by Test strip <=1.005 1.010 - 1.025 08/22/2018 [facility] Urine pH measurement by automated test strip 6.5 5 - 7 08/22/2018 [facility] Urine leukocyte esterase detection by automated test strip TRACE NEGATIVE 08/22/2018 [facility] Urine nitrite detection by automated test strip NEGATIVE NEGATIVE 08/22/2018 [facility] Urine protein detection by automated test strip NEGATIVE NEGATIVE 08/22/2018 [facility] Urine glucose detection by automated test strip NEGATIVE NEGATIVE 08/22/2018 [facility] Urine ketones detection by automated test strip NEGATIVE NEGATIVE 08/22/2018 [facility] Urine urobilinogen measurement by test strip (mass/volume) 4 0.2 - 1 08/22/2018 [facility] Urine total bilirubin detection NEGATIVE NEGATIVE 08/22/2018 [facility] Urine erythrocytes detection 1+ NEGATIVE 08/22/2018 [facility] Automated urine sediment leukocyte count by microscopy (number/high power field) 6-10 0 - 5 08/22/2018 [facility] Erythrocytes detection in urine sediment by light microscopy 6-10 0 - 5 08/22/2018 [facility] Bacteria detection in urine sediment by light microscopy MODERATE NONE 08/22/2018 [facility] Epithelial cells detection in urine sediment by light microscopy MANY NONE 08/22/2018 [facility] Transitional cells detection in urine sediment by light microscopy FEW NONE 08/22/2018 [facility] Renal epithelial cells detection in urine sediment by light microscopy FEW NONE 08/22/2018 [facility] Serum or plasma urea nitrogen measurement (mass/volume) 10 7 - 26 07/21/2018 [facility] Serum or plasma creatinine measurement (mass/volume) 0.80 0.57 - 1.11 07/21/2018 [facility] Serum or plasma urea nitrogen/creatinine mass ratio 13 6 - 25 07/21/2018 [facility] Estimated glomerular filtration rate (GFR) determination > 60 60 07/21/2018 [facility] Serum or plasma sodium measurement (moles/volume) 135 136 - 145 06/24/2018 [facility] Serum or plasma potassium measurement (moles/volume) 3.9 3.5 - 5.1 06/24/2018 [facility] Serum or plasma chloride measurement (moles/volume) 101 98 - 107 06/24/2018 [facility] Serum or plasma carbon dioxide, total measurement (moles/volume) 29 22 - 29 06/24/2018 [facility] Serum or plasma anion gap 8.9 8 - 16 06/24/2018 [facility] Glucose measurement 122 74 - 118 06/24/2018 [facility] Serum or plasma calcium measurement (mass/volume) 9.8 8.4 - 10.2 06/24/2018 [facility] Serum or plasma total bilirubin measurement (mass/volume) 0.5 0.2 - 1.2 06/24/2018 [facility] Aspartate Amino Transf (AST/SGOT) 19 5 - 34 06/24/2018 [facility] Serum or plasma alanine aminotransferase measurement (enzymatic activity/volume) 20 0 - 55 06/24/2018 [facility] Serum or plasma protein measurement (mass/volume) 8.1 6.5 - 8.1 06/24/2018 [facility] Serum or plasma albumin measurement (mass/volume) 3.4 3.5 - 5.0 06/24/2018 [facility] Plasma globulin measurement (mass/volume) 4.7 2.3 - 3.5 06/24/2018 [facility] Serum or plasma albumin/globulin mass ratio 0.7 0.8 - 2.0 06/24/2018 [facility] Serum or plasma alkaline phosphatase measurement (enzymatic activity/volume) 103 40 - 150 06/24/2018 [facility] Blood leukocytes automated count (number/volume) 7.81 4.8 - 10.8 05/28/2018 [facility] Blood erythrocytes automated count (number/volume) 4.47 3.6 - 5.1 05/28/2018 [facility] Blood hemoglobin measurement (moles/volume) 13.3 12.0 - 16.0 05/28/2018 [facility] Automated blood hematocrit (volume fraction) 41.0 34.2 - 44.1 05/28/2018 [facility] Automated erythrocyte mean corpuscular volume 91.7 81 - 99 05/28/2018 [facility] Automated erythrocyte mean corpuscular hemoglobin (mass per erythrocyte) 29.8 28 - 32 05/28/2018 [facility] Automated erythrocyte mean corpuscular hemoglobin concentration measurement (mass/volume) 32.4 31 - 35 05/28/2018 [facility] RDW BldCo-Rto 13.1 11.7 - 14.4 05/28/2018 [facility] Automated blood platelet count (count/volume) 216 140 - 360 05/28/2018 [facility] Automated blood segmented neutrophil count as percentage of total leukocytes 72.0 38.7 - 80.0 05/28/2018 [facility] Automated blood lymphocyte count as percentage ot total leukocytes 18.1 18.0 - 39.1 05/28/2018 [facility] Automated blood monocyte count as percentage of total leukocytes 6.9 4.4 - 11.3 05/28/2018 [facility] Automated blood eosinophil count as percentage of total leukocytes 2.0 0.0 - 6.0 05/28/2018 [facility] Automated blood basophil count as percentage of total leukocytes 0.6 0.0 - 1.0 05/28/2018 [facility] IM GRANULOCYTES % 0.4 0.0 - 1.0 05/28/2018 [facility] Automated blood neutrophil count 5.6 2.1 - 6.9 05/28/2018 [facility] Blood lymphocytes count (number/volume) 1.4 1.0 - 3.2 05/28/2018 [facility] Blood monocytes automated count (number/volume) 0.5 0.2 - 0.8 05/28/2018 [facility] Automated blood eosinophil count 0.2 0.0 - 0.4 05/28/2018 [facility] Automated blood basophil count (count/volume) 0.1 0.0 - 0.1 05/28/2018 [facility] Absolute Immature Granulocyte (auto 0.03 0 - 0.1 05/28/2018 [facility] CHEM PANEL Glucose Lvl 105 70 - 99 02/18/2017 [facility] CHEM PANEL CO2 32 24 - 32 02/18/2017 [facility] CHEM PANEL eGFR 81 02/18/2017 Result Comment: The eGFR is calculated [...] should be multiplied by the estimated BMI. [facility] CHEM PANEL Calcium Lvl 8.6 8.5 - 10.5 02/18/2017 [facility] CHEM PANEL Chloride Lvl 104 95 - 109 02/18/2017 [facility] CHEM PANEL Potassium Lvl 3.6 3.5 - 5.1 02/18/2017 [facility] CHEM PANEL Sodium Lvl 142 135 - 145 02/18/2017 [facility] CHEM PANEL Creatinine Lvl 0.76 0.50 - 1.40 02/18/2017 [facility] CHEM PANEL BUN 24 7 - 22 02/18/2017 [facility] CHEM PANEL AGAP 9.6 10.0 - 20.0 02/18/2017 [facility] HEMATOLOGY MPV 11.2 7.4 - 10.4 02/18/2017 [facility] HEMATOLOGY Hct 37.6 36.0 - 48.0 02/18/2017 [facility] HEMATOLOGY Hgb 12.7 12.0 - 16.0 02/18/2017 [facility] HEMATOLOGY WBC 7.5 3.7 - 10.4 02/18/2017 [facility] HEMATOLOGY RBC 4.21 4.20 - 5.40 02/18/2017 [facility] HEMATOLOGY MCHC 33.8 32.0 - 36.0 02/18/2017 [facility] HEMATOLOGY MCH 30.2 27.0 - 31.0 02/18/2017 [facility] HEMATOLOGY Platelet 161 133 - 450 02/18/2017 [facility] HEMATOLOGY RDW 13.6 11.5 - 14.5 02/18/2017 [facility] HEMATOLOGY MCV 89.3 80.0 - 98.0 02/18/2017 [facility] HEMATOLOGY Segs-Bands # 5.0 1.5 - 8.1 02/18/2017 [facility] HEMATOLOGY Lymphocytes # 1.6 1.0 - 5.5 02/18/2017 [facility] HEMATOLOGY Monocytes # 0.6 0.0 - 0.8 02/18/2017 [facility] HEMATOLOGY Eosinophils # 0.2 0.0 - 0.5 02/18/2017 [facility] HEMATOLOGY Basophils 0.6 0.0 - 1.0 02/18/2017 [facility] HEMATOLOGY Lymphocytes 21.5 20.0 - 40.0 02/18/2017 [facility] HEMATOLOGY Eosinophils 2.3 0.0 - 4.0 02/18/2017 [facility] HEMATOLOGY Monocytes 8.5 2.0 - 12.0 02/18/2017 [facility] HEMATOLOGY Segs 67.1 45.0 - 75.0 02/18/2017 [facility] CARDIAC ENZYMES Troponin-T <0.010 0.000 - 0.100 02/18/2017 [facility] CARDIAC ENZYMES Troponin-I <0.02 0.00 - 0.40 02/18/2017 [facility] CARDIAC ENZYMES Total CK 43 12 - 191 02/18/2017 [facility] CARDIAC ENZYMES Troponin-T <0.010 0.000 - 0.100 02/17/2017 [facility] CARDIAC ENZYMES Troponin-I <0.02 0.00 - 0.40 02/17/2017 [facility] CARDIAC ENZYMES Total CK 43 12 - 191 02/17/2017 [facility] LIPIDS LDL (Calculated) 102 <=99 mg/dL 02/17/2017 [facility] LIPIDS CHD Risk 3.53 3.90 - 5.80 02/17/2017 [facility] LIPIDS Chol 180 <=199 mg/dL 02/17/2017 [facility] LIPIDS HDL 51 >=61 mg/dL 02/17/2017 [facility] LIPIDS Trig 133 <=149 mg/dL 02/17/2017 [facility] LIPIDS VLDL 27 02/17/2017 [facility] CARDIAC ENZYMES proBNP 251 0 - 125 02/17/2017 [facility] CARDIAC ENZYMES Troponin-I <0.02 0.00 - 0.40 02/17/2017 [facility] CARDIAC ENZYMES Total CK 52 12 - 191 02/17/2017 [facility] CHEM PANEL eGFR 71 02/17/2017 Result Comment: The eGFR is calculated [...] should be multiplied by the estimated BMI. [facility] CHEM PANEL Sodium Lvl 139 135 - 145 02/17/2017 [facility] CHEM PANEL Potassium Lvl 3.7 3.5 - 5.1 02/17/2017 [facility] CHEM PANEL CO2 33 24 - 32 02/17/2017 [facility] CHEM PANEL Chloride Lvl 100 95 - 109 02/17/2017 [facility] CHEM PANEL Calcium Lvl 9.1 8.5 - 10.5 02/17/2017 [facility] CHEM PANEL Glucose Lvl 99 70 - 99 02/17/2017 [facility] CHEM PANEL BUN 23 7 - 22 02/17/2017 [facility] CHEM PANEL Creatinine Lvl 0.85 0.50 - 1.40 02/17/2017 [facility] CHEM PANEL AGAP 9.7 10.0 - 20.0 02/17/2017 [facility] HEMATOLOGY RBC 4.66 4.20 - 5.40 02/17/2017 [facility] HEMATOLOGY Hgb 13.6 12.0 - 16.0 02/17/2017 [facility] HEMATOLOGY Hct 41.7 36.0 - 48.0 02/17/2017 [facility] HEMATOLOGY MCV 89.4 80.0 - 98.0 02/17/2017 [facility] HEMATOLOGY MCH 29.3 27.0 - 31.0 02/17/2017 [facility] HEMATOLOGY MCHC 32.7 32.0 - 36.0 02/17/2017 [facility] HEMATOLOGY WBC 7.2 3.7 - 10.4 02/17/2017 [facility] HEMATOLOGY RDW 13.2 11.5 - 14.5 02/17/2017 [facility] HEMATOLOGY Platelet 200 133 - 450 02/17/2017 [facility] HEMATOLOGY MPV 12.1 7.4 - 10.4 02/17/2017 [facility] HEMATOLOGY Segs-Bands # 5.3 1.5 - 8.1 02/17/2017 [facility] HEMATOLOGY Eosinophils # 0.2 0.0 - 0.5 02/17/2017 [facility] HEMATOLOGY Monocytes 5.4 2.0 - 12.0 02/17/2017 [facility] HEMATOLOGY Lymphocytes # 1.3 1.0 - 5.5 02/17/2017 [facility] HEMATOLOGY Basophils 0.3 0.0 - 1.0 02/17/2017 [facility] HEMATOLOGY Monocytes # 0.4 0.0 - 0.8 02/17/2017 [facility] HEMATOLOGY Eosinophils 2.1 0.0 - 4.0 02/17/2017 [facility] HEMATOLOGY Lymphocytes 18.2 20.0 - 40.0 02/17/2017 [facility] HEMATOLOGY Segs 74.0 45.0 - 75.0 02/17/2017 [facility] CBC W Auto Differential panel - Blood white blood cell count 8.3 3.8 - 10.8 10/19/2016 [facility] W Auto Differential panel - Blood red blood cell count 4.50 3.80 - 5.10 10/19/2016 [facility] W Auto Differential panel - Blood hemoglobin 13.4 11.7 - 15.5 10/19/2016 [facility] W Auto Differential panel - Blood hematocrit 40.6 35.0 - 45.0 10/19/2016 [facility] W Auto Differential panel - Blood MCV 90.2 80.0 - 100.0 10/19/2016 [facility] W Auto Differential panel - Blood MCH 29.8 27.0 - 33.0 10/19/2016 [facility] W Auto Differential panel - Blood MCHC 33.1 32.0 - 36.0 10/19/2016 [facility] W Auto Differential panel - Blood RDW 14.2 11.0 - 15.0 10/19/2016 [facility] W Auto Differential panel - Blood platelet count 197 140 - 400 10/19/2016 [facility] W Auto Differential panel - Blood MPV 11.5 7.5 - 12.5 10/19/2016 [facility] W Auto Differential panel - Blood absolute neutrophils 5976 1500 - 7800 10/19/2016 [facility] W Auto Differential panel - Blood absolute lymphocytes 1411 850 - 3900 10/19/2016 [facility] W Auto Differential panel - Blood absolute monocytes 739 200 - 950 10/19/2016 [facility] W Auto Differential panel - Blood absolute eosinophils 125 15 - 500 10/19/2016 [facility] W Auto Differential panel - Blood absolute basophils 50 0 - 200 10/19/2016 [facility] W Auto Differential panel - Blood neutrophils 72.0 10/19/2016 [facility] W Auto Differential panel - Blood lymphocytes 17.0 10/19/2016 [facility] W Auto Differential panel - Blood monocytes 8.9 10/19/2016 [facility] W Auto Differential panel - Blood eosinophils 1.5 10/19/2016 CBC W Auto Differential panel - Blood basophils 0.6 10/19/2016 [facility] 2000 panel - Serum or Plasma glucose 90 65 - 99 10/19/2016 [facility] 2000 panel - Serum or Plasma urea nitrogen (BUN) 15 7 - 25 10/19/2016 [facility] 1999 panel - Serum or Plasma creatinine 0.73 0.50 - 0.99 10/19/2016 [facility] 1999 panel - Serum or Plasma eGFR non-afr. emirati 86 > or=60 10/19/2016 [facility] 1999 panel - Serum or Plasma eGFR 99 > or=60 10/19/2016 [facility] 1999 panel - Serum or Plasma BUN/creatinine ratio not applicable - 10/19/2016 [facility] Comprehensive metabolic 1999 panel - Serum or Plasma sodium 140 135 - 146 10/19/2016 [facility] 1999 panel - Serum or Plasma potassium 3.8 3.5 - 5.3 10/19/2016 [facility] 1999 panel - Serum or Plasma chloride 101 98 - 110 10/19/2016 [facility] 1999 panel - Serum or Plasma carbon dioxide 31 20 - 31 10/19/2016 [facility] 1999 panel - Serum or Plasma calcium 9.2 8.6 - 10.4 10/19/2016 [facility] 1999 panel - Serum or Plasma protein, total 7.7 6.1 - 8.1 10/19/2016 [facility] 1999 panel - Serum or Plasma albumin 3.8 3.6 - 5.1 10/19/2016 [facility] 1999 panel - Serum or Plasma globulin 3.9 1.9 - 3.7 10/19/2016 [facility] Comprehensive metabolic 1999 panel - Serum or Plasma albumin/globulin ratio 1.0 1.0 - 2.5 10/19/2016 [facility] 1999 panel - Serum or Plasma bilirubin, total 0.5 0.2 - 1.2 10/19/2016 [facility] 1999 panel - Serum or Plasma alkaline phosphatase 123 33 - 130 10/19/2016 [facility] 1999 panel - Serum or Plasma AST 13 10 - 35 10/19/2016 [facility] 1999 panel - Serum or Plasma ALT 11 6 - 29 10/19/2016 Lipid 1995 panel - Serum or Plasma cholesterol, total 179 125 - 200 10/19/2016 Lipid 1995 panel - Serum or Plasma HDL cholesterol 47 > or=46 10/19/2016 Lipid 1995 panel - Serum or Plasma triglycerides 140 <150 10/19/2016 Lipid 1995 panel - Serum or Plasma LDL-cholesterol 104 <130 10/19/2016 Lip[facility] 1995 panel - Serum or Plasma chol/HDLC ratio 3.8 < or=5.0 10/19/2016 Lip[facility] 1995 panel - Serum or Plasma non HDL cholesterol 132 10/19/2016 Thyrotropin [Units/volume] in Serum or Plasma TSH 1.40 0.40 - 4.50 10/19/2016 Thyroxine (T4) free [Mass/volume] in Serum or Plasma T4, free 1.2 0.8 - 1.8 10/19/2016 [facility] W Auto Differential panel - Blood Leukocytes [#/volume] in Blood by Automated count 7.0 3.8 - 10.8 05/15/2016 CBC W Auto Differential panel - Blood Erythrocytes [#/volume] in Blood by Automated count 4.22 3.80 - 5.10 05/15/2016 CBC W Auto Differential panel - Blood Hemoglobin [Mass/volume] in Blood 12.4 11.7 - 15.5 05/15/2016 CBC W Auto Differential panel - Blood Hematocrit [Volume Fraction] of Blood by Automated count 38.3 35.0 - 45.0 05/15/2016 CBC W Auto Differential panel - Blood Erythrocyte mean corpuscular volume [Entitic volume] by Automated count 90.8 80.0 - 100.0 05/15/2016 CBC W Auto Differential panel - Blood Erythrocyte mean corpuscular hemoglobin [Entitic mass] by Automated count 29.4 27.0 - 33.0 05/15/2016 CBC W Auto Differential panel - Blood Erythrocyte mean corpuscular hemoglobin concentration [Mass/volume] by Automated count 32.4 32.0 - 36.0 05/15/2016 CBC W Auto Differential panel - Blood Erythrocyte distribution width [Ratio] by Automated count 14.4 11.0 - 15.0 05/15/2016 CBC W Auto Differential panel - Blood Platelets [#/volume] in Blood by Automated count 188 140 - 400 05/15/2016 CBC W Auto Differential panel - Blood Platelet mean volume [Entitic volume] in Blood by Jaden 12.6 7.5 - 12.5 05/15/2016 [facility] CBC W Auto Differential panel - Blood Neutrophils [#/volume] in Blood by Automated count 5089 1500 - 7800 05/15/2016 CBC W Auto Differential panel - Blood Lymphocytes [#/volume] in Blood by Automated count 1309 850 - 3900 05/15/2016 CBC W Auto Differential panel - Blood Monocytes [#/volume] in Blood by Automated count 434 200 - 950 05/15/2016 [facility] W Auto Differential panel - Blood Eosinophils [#/volume] in Blood by Automated count 140 15 - 500 05/15/2016 CBC W Auto Differential panel - Blood Basophils [#/volume] in Blood by Automated count 28 0 - 200 05/15/2016 [facility] W Auto Differential panel - Blood Neutrophils/100 leukocytes in Blood by Automated count 72.7 05/15/2016 CBC W Auto Differential panel - Blood Lymphocytes/100 leukocytes in Blood by Automated count 18.7 05/15/2016 CBC W Auto Differential panel - Blood Monocytes/100 leukocytes in Blood by Automated count 6.2 05/15/2016 CBC W Auto Differential panel - Blood Eosinophils/100 leukocytes in Blood by Automated count 2.0 05/15/2016 CBC W Auto Differential panel - Blood Basophils/100 leukocytes in Blood by Automated count 0.4 05/15/2016 [facility] 1999 panel - Serum or Plasma Glucose [Mass/volume] in Serum or Plasma 119 65 - 99 05/15/2016 [facility] Comprehensive metabolic 1999 panel - Serum or Plasma Urea nitrogen [Mass/volume] in Serum or Plasma 25 7 - 25 05/15/2016 [facility] 1999 panel - Serum or Plasma Creatinine [Mass/volume] in Serum or Plasma 0.81 0.50 - 0.99 05/15/2016 [facility] 1999 panel - Serum or Plasma Glomerular filtration rate/1.73 sq M.predicted by Creatinine-based formula (MDRD) 76 > or=60 05/15/2016 [facility] 1999 panel - Serum or Plasma Glomerular filtration rate/1.73 sq M predicted among blacks by Creatinine-based formula (MDRD) 88 > or=60 05/15/2016 1999 panel - Serum or Plasma Urea nitrogen/Creatinine [Mass Ratio] in Serum or Plasma not applicable 6 - 05/15/2016 [facility] metabolic 1999 panel - Serum or Plasma Sodium [Moles/volume] in Serum or Plasma 139 135 - 146 05/15/2016 metabolic 1999 panel - Serum or Plasma Potassium [Moles/volume] in Serum or Plasma 4.5 3.5 - 5.3 05/15/2016 metabolic 1999 panel - Serum or Plasma Chloride [Moles/volume] in Serum or Plasma 101 98 - 110 05/15/2016 metabolic 1999 panel - Serum or Plasma Carbon dioxide, total [Moles/volume] in Serum or Plasma 31 20 - 31 05/15/2016 metabolic 1999 panel - Serum or Plasma Calcium [Mass/volume] in Serum or Plasma 8.6 8.6 - 10.4 05/15/2016 1999 panel - Serum or Plasma Protein [Mass/volume] in Serum or Plasma 7.1 6.1 - 8.1 05/15/2016 metabolic 1999 panel - Serum or Plasma Albumin [Mass/volume] in Serum or Plasma 3.6 3.6 - 5.1 05/15/2016 metabolic 1999 panel - Serum or Plasma Globulin [Mass/volume] in Serum by calculation 3.5 1.9 - 3.7 05/15/2016 1999 panel - Serum or Plasma Albumin/Globulin [Mass Ratio] in Serum or Plasma 1.0 1.0 - 2.5 05/15/2016 metabolic 1999 panel - Serum or Plasma Bilirubin.total [Mass/volume] in Serum or Plasma 0.5 0.2 - 1.2 05/15/2016 metabolic 1999 panel - Serum or Plasma Alkaline phosphatase [Enzymatic activity/volume] in Serum or Plasma 113 33 - 130 05/15/2016 metabolic 1999 panel - Serum or Plasma Aspartate aminotransferase [Enzymatic activity/volume] in Serum or Plasma 11 10 - 35 05/15/2016 metabolic 1999 panel - Serum or Plasma Alanine aminotransferase [Enzymatic activity/volume] in Serum or Plasma 10 6 - 29 05/15/2016 Hemoglobin A1c/Hemoglobin.total in Blood Hemoglobin A1c/Hemoglobin.total in Blood 5.8 <5.7 05/15/2016 [facility] Lipid 1995 panel - Serum or Plasma Cholesterol [Mass/volume] in Serum or Plasma 170 125 - 200 05/15/2016 Lipid 1995 panel - Serum or Plasma Cholesterol in HDL [Mass/volume] in Serum or Plasma 48 > or=46 05/15/2016 Lipid 1995 panel - Serum or Plasma Triglyceride [Mass/volume] in Serum or Plasma 80 <150 05/15/2016 Lipid 1995 panel - Serum or Plasma Cholesterol in LDL [Mass/volume] in Serum or Plasma by calculation 106 <130 05/15/2016 Lipid 1995 panel - Serum or Plasma Cholesterol.total/Cholesterol.in HDL [Mass ratio] in Serum or Plasma 3.5 < or=5.0 05/15/2016 Lipid 1995 panel - Serum or Plasma Cholesterol non HDL [Mass/volume] in Serum or Plasma 122 05/15/2016 CHEM PANEL Magnesium Lvl 1.9 1.8 - 2.4 07/11/2015 [facility] CHEM PANEL Phosphorus 1.7 2.5 - 4.5 07/11/2015 [facility] ELECTROLYTES AGAP 10.5 10.0 - 20.0 07/11/2015 [facility] ELECTROLYTES eGFR 88 07/11/2015 Result Comment: The eGFR is calculated [...] should be multiplied by the estimated BMI. [facility] ELECTROLYTES Potassium Lvl 3.5 3.5 - 5.1 07/11/2015 [facility] ELECTROLYTES Sodium Lvl 142 135 - 145 07/11/2015 [facility] ELECTROLYTES Creatinine Lvl 0.72 0.50 - 1.40 07/11/2015 [facility] ELECTROLYTES BUN 9 7 - 22 07/11/2015 [facility] ELECTROLYTES Glucose Lvl 105 70 - 99 07/11/2015 [facility] ELECTROLYTES CO2 25 24 - 32 07/11/2015 [facility] ELECTROLYTES Chloride Lvl 110 95 - 109 07/11/2015 [facility] ELECTROLYTES Calcium Lvl 7.9 8.5 - 10.5 07/11/2015 [facility] HEMATOLOGY MPV 10.9 7.4 - 10.4 07/11/2015 [facility] HEMATOLOGY MCH 28.9 27.0 - 31.0 07/11/2015 [facility] HEMATOLOGY MCHC 32.4 32.0 - 36.0 07/11/2015 [facility] HEMATOLOGY MCV 89.2 80.0 - 98.0 07/11/2015 [facility] HEMATOLOGY RDW 13.7 11.5 - 14.5 07/11/2015 [facility] HEMATOLOGY Platelet 147 133 - 450 07/11/2015 [facility] HEMATOLOGY Hgb 10.6 12.0 - 16.0 07/11/2015 [facility] HEMATOLOGY Hct 32.9 36.0 - 48.0 07/11/2015 [facility] HEMATOLOGY WBC 11.1 3.7 - 10.4 07/11/2015 [facility] HEMATOLOGY RBC 3.68 4.20 - 5.40 07/11/2015 [facility] HEMATOLOGY Lymphocytes # 1.2 1.0 - 5.5 07/11/2015 [facility] HEMATOLOGY Segs-Bands # 8.4 1.5 - 8.1 07/11/2015 [facility] HEMATOLOGY Basophils # 0.1 0.0 - 0.2 07/11/2015 [facility] HEMATOLOGY Monocytes # 1.3 0.0 - 0.8 07/11/2015 [facility] HEMATOLOGY Eosinophils # 0.1 0.0 - 0.5 07/11/2015 [facility] HEMATOLOGY Segs 75.6 45.0 - 75.0 07/11/2015 [facility] HEMATOLOGY Lymphocytes 10.8 20.0 - 40.0 07/11/2015 [facility] HEMATOLOGY Basophils 0.5 0.0 - 1.0 07/11/2015 [facility] HEMATOLOGY Monocytes 12.0 2.0 - 12.0 07/11/2015 [facility] HEMATOLOGY Eosinophils 1.1 0.0 - 4.0 07/11/2015 [facility] CHEM PANEL Procalcitonin Lvl 27.52 0.00 - 0.10 07/10/2015 Result Comment: Critical Result(s) called to OLEGARIO OJEDA at 07/10/2015 09:30 by ANASTACIO. Read back OK. [facility] CHEM PANEL Phosphorus 2.5 2.5 - 4.5 07/10/2015 [facility] CHEM PANEL Magnesium Lvl 2.0 1.8 - 2.4 07/10/2015 [facility] CHEM PANEL BUN 12 7 - 22 07/10/2015 [facility] CHEM PANEL Creatinine Lvl 0.88 0.50 - 1.40 07/10/2015 [facility] CHEM PANEL Glucose Lvl 121 70 - 99 07/10/2015 [facility] CHEM PANEL Sodium Lvl 139 135 - 145 07/10/2015 [facility] CHEM PANEL AGAP 10.8 10.0 - 20.0 07/10/2015 [facility] CHEM PANEL Chloride Lvl 103 95 - 109 07/10/2015 [facility] CHEM PANEL CO2 28 24 - 32 07/10/2015 [facility] CHEM PANEL Potassium Lvl 2.8 3.5 - 5.1 07/10/2015 Result Comment: Critical Result(s) called to ECTOR RAND at 07/10/2015 06:57 by ANASTACIO. Read back OK. [facility] CHEM PANEL Calcium Lvl 8.1 8.5 - 10.5 07/10/2015 [facility] CHEM PANEL eGFR 69 07/10/2015 Result Comment: The eGFR is calculated [...] should be multiplied by the estimated BMI. [facility] Platelet 154 133 - 450 07/10/2015 [facility] HEMATOLOGY MPV 11.3 7.4 - 10.4 07/10/2015 [facility] HEMATOLOGY Hgb 11.2 12.0 - 16.0 07/10/2015 [facility] RBC 3.84 4.20 - 5.40 07/10/2015 [facility] WBC 14.9 3.7 - 10.4 07/10/2015 [facility] MCHC 32.8 32.0 - 36.0 07/10/2015 [facility] Hct 34.2 36.0 - 48.0 07/10/2015 [facility] HEMATOLOGY MCV 88.9 80.0 - 98.0 07/10/2015 [facility] MCH 29.2 27.0 - 31.0 07/10/2015 [facility] RDW 13.8 11.5 - 14.5 07/10/2015 [facility] HEMATOLOGY Segs 86.0 45.0 - 75.0 07/10/2015 [facility] HEMATOLOGY Lymphocytes 4.2 20.0 - 40.0 07/10/2015 [facility] HEMATOLOGY Monocytes 9.4 2.0 - 12.0 07/10/2015 [facility] Lymphocytes # 0.6 1.0 - 5.5 07/10/2015 [facility] HEMATOLOGY Basophils 0.3 0.0 - 1.0 07/10/2015 [facility] HEMATOLOGY Eosinophils 0.1 0.0 - 4.0 07/10/2015 [facility] Segs-Bands # 12.8 1.5 - 8.1 07/10/2015 [facility] Monocytes # 1.4 0.0 - 0.8 07/10/2015 [facility] CHEM PANEL Globulin 4.8 2.0 - 4.0 07/09/2015 [facility] CHEM PANEL A/G Ratio 0.6 0.7 - 1.6 07/09/2015 [facility] CHEM PANEL AGAP 15.8 10.0 - 20.0 07/09/2015 [facility] CHEM PANEL B/C Ratio 18 6 - 25 07/09/2015 [facility] CHEM PANEL eGFR 59 07/09/2015 Result Comment: The eGFR is calculated [...] should be multiplied by the estimated BMI. [facility] CHEM PANEL Total Protein 7.8 6.4 - 8.4 07/09/2015 [facility] CHEM PANEL Albumin Lvl 3.0 3.5 - 5.0 07/09/2015 [facility] CHEM PANEL ALT 21 0 - 65 07/09/2015 [facility] CHEM PANEL AST 17 0 - 37 07/09/2015 [facility] CHEM PANEL Alk Phos 101 39 - 136 07/09/2015 [facility] CHEM PANEL Bili Total 0.9 0.2 - 1.3 07/09/2015 [facility] CHEM PANEL BUN 18 7 - 22 07/09/2015 [facility] CHEM PANEL Creatinine Lvl 1.00 0.50 - 1.40 07/09/2015 [facility] CHEM PANEL Sodium Lvl 139 135 - 145 07/09/2015 [facility] CHEM PANEL Potassium Lvl 3.8 3.5 - 5.1 07/09/2015 [facility] CHEM PANEL Chloride Lvl 102 95 - 109 07/09/2015 [facility] CHEM PANEL Calcium Lvl 8.3 8.5 - 10.5 07/09/2015 [facility] CHEM PANEL CO2 25 24 - 32 07/09/2015 [facility] CHEM PANEL Glucose Lvl 116 70 - 99 07/09/2015 [facility] CHEM PANEL Phosphorus 2.7 2.5 - 4.5 07/09/2015 [facility] CHEM PANEL Magnesium Lvl 1.9 1.8 - 2.4 07/09/2015 [facility] HEMATOLOGY Hgb 12.1 12.0 - 16.0 07/09/2015 [facility] HEMATOLOGY Hct 36.1 36.0 - 48.0 07/09/2015 [facility] HEMATOLOGY MCV 88.3 80.0 - 98.0 07/09/2015 [facility] HEMATOLOGY WBC 22.0 3.7 - 10.4 07/09/2015 [facility] HEMATOLOGY RBC 4.09 4.20 - 5.40 07/09/2015 [facility] HEMATOLOGY MPV 10.8 7.4 - 10.4 07/09/2015 [facility] HEMATOLOGY MCH 29.5 27.0 - 31.0 07/09/2015 [facility] HEMATOLOGY MCHC 33.4 32.0 - 36.0 07/09/2015 [facility] HEMATOLOGY RDW 14.2 11.5 - 14.5 07/09/2015 [facility] HEMATOLOGY Platelet 176 133 - 450 07/09/2015 [facility] HEMATOLOGY Lymphocytes # 0.7 1.0 - 5.5 07/09/2015 [facility] HEMATOLOGY Segs-Bands # 20.4 1.5 - 8.1 07/09/2015 [facility] HEMATOLOGY Monocytes # 0.8 0.0 - 0.8 07/09/2015 [facility] HEMATOLOGY Basophils 0.4 0.0 - 1.0 07/09/2015 [facility] HEMATOLOGY Eosinophils 0.3 0.0 - 4.0 07/09/2015 [facility] HEMATOLOGY Basophils # 0.1 0.0 - 0.2 07/09/2015 [facility] HEMATOLOGY Eosinophils # 0.1 0.0 - 0.5 07/09/2015 [facility] HEMATOLOGY Monocytes 3.6 2.0 - 12.0 07/09/2015 [facility] HEMATOLOGY Segs 92.7 45.0 - 75.0 07/09/2015 [facility] HEMATOLOGY Lymphocytes 3.0 20.0 - 40.0 07/09/2015 [facility] URINE AND STOOL UA Sq Epi Few /LPF Few /LPF 07/09/2015 [facility] URINE AND STOOL UA WBC 6-10 /HPF None Seen /HPF 07/09/2015 [facility] URINE AND STOOL Micro? Performed (07/09/15 2:12 AM) 07/09/2015 [facility] URINE AND STOOL UA RBC 3-5 /HPF 0 - 2 07/09/2015 [facility] URINE AND STOOL UA Mucus Few /LPF None Seen /LPF 07/09/2015 [facility] URINE AND STOOL UA Bacteria Moderate /HPF None Seen /HPF 07/09/2015 [facility] URINE AND STOOL UA Blood Small *ABN* (07/09/15 2:12 AM) Negative 07/09/2015 [facility] URINE AND STOOL UA Glucose Negative (07/09/15 2:12 AM) Negative 07/09/2015 [facility] URINE AND STOOL UA Ketones Negative *NA* (07/09/15 2:12 AM) Negative 07/09/2015 [facility] URINE AND STOOL UA Urobilinogen 1.0 0.1 - 1.0 07/09/2015 [facility] URINE AND STOOL UA Nitrite Positive *ABN* (07/09/15 2:12 AM) Negative 07/09/2015 [facility] URINE AND STOOL UA Leuk Est Small *ABN* (07/09/15 2:12 AM) Negative 07/09/2015 [facility] URINE AND STOOL UA Color Yellow *NA* (07/09/15 2:12 AM) Yellow 07/09/2015 [facility] URINE AND STOOL UA Turbidity Slight Cloudy (07/09/15 2:12 AM) Clear 07/09/2015 [facility] URINE AND STOOL UA pH 5.5 5.0 - 8.0 07/09/2015 [facility] URINE AND STOOL UA Protein Negative (07/09/15 2:12 AM) Negative 07/09/2015 [facility] URINE AND STOOL UA Spec Grav 1.010 <=1.030 07/09/2015 [facility] URINE AND STOOL UA Bili Negative *NA* (07/09/15 2:12 AM) Negative 07/09/2015 [facility] CARDIAC ENZYMES CK MB Index <1.1 0.0 - 2.5 07/09/2015 [facility] CARDIAC ENZYMES Troponin-I <0.02 0.00 - 0.40 07/09/2015 [facility] CARDIAC ENZYMES Total CK 47 12 - 191 07/09/2015 [facility] CARDIAC ENZYMES CK MB <0.5 0.5 - 3.6 07/09/2015 [facility] CHEM PANEL B/C Ratio 17 6 - 25 07/09/2015 [facility] CHEM PANEL AST 13 0 - 37 07/09/2015 [facility] CHEM PANEL Total Protein 8.0 6.4 - 8.4 07/09/2015 [facility] CHEM PANEL A/G Ratio 0.7 0.7 - 1.6 07/09/2015 [facility] CHEM PANEL Globulin 4.7 2.0 - 4.0 07/09/2015 [facility] CHEM PANEL Bili Total 0.9 0.2 - 1.3 07/09/2015 [facility] CHEM PANEL ALT 23 0 - 65 07/09/2015 [facility] CHEM PANEL Albumin Lvl 3.3 3.5 - 5.0 07/09/2015 [facility] CHEM PANEL Alk Phos 112 39 - 136 07/09/2015 [facility] CHEM PANEL Lipase Lvl 66 73 - 393 07/09/2015 [facility] ENDOCRINOLOGY S Preg Negative *NA* (07/08/15 11:29 PM) Negative 07/09/2015 [facility] HEMATOLOGY Basophils # 0.2 0.0 - 0.2 07/09/2015 [facility] Pathology Reports No Data Provided for This Section Diagnostic Reports Report Value Date Source Pelvis w/wo contrast MRI INDICATION: - R70.0 [...] recommended to complete the staging process. 03/26/2018 [facility] Abdomen w/wo contrast MRI INDICATION: - R70.0 [...] recommended to complete the staging process. 03/26/2018 [facility] Chest 2 views DX Clinical Indication: Chest pain Comparison: None FINDINGS: The PA and lateral chest radiographs shows normal lung volumes without interstitial or airspace opacities, pleural effusions or pneumothorax. The heart size and pulmonary vasculature are normal. The trachea is midline. There are no clinically significant osseous abnormalities noted. IMPRESSION: No chest radiographic evidence of acute cardiopulmonary disease. SL: [id number] 02/17/2017 [facility] Gallbladder scan [facility] EXAM:Nuclear Medicine Hepatobiliary Scan INDICATION: Abdominal pain, [...] gallbladder. No evidence for acute cholecystitis. SL: [id number] 07/10/2015 [facility] Abdomen complete US Study: Abdomen complete US [...] is normal in size, measuring 13.9 cm. [id number] steatosis of the liver is present. A [...] and left kidney are poorly assessed. SL: [id number] 07/08/2015 [facility] Abdomen/Pelvis wo IV contrast CT Study: Abdomen/Pelvis [...] are available for review. CT Radiation Dose: QUT=781 mGy-cm FINDINGS: Moderate right middle lobe atelectasis [...] segment of the right middle lobe. SL: [id number] 07/08/2015 [facility] Consultation Notes No Data Provided for This Section Discharge Summaries No Data Provided for This Section History and Physicals No Data Provided for This Section Vital Signs Vital Sign Value Date Comments Source Diastolic (mm Hg) 77 06/17/2017 [facility] Height 61 06/17/2017 [facility] Systolic (mm Hg) 170 06/17/2017 [facility] Weight 290 06/17/2017 [facility] Diastolic (mm Hg) 62 02/19/2017 [facility] Height 61 02/19/2017 [facility] Systolic (mm Hg) 170 02/19/2017 [facility] Weight 296 02/19/2017 [facility] Temperature Oral (F) 96.5 F 02/18/2017 [facility] Systolic (mm Hg) 128 02/18/2017 [facility] Diastolic (mm Hg) 63 02/18/2017 [facility] Systolic (mm Hg) 121 02/18/2017 [facility] Diastolic (mm Hg) 56 02/18/2017 [facility] Respitory Rate 18 02/18/2017 [facility] Heart Rate 53 02/18/2017 [facility] Temperature Oral (F) 97.7 F 02/18/2017 [facility] Respitory Rate 18 02/18/2017 [facility] Systolic (mm Hg) 118 02/18/2017 [facility] Diastolic (mm Hg) 47 02/18/2017 [facility] Heart Rate 56 02/18/2017 [facility] Temperature Oral (F) 97.8 F 02/18/2017 [facility] Respitory Rate 18 02/18/2017 [facility] Heart Rate 62 02/18/2017 [facility] Weight 134 02/17/2017 [facility] Height 152.4 cm 02/17/2017 [facility] BMI Calculated 57.69 02/17/2017 [facility] Heart Rate 52 02/17/2017 [facility] Systolic (mm [...] 18 07/11/2015 [facility] Heart Rate 68 07/11/2015 [facility] Temperature Oral (F) 98.2 F 07/11/2015 [facility] Temperature Oral (F) 98.2 F 07/11/2015 [facility] Systolic (mm Hg) 124 07/11/2015 [facility] Diastolic (mm Hg) 68 07/11/2015 [facility] Heart Rate 67 07/11/2015 [facility] Respitory Rate 18 07/11/2015 [facility] Heart Rate 70 07/11/2015 [facility] Temperature Oral (F) 98.9 F 07/11/2015 [facility] Respitory Rate 17 07/11/2015 [facility] Systolic (mm Hg) 133 07/11/2015 [facility] Diastolic (mm Hg) 64 07/11/2015 [facility] Height 152.4 cm 07/09/2015 [facility] BMI Calculated 58.97 07/09/2015 [facility] Weight 136.96 07/09/2015 [facility] Height 152.4 cm 07/09/2015 [facility] BMI Calculated 58.13 07/09/2015 [facility] Weight 135 07/09/2015 [facility] Diastolic (mm Hg) 72 04/18/2015 [facility] Height 61 04/18/2015 [facility] Systolic (mm Hg) 136 04/18/2015 [facility] Weight 300 04/18/2015 [facility] Encounters Location Location Details Encounter Type Encounter Number Reason For Visit Attending Provider ADM Date DC Date Status Source [facility] Inpatient [id number] Hardy Barton II 07/09/2015 07/11/2015 [facility] AUGUSTINE Arellano: [address] [facility], [address] [address], Ph. [id number] Azeb Brewster 05/14/2016 [facility] AUGUSTINE Arellano: [address] [facility], [address] [address], Ph. [id number] Azeb Brewster 05/25/2016 [facility] AUGUSTINE Arellano: [address] [facility], [address], [place] [address], Ph. [id number] Azeb Brewster 10/18/2016 [facility] Du Vasquez MD: [address] [facility], [address], [place] [address], Ph. [id number] Du Vasquez 12/20/2016 [facility] Eloy Malcolm MD: [address] [facility], [address], [place] [address], Ph. [id number] Eloy Malcolm 12/28/2016 [facility] Emergency [id number] Lasha Cazares III 02/17/2017 02/17/2017 [facility] Observation [id number] Lasha Cazares III 02/17/2017 02/18/2017 [facility] DAMIAN Benjamin: [address] [facility], [address], [place] [address], Ph. [id number] Heather Troy 02/19/2017 [facility] Estephanie Hutchison: [address] [facility], [address], [place] [address], Ph. [id number] Estephanie Hutchison 03/05/2017 [facility] DAMIAN Verma: [address] [facility], [address], [place] [address], Ph. [id number] Sherley Gilliland 06/17/2017 [facility] Registered Surgical Day Care [id number] NUSRAT PATEL MD 12/03/2017 [facility] Registered Surgical Day Care [id number] DANIELLE PALOMINO MD 06/03/2018 [facility] Registered Surgical Day Care [id number] CAIT DOOLEY MD 06/25/2018 [facility] Registered Clinic [id number] DANIELLE PALOMINO MD 07/21/2018 [facility] Departed Emergency Room [id number] RICHARDSON SEGURA MD 08/22/2018 08/22/2018 [facility] Procedures Procedure Code Date Perfomer Comments Source LAPAROSCOPIC CHOLECYSTECTOMY 91022 06/25/2018 [facility] HYSTEROSCOPY BIOPSY 30391 06/03/2018 [facility] X-ray of chest, two views [id number] 05/28/2018 [facility] EGD BIOPSY SINGLE/MULTIPLE 59914 12/03/2017 [facility] COLONOSCOPY W/LESION REMOVAL 25427 12/03/2017 [facility] COLONOSCOPY W/LESION REMOVAL 27010 12/03/2017 [facility] bone density 06/17/2017 [facility] X-RAY OF FOOT 3+ VIEW 93230 05/14/2016 [facility] MAMMO, screening, bilateral 05/14/2016 [facility] bone density, dual photon absorptiometry 05/14/2016 [facility] Abdominal hysterectomy [id number] [facility] Abdominal hysterectomy [id number] [facility] Assessment and Plan Assessment and Plan Date Source Extracted from:Title: History and Physical Author: Lance Jacob DO [...] primary care provider. Ordered: Admit/Condition, 02/17/17 15:19:00 [employer], Status: Out Patient with Observation Services, Telemetry, Expected LOS: 1 Midnight, Lance Jacob DO, Admit MD Review/Approve Yes, Isolation: No Isolation/Standard Precautions Admit/Condition, 02/17/17 17:27:00 [employer], Status: Out Patient with Observation Services, Telemetry, Reason: Chest Pain, Expected LOS: 1 Midnight, Lance Jacob DO, Admit MD Review/Approve Yes, Isolation: No Isolation/Standard Precautions Ambulation Continue observation 02/18/2017 [facility] Extracted from:Title: Discharge Summary * Author: Garrick Dillard MD [...] needs to follow up with Urology. Extracted from:Title: Progress Note * Author: Garrick Dillard MD [...] toimprove and WBCs decrease FULL CODE Extracted from:Title: General Admission H&P * Author: Garrick Dillard [...] surgical intervention vs conservative management FULL CODE 07/11/2015 [facility] Plan of Care Plan of Care Date Source Discharge Date 08/22/18 4:00pm Disposition HOME, SELF-CARE Condition at Discharge Stable Instructions/Education Provided Urinary Tract Infection - Women Forms Provided Work/School Excuse Prescriptions See Medication Section Referrals DU VASQUEZ MD (BUDDY) Address: [address] [place] [address] Additional Instructions/Education 1- Take medication as directed for UTI 2- Follow up with your [employer] for prolapsed uterus 3- Follow up with your PCP as needed 4- Return for any concerns 08/22/2018 [facility] Social History Social History Date Source No social history information available. 08/22/2018 [facility] Social History TypeResponse Substance Abuse Use: None. Alcohol Never Smoking Status Never smoker; Exposure to Tobacco Smoke None; Cigarette Smoking Last 365 Days No; Reg Smoking Cessation Counseling No 02/17/2017 [facility] Social History TypeResponse Substance Abuse Use: None. Alcohol Never Smoking Status Never smoker; Exposure to Tobacco Smoke None; Cigarette Smoking Last 365 Days No; Reg Smoking Cessation Counseling No 02/17/2017 [facility] Smoking Status Never Smoker 10/18/2016 [facility] Family History No Data Provided for This Section Advance Directives Order Name Results Value Date Source Advance Directives Advance Directives Directive Response Recorded Date/Time Does the patient have an advance directive? No 12/02/17 9:30am If yes, is advance directive on file with [facility]? No 06/24/18 3:22pm If not on file with [facility] will patient provide a copy? No 06/24/18 3:22pm Do you have a Directive to Physician? No 08/22/18 4:27pm Do you have a Medical Power of [place]? No 08/22/18 4:27pm Do you have an out of hospital Do Not Resuscitate Order? No 08/22/18 4:27pm Do you have any special needs we should be aware of? No 08/22/18 4:27pm Do you have a support person here with you today? Yes 08/22/18 4:27pm Did patient receive Notice of Privacy Practices? Yes 08/22/18 4:27pm Did patient receive patient rights and responsibilities? Yes 08/22/18 4:27pm 08/22/2018 [facility] Functional Status No Data Provided for This Section
[2018-09-23 19:06] LABS: BASOPHILS # (AUTO) 0.1 (0.0-0.1); BASOPHILS % 0.6 % (0.0-1.0); EOSINOPHILS # (AUTO) 0.1 (0.0-0.4); EOSINOPHILS % 0.7 % (0.0-6.0); HEMATOCRIT 42.1 % (34.2-44.1); HEMOGLOBIN 13.8 g/dL (12.0-16.0); LYMPHOCYTES # (AUTO) 1.6 (1.0-3.2); LYMPHOCYTES % 13.6 % (18.0-39.1); MEAN CORPUSCULAR HEMOGLOBIN 29.2 pg (28-32); MEAN CORPUSCULAR HGB CONC 32.8 g/dL (31-35); MONOCYTES % 8.4 % (4.4-11.3); NEUTROPHILS % 76.3 % (38.7-80.0); PLATELET COUNT 300 x10e3/uL (140-360); RED BLOOD COUNT 4.73 x10e6/uL (3.6-5.1); RED CELL DISTRIBUTION WIDTH 13.8 % (11.7-14.4)
[2018-09-23 19:25] LABS: ALANINE AMINOTRANSFERASE 11 IU/L (0-55); ALBUMIN 3.4 g/dL (3.5-5.0); ALBUMIN/GLOBULIN RATIO 0.6 (0.8-2.0); ALKALINE PHOSPHATASE 102 IU/L (40-150); AMYLASE 34 U/L (25-125); ANION GAP 14.7 mmol/L (8-16); BLOOD UREA NITROGEN 11 mg/dL (7-26); BUN/CREATININE RATIO 12 (6-25); CALCIUM 11.3 mg/dL (8.4-10.2); CARBON DIOXIDE 30 mmol/L (22-29); CHLORIDE 96 mmol/L (98-107); CREATININE, SERUM 0.89 mg/dL (0.57-1.11); EST GLOMERULAR FILTRATION RATE > 60 ML/MIN (60-); GLUCOSE 124 mg/dL (74-118); LIPASE 8 U/L (8-78); MAGNESIUM 1.8 MG/DL (1.3-2.1); POTASSIUM 3.7 mmol/L (3.5-5.1); SODIUM 137 mmol/L (136-145)
--- NOTE | 2018-09-23 20:29 | Diagnostic Imaging Report ---
EXAM: CT Abdomen and Pelvis WITHOUT contrast INDICATION: possible incarerated umblical hernia COMPARISON: None. TECHNIQUE: Abdomen and pelvis were scanned utilizing a multidetector helical scanner from the lung base to the pubic symphysis without administration of IV contrast. Absence of intravenous contrast decreases sensitivity for detection of focal lesions and vascular pathology. Coronal and sagittal reformations were obtained. Routine protocol was performed. IV CONTRAST: None ORAL CONTRAST: Redicat COMPLICATIONS: None RADIATION DOSE: Total DLP: 859 mGy*cm Estimated effective dose: (DLP x 0.015 x size factor) mSv CTDIvol has been reviewed. It is below the limits set by the Radiation Protocol Committee (RPC). Dose modulation, iterative reconstruction, and/or weight based adjustment of the mA/kV was utilized to reduce the radiation dose to as low as reasonably achievable. FINDINGS: LINES and TUBES: None. LOWER THORAX: Multiple subcentimeter nodules in the bilateral lower lobes. HEPATOBILIARY: A 2.4 cm right hepatic lobe peripheral hypodensity, has internal fluid density. No biliary ductal dilation. GALLBLADDER: Surgically changes of cholecystectomy and the gallbladder fossa. SPLEEN: No splenomegaly. PANCREAS: No focal masses or ductal dilatation. ADRENALS: A 1.6 cm right adrenal nodule measures 2 Hounsfield units on this noncontrast scan, consistent with a lipid rich benign adenoma. KIDNEYS/URETERS: Mild left hydroureteronephrosis. No cystic or solid mass lesions. No stones. GI TRACT: A loop of small bowel is herniated within an infraumbilical hernia, with mild wall thickening and stranding. Sigmoid diverticuli. No abnormal distention, or evidence of bowel obstruction. Appendix is normal. PELVIC ORGANS/BLADDER: An intrauterine mass, likely endometrial, measures up to 7.2 cm. Large bilateral adnexal lobular masses are contiguous with the uterus. Characterization of these masses is limited in the absence of IV contrast. LYMPH NODES: Multiple enlarged retroperitoneal and pelvic lymph nodes seen on series 2, exams include: -2.4 cm right common iliac lymph node (image 62). -1.4 cm left external iliac lymph node (image 66). - 1.1 cm aortocaval lymph node at the level of the renal vessels (image 31). VESSELS: Unremarkable. PERITONEUM / RETROPERITONEUM: Nodularity along the posterior parietal peritoneum bilaterally. BONES: Degenerative changes in the spine. SOFT TISSUES: Large infraumbilical fat and bowel-containing hernia through a 4.8 cm peritoneal defect, contains a loop of sigmoid colon. There are inflammatory changes and trace fluid in the hernia sac. IMPRESSION: 1. Infraumbilical hernia contains a loop of small bowel which demonstrates wall thickening and adjacent mesenteric fat stranding in the hernia, raises suspicion for strangulation, currently no bowel obstruction. Metastasis are also possible cause of the stranding and free fluid. 2. Marked uterine enlargement with bilateral adnexal masses and pelvic and retroperitoneal adenopathy is highly suspicious for uterine malignancy with metastasis, suspect uterine endometrial malignancy. 3. Mild left hydroureteronephrosis likely due to compressive effects from the left adnexal mass. 4. A 2.4 cm fluid dense mass in the right liver likely represents a cyst, however cystic metastasis cannot be excluded. 5. Nonspecific nodularity in the bilateral lower lobes, infectious or inflammatory etiologies are possible, however given the pelvic findings, metastases are also consideration. Signed by: Umesh Jacob MD on 09/23/2018 8:26 PM
[2018-09-23 20:51] LABS: BILIRUBIN,URINE NEGATIVE (NEGATIVE); CLARITY,URINE CLEAR (CLEAR); COLOR,URINE YELLOW (YELLOW); KETONES,URINE NEGATIVE (NEGATIVE); LEUKOCYTE ESTERASE ,URINE SMALL (NEGATIVE); NITRITE,URINE NEGATIVE (NEGATIVE); PROTEIN,URINE DIPSTICK NEGATIVE (NEGATIVE); URINE UROBILINOGEN 0.2 mg/dL (0.2 - 1)
[2018-09-23] MEDS ORDERED: PROMETHAZINE 12.5MG/ NACL 0.9% 12.5 MG/50 ML BAG IV PRN (21:00)
[2018-09-23 21:04] LABS: BACTERIA,URINE MANY /HPF; EPITHELIAL CELLS,URINE MANY /LPF; RBC,URINE 0-5 /HPF (0-5); WBC,URINE (MAN) 0-5 /HPF (0-5)
[2018-09-23] MEDS ORDERED: HYDROMORPHONE 2MG/ML 2 MG/ML ML IV PRN (21:15)
[2018-09-23] MEDS ORDERED: MORPHINE SULFATE INJ 4 MG/ML INJ 1ML IV PRN (21:30)
--- OUTSIDE RECORDS SUMMARY | 2018-09-23 23:38 | XMS REPORT | Continuity of Care Document ---
Author Author [employer] Organization [employer] Address Unknown Phone Unavailable Care Team Providers Care Chocolate [employer] Name Role Phone [employer] [place] [employer] Unavailable Unavailable Problems Problem Status Onset Date Classification Date Reported Comments Source Screening for osteoporosis 06/17/2017 Diagnosis 06/17/2017 [facility] Screening for malignant neoplasm of colon 06/17/2017 Diagnosis 06/17/2017 [facility] Chest pain 02/19/2017 Diagnosis 06/17/2017 [facility] CHEST PAIN Active 02/17/2017 [facility] [place] Lumbago with sciatica 12/28/2016 Diagnosis 06/17/2017 [facility] Acute low back pain 12/28/2016 Diagnosis 06/17/2017 [facility] Muscle pain 12/20/2016 Diagnosis 06/17/2017 [facility] Dermatophytosis 12/20/2016 Diagnosis 06/17/2017 [facility] Body mass index 40+ - severely obese 10/18/2016 Diagnosis 06/17/2017 [facility] Acute exacerbation of chronic obstructive airways disease 05/25/2016 Diagnosis 06/17/2017 [facility] Postmenopausal state 05/14/2016 Diagnosis 06/17/2017 [facility] Immunization 05/14/2016 Diagnosis 06/17/2017 [facility] Screening mammography 05/14/2016 Diagnosis 06/17/2017 [facility] Pain in left foot 05/14/2016 Diagnosis 06/17/2017 [facility] Morbid obesity 05/14/2016 Diagnosis 06/17/2017 [facility] Chronic obstructive lung disease 05/14/2016 Diagnosis 06/17/2017 [facility] Gastroesophageal reflux disease 05/14/2016 Diagnosis 06/17/2017 [facility] Hypertensive heart disease 05/14/2016 Diagnosis 06/17/2017 [facility] Prediabetes 05/14/2016 Problem 06/17/2017 [facility] On Examination - Eyes - Arcus Senilis 01/26/2016 Problem 06/17/2017 [facility] Bilateral Age-related Nuclear Cataracts 01/26/2016 Problem 06/17/2017 [facility] ABD PAIN Active 07/08/2015 [facility] Morbid Obesity 04/18/2015 Problem 06/17/2017 [facility] Hypertensive Heart Disease 04/18/2015 Problem 06/17/2017 [facility] Chronic Obstructive Lung Disease 04/18/2015 Problem 06/17/2017 [facility] Gastroesophageal Reflux Disease 04/18/2015 Problem 06/17/2017 [facility] Idiopathic Osteoarthritis 04/18/2015 Problem 06/17/2017 [facility] Arthropathy 04/18/2015 Problem 06/17/2017 [facility] Body Mass Index 40+ - Severely Obese 04/18/2015 Problem 06/17/2017 [facility] Lesion of Lung 04/18/2015 Problem 06/17/2017 [facility] Asthma Resolved Problem 02/21/2017 [facility] Gastroenteritis Resolved Problem 02/21/2017 [facility] GERD (Confirmed) Resolved Problem 02/21/2017 [facility] HTN (Confirmed) Resolved Problem 02/21/2017 [facility] Umbilical hernia, incarcerated Resolved Problem 02/21/2017 [facility] CALCULUS OF GALLBLADDER W/O CHOLECYSTITI Active [facility] Medications Medication Details Route Status Patient Instructions Ordering Provider Order Date Source Aspirin (Aspir-Low) 81 Mg Tablet.dr, 81 Mg Oral Daily Active 06/24/2018 [facility] Metoprolol Succinate 50 Mg Tab.er.24h, 50 Mg Oral Daily Active 06/24/2018 [facility] Furosemide 40 Mg Tablet, 40 Mg Oral Daily Active 05/28/2018 [facility] Metoprolol Succinate 50 Mg Tab.er.24h, 50 Mg Oral Daily Active 05/28/2018 [facility] Omeprazole 20 Mg Tablet.dr, 20 Mg Oral Daily Active 05/28/2018 [facility] Potassium Chloride 20 Meq Tab.er.prt, 20 Meq Oral Daily Active 05/28/2018 [facility] Vios Aerosol Delivery System Vios Aerosol Delivery System Active 06/17/2017 [facility] Clotrimazole 10 MG/ML Topical Cream clotrimazole 1 % topical cream Active 02/19/2017 [facility] 2 ML Ketorolac Tromethamine 30 MG/ML Injection ketorolac 60 mg/2 mL intramuscular solution Inject 2 mL as needed by intramuscular route for 2 days. Active 02/19/2017 [facility] methylprednisolone 4 mg tablets in a dose pack methylprednisolone 4 mg tablets in a dose pack Active 02/19/2017 [facility] Triamcinolone Acetonide 1 MG/ML Topical Cream triamcinolone acetonide 0.1 % topical cream Active 02/19/2017 [facility] Acetaminophen 325 MG / Hydrocodone Bitartrate 5 MG Oral Tablet [[place] 5/325] 1 tab, Route: PO, Drug Form: TAB, Dosing Weight 134, kg, ONCE, Start date: 02/18/17 9:31:00 LUMBER SCALER, Stop date: 02/18/17 9:31:00 CSTNotes: (Same as: [place] 325/5) Do not exceed 4gm/day of acetaminophen. Inactive 02/18/2017 [facility] Lisinopril 5 mg, 1 tab, Route: PO, Drug form: TAB, Daily, Dosing Weight 134, kg, Start date: 02/18/17 9:00:00 LUMBER SCALER, Duration: 30 day, Stop date: 03/19/17 9:00:00 CSTNotes: (Same as: Prinivil, Zestril) Inactive 02/18/2017 [facility] Aspirin 81 MG Chewable Tablet 81 mg, 1 tab, Route: PO, Drug form: CHEWTAB, Daily, Dosing Weight 134, kg, Start date: 02/18/17 9:00:00 LUMBER SCALER, Duration: 30 day, Stop date: 03/19/17 9:00:00 LUMBER SCALER Inactive 02/18/2017 [facility] Lipitor 80 mg, 1 tab, Route: PO, Drug form: TAB, Bedtime, Dosing Weight 134, kg, Start date: 02/17/17 21:00:00 LUMBER SCALER, Duration: 30 day, Stop date: 03/18/17 21:00:00 CSTNotes: Same as Lipitor No Longer Active 02/18/2017 [facility] Saline Flush 0.9% 10 ml, Route: IVP, Drug Form: INJ, Dosing Weight 134, kg, Q12H, Start date: 02/17/17 21:00:00 LUMBER SCALER, Duration: 30 day, Stop date: 03/19/17 9:00:00 CSTNotes: (Same as: BD Posiflush) No Longer Active 02/18/2017 [facility] Saline Flush 0.9% 10 ml, Route: IVP, Drug Form: INJ, Dosing Weight 134, kg, PRN, PRN Line Flush, Start date: 02/17/17 17:27:00 LUMBER SCALER, Duration: 30 day, Stop date: 03/19/17 17:26:00 CSTNotes: (Same as: BD Posiflush) No Longer Active 02/17/2017 [facility] Ondansetron 4 mg, 1 tab, Route: PO, Drug form: TAB, Q8H, Dosing Weight 134, kg, PRN Nausea & Vomiting, Start date: 02/17/17 17:27:00 LUMBER SCALER, Duration: 30 day, Stop date: 03/19/17 17:26:00 CSTNotes: (Same as: Zofran) No Longer Active 02/17/2017 [facility] Nitroglycerin 0.4 mg, 1 tab, Route: SL, Drug form: TAB, Q5Min, Dosing Weight 134, kg, PRN Chest Pain, Start date: 02/17/17 17:27:00 LUMBER SCALER, Duration: 3 doses or times, Stop date: Limited # of times No Longer Active 02/17/2017 [facility] Morphine 2 mg, 0.5 mL, Route: IVP, Drug form: SOLN, Q15Min, Dosing Weight 134, kg, PRN Chest Pain, Start date: 02/17/17 17:27:00 LUMBER SCALER, Duration: 2 doses or times, Stop date: Limited # of timesNotes: (Same as:M ORPhine Sulfate) No Longer Active 02/17/2017 [facility] aspirin 81 mg tablet, enteric coated 81 mg, 1 tab, Route: PO, Drug form: ECTAB, Daily, Dosing Weight 134, kg, Start date: 02/17/17 17:26:00 LUMBER SCALER, Duration: 30 day, Stop date: 03/19/17 9:00:00 CSTNotes: Do not crush or chew. (Same As: Ecotrin) Inactive 02/17/2017 [facility] Morphine 1 mg, 0.25 mL, Route: IVP, Drug form: SOLN, Q2H, Dosing Weight 134, kg, PRN Pain Score 7-10, Start date: 02/17/17 16:52:00 LUMBER SCALER, Duration: 30 day, Stop date: 03/19/17 16:51:00 CSTNotes: (Same as:MORPhine Sulfate) No Longer Active 02/17/2017 [facility] Acetaminophen 300 MG / Codeine Phosphate 30 MG Oral Tablet [Tylenol with Codeine #3] 2 tab, Route: PO, Drug Form: TAB, Dosing Weight 134, kg, Q6H, PRN Pain Score 4-6, Start date: 02/17/17 16:52:00 LUMBER SCALER, Duration: 30 day, Stop date: 03/19/17 16:51:00 CSTNotes: Do not exceed 4gm/day of froy taminophen. (Same as: Tylenol with Codeine # 3) No Longer Active 02/17/2017 [facility] Nitroglycerin 0.4 MG Sublingual Tablet [Nitrostat] 0.4 mg, 1 tab, Route: SL, Drug form: TAB, Q5Min, Dosing Weight 134, kg, PRN Chest Pain, Start date: 02/17/17 16:51:00 LUMBER SCALER, Duration: 30 day, Stop date: 03/19/17 16:50:00 CSTNotes: (Same as:Nitroquick, Nitrostat) "Do Not Crush" Sublingual tablet Inactive 02/17/2017 [facility] Symbicort 160/4.5 inhalation aerosol with adapter 2 puff, INHALER, BID, PRN Shortness of breath, # 1 ea, 3 Refill(s) Active 02/17/2017 [facility] potassium chloride 20 mEq oral tablet, extended release 20 mEq=1 tab, PO, Daily, # 30 tab, 3 Refill(s) Active 02/17/2017 [facility] Ibuprofen 800 mg, PO, Q8H, PRN Pain Score 7-10, 0 Refill(s) Active 02/17/2017 [facility] Omeprazole 20 mg, PO, Daily, 0 Refill(s) Active 02/17/2017 [facility] methocarbamol 750 mg oral tablet 1,500 mg=2 tab, PO, TID, PRN Pain Score 4-6, 0 Refill(s) Active 02/17/2017 [facility] Nitroglycerin 0.4 MG Sublingual Tablet 0.4 mg, Route: SL, ONCE, Dosing Weight 133.636, kg, Priority: STAT, Start date: 02/17/17 10:26:00 LUMBER SCALER, Stop date: 02/17/17 10:26:00 LUMBER SCALER Inactive 02/17/2017 [facility] Aspirin 81 MG Chewable Tablet 324 mg, Route: PO, Drug form: CHEWTAB, ONCE, Dosing Weight 133.636, kg, Priority: STAT, Start date: 02/17/17 10:26:00 LUMBER SCALER, Stop date: 02/17/17 10:26:00 LUMBER SCALER Inactive 02/17/2017 [facility] doxycycline hyclate 100 MG Oral Capsule doxycycline hyclate 100 mg capsule Active 10/18/2016 [facility] Acetaminophen 300 MG / Codeine Phosphate 15 MG Oral Tablet acetaminophen 300 mg-codeine 15 mg tablet Active 05/14/2016 [facility] Amoxicillin 875 MG / Clavulanate 125 MG Oral Tablet amoxicillin 875 mg-potassium clavulanate 125 mg tablet Active 05/14/2016 [facility] Azithromycin 500 MG Oral Tablet azithromycin 500 mg tablet Active 05/14/2016 [facility] Docusate Sodium 100 MG Oral Tablet docusate sodium 100 mg tablet Take 1 tablet every day by oral route as needed. Active 05/14/2016 [facility] Fluconazole 150 MG Oral Tablet fluconazole 150 mg tablet Active 05/14/2016 [facility] Ibuprofen 400 MG Oral Tablet ibuprofen 400 mg tablet Active 05/14/2016 [facility] Lactulose 667 MG/ML Oral Solution lactulose 10 gram/15 mL oral solution Active 05/14/2016 [facility] Levofloxacin 750 MG Oral Tablet levofloxacin 750 mg tablet Active 05/14/2016 [facility] terbinafine 250 MG Oral Tablet terbinafine HCl 250 mg tablet Active 05/14/2016 [facility] tramadol hydrochloride 50 MG Oral Tablet tramadol 50 mg tablet Active 05/14/2016 [facility] zafirlukast 20 MG Oral Tablet zafirlukast 20 mg tablet Active 05/14/2016 [facility] metoprolol extended release 50 mg, 1 tab, Route: PO, Drug form: ERTAB, Daily, Start date: 07/11/15 16:00:00 CDT, Duration: 30 day, Stop date: 08/10/15 9:00:00 CDTNotes: (Same as: Toprol XL) May split tab, but do not crush. Inactive 07/11/2015 [facility] Losartan 100 mg, 2 tab, Route: PO, Drug form: TAB, Daily, Dosing Weight 136.96, kg, Start date: 07/11/15 14:00:00 CDT, Duration: 30 day, Stop date: 08/10/15 9:00:00 CDTNotes: (Same as: [place]) Inactive 07/11/2015 [facility] Furosemide 40 mg, 1 tab, Route: PO, Drug form: TAB, Daily, Dosing Weight 136.96, kg, Start date: 07/11/15 14:00:00 CDT, Duration: 30 day, Stop date: 08/10/15 9:00:00 CDTNotes: (Same as: Lasix) May cause GI upset. Give with food or milk. Inactive 07/11/2015 [facility] bifidobacterium-lactobacillus oral capsule 1 cap, PO, BID, # 10 cap, 0 Refill(s) Active 07/11/2015 [facility] Levofloxacin 750 MG Oral Tablet [Levaquin] 750 mg=1 tab, PO, Daily, X 5 day, # 5 tab, 0 Refill(s) Active 07/11/2015 [facility] Acetaminophen 300 MG / Codeine Phosphate 15 MG Oral Tablet 1 tab, PO, Q4H, PRN Pain, X 3 day, # 18 tab, 0 Refill(s) Active 07/11/2015 [facility] Albuterol 0.833 MG/ML / Ipratropium [place] 0.167 MG/ML Inhalant Solution [DuoNeb] 3 ml, Route: NEB, Drug Form: SOLN, Dosing Weight 136.96, kg, ONCE, PRN Respiratory Protocol, Start date: 07/11/15 12:22:00 CDT, Stop date: 08/10/15 12:21:00 CDTNotes: (Same as: Duoneb) Inactive 07/11/2015 [facility] Calcium Gluconate 3 gm, 30 mL, Route: IVPB, PRN, Dosing Weight 136.96, kg, PRN Abnormal Lab Result, For NON-ICU Patients Only., Start date: 07/10/15 10:15:00 CDT, Duration: 30 day, Stop date: 08/09/15 10:14:00 CDTNotes: WASTE: F/P - Sink; E - Municipal Trash Bin No Longer Active 07/10/2015 [facility] Magnesium Oxide 800 mg, 2 tab, Route: PO, Drug form: TAB, PRN, Dosing Weight 136.96, kg, PRN Abnormal Lab Result, For NON-ICU Patients Only., Start date: 07/10/15 10:15:00 CDT, Duration: 30 day, Stop date: 08/09/15 10:14:00 CDTNotes: (Same as: Mag-Ox 400) Magnesium oxide [id number] elemental magnesium Dose=____mg magnesium oxide (___mg elemental magnesium) No Longer Active 07/10/2015 [facility] sodium phosphate + Sodium Chloride 0.9% IV 250 mL 30 mmol, 10 mL, Route: IVPB, PRN, Dosing Weight 136.96, kg, PRN Abnormal Lab Result, For NON-ICU Patients Only., Start date: 07/10/15 10:15:00 CDT, Duration: 30 day, Stop date: 08/09/15 10:14:00 CDT No Longer Active 07/10/2015 [facility] Magnesium Sulfate 1 gm, 100 mL, Route: IVPB, Drug form: INJ, PRN, Dosing Weight 136.96, kg, PRN Abnormal Lab Result, For NON-ICU Patients Only., Start date: 07/10/15 10:15:00 CDT, Duration: 30 day, Stop date: 08/09/15 10:14:00 CDTNotes: WASTE: F/P - Sink; E - Municipal Trash Bin No Longer Active 07/10/2015 [facility] potassium phosphate + Sodium Chloride 0.9% IV 250 mL 30 mmol, 10 mL, Route: IVPB, PRN, Dosing Weight 136.96, kg, PRN Abnormal Lab Result, For NON-ICU Patients Only., Start date: 07/10/15 10:15:00 CDT, Duration: 30 day, Stop date: 08/09/15 10:14:00 CDTNotes: (Same as: K Phosphate.) 1 mMol phoshate has 1.47 mEq potassium Infuse over 4 hours No Longer Active 07/10/2015 [facility] potassium chloride 10 mEq, 100 mL, Route: IVPB, Drug form: INJ, PRN, Dosing Weight 136.96, kg, PRN Abnormal Lab Result, For NON-ICU Patients Only, Start date: 07/10/15 10:15:00 CDT, Duration: 30 day, Stop date: 08/09/15 10:14:00 CDTNotes: Infuse at a rate of 10 mEq/hr. (Same as: KCL) No Longer Active 07/10/2015 [facility] potassium phosphate-sodium phosphate 250 mg-278 mg-164 mg oral powder 2 pkt, Route: PO, Drug Form: PDR/REC, Dosing Weight 136.96, kg, PRN, PRN Abnormal Lab Result, For NON-ICU Patients Only, Start date: 07/10/15 10:15:00 CDT, Duration: 30 day, Stop date: 08/09/15 10:14:00 CDTNotes: (Same as: Neutra-Phos) Each 1.25 gm pkt has 250mg phosphorous. Mix w/2.5oz water and stir. No Longer Active 07/10/2015 [facility] potassium chloride 10 mEq, 100 mL, Route: IVPB, Drug form: INJ, Q1H, Dosing Weight 136.96, kg, Total Dose=40 mEq; Peripheral Line, Start date: 07/10/15 8:00:00 CDT, Duration: 4 doses or times, Stop date: 07/10/15 11:00:00 CDTNotes: Infuse at a rate of 10 mEq/hr. (Same as: KCL) Inactive 07/10/2015 [facility] potassium phosphate + Sodium Chloride 0.9% IV 250 mL 30 mmol, 10 mL, Route: IVPB, ONCE, Dosing Weight 136.96, kg, Start date: 07/10/15 7:41:00 CDT, Stop date: 07/10/15 7:41:00 CDTNotes: (Same as: K Phosphate.) 1 mMol phoshate has 1.47 mEq potassium Infuse over 4 hours Inactive 07/10/2015 [facility] Levaquin 500 mg, 100 mL, Route: IVPB, Drug form: SOLN, [id number], Dosing Weight 136.96, kg, Priority: STAT, Start date: 07/10/15 4:16:00 CDT, Duration: 30 day, Stop date: 08/08/15 4:16:00 CDTNotes: (Same as:Levaquin) No Longer Active 07/10/2015 [facility] Furosemide 40 mg, PO, Daily, 0 Refill(s) Active 07/10/2015 [facility] Losartan 100 mg, PO, Daily, 0 Refill(s) Active 07/10/2015 [facility] metoprolol extended release 50 mg, PO, Daily, 0 Refill(s) Active 07/10/2015 [facility] Zosyn + Sodium Chloride 0.9% IV 100 mL 3.375 gm, Route: IVPB, ABXQ8H, Start date: 07/09/15 20:00:00 CDT, Duration: 30 day, Stop date: 08/08/15 9:00:00 CDTNotes: (Same as: Zosyn) Dosing based on Piperacillin component MEDICATION WASTE Product Size: 3375 mg Product Wasted: ___ mg No Longer Active 07/10/2015 [facility] Zosyn 4.5 gm, Route: IV, Drug form: INJ, ABXQ6H, Dosing Weight 136.96, kg, Start date: 07/09/15 16:00:00 CDT, Duration: 30 day, Stop date: 08/08/15 10:00:00 CDT, Substitute Allowed No, > 40 kg; Pediatric Dosing Inactive 07/09/2015 [facility] Bentyl 20 mg, 1 tab, Route: PO, Drug form: TAB, QID, Dosing Weight 135, kg, Start date: 07/09/15 9:00:00 CDT, Duration: 30 day, Stop date: 08/07/15 21:00:00 CDTNotes: (Same as: Bentyl) Inactive 07/09/2015 [facility] heparin 7,500 unit, 1.5 mL, Route: SUB-Q, Drug form: INJ, Q8H-06, Dosing Weight 135, kg, Consider for obese patients, Start date: 07/09/15 6:00:00 CDT, Duration: 30 day, Stop date: 08/07/15 22:00:00 CDTNotes: porcine heparin No Longer Active 07/09/2015 [facility] Zosyn 3.375 gm, Route: IVPB, ABXQ8H, Dosing Weight 135, kg, Start date: 07/09/15 5:00:00 CDT, Duration: 30 day, Stop date: 08/07/15 21:00:00 CDTNotes: (Same as: Zosyn) Dosing based on Piperacillin component MEDICATION WASTE Product Size: 3375 mg Product Wasted: ___ mg Inactive 07/09/2015 [facility] Flagyl 500 mg, 100 mL, Route: IVPB, Drug form: INJ, ABXQ8H, Dosing Weight 135, kg, Start date: 07/09/15 3:00:00 CDT, Duration: 30 day, Stop date: 08/07/15 19:00:00 CDTNotes: (Same as: Flagyl) Avoid alcohol. No Longer Active 07/09/2015 [facility] Protonix 40 mg, Route: IVP, Drug form: INJ, BID, Dosing Weight 135, kg, Patient is NPO, Priority: STAT, Start date: 07/09/15 2:55:00 CDT, Duration: 30 day, Stop date: 08/07/15 17:00:00 CDTNotes: For IV push isaiah nstitute with 10 ml 0.9% sodium chloride and push over 2 minutes. (Same as: Protonix) No Longer Active 07/09/2015 [facility] tramadol hydrochloride 50 MG Oral Tablet 50 mg, 1 tab, Route: PO, Drug form: TAB, Q6H, Dosing Weight 135, kg, PRN Pain Score 4-6, Start date: 07/09/15 2:55:00 CDT, Duration: 30 day, Stop date: 08/08/15 2:54:00 CDTNotes: Not to exceed 400mg/day. (Same As: Ultram) No Longer Active 07/09/2015 [facility] Gas-X Ultra Softgels 160 mg, 2 tab, Route: PO, Drug form: CHEWTAB, Q4H, Dosing Weight 135, kg, PRN Gas, Start date: 07/09/15 2:55:00 CDT, Duration: 30 day, Stop date: 08/08/15 2:54:00 CDTNotes: (Same as: Mylicon) No Longer Active 07/09/2015 [facility] Sodium Chloride 0.154 MEQ/ML Injectable Solution 1,000 mL, Rate: 125 ml/hr, Infuse over: 8 hr, Route: IV, Dosing Weight 135 kg, Total Volume: 1,000, Start date: 07/09/15 2:55:00 CDT, Duration: 30 day, Stop date: 08/08/15 2:54:00 CDT No Longer Active 07/09/2015 [facility] GI cocktail 30 ml, Route: PO, Drug Form: SUSP, Dosing Weight 135, kg, Q4H, PRN Indigestion, NOW, Start date: 07/09/15 2:55:00 CDT, Duration: 30 day, Stop date: 08/08/15 2:54:00 CDT, DYSPEPSIANotes: G.I. Cocktail=antacid with simethicone 22.5 mL - lidocaine viscous 7.5 mL No Longer Active 07/09/2015 [facility] Hydralazine 10 mg, 0.5 mL, Route: IVP, Drug form: INJ, Q6H, Dosing Weight 135, kg, PRN Elevated BP, Start date: 07/09/15 2:55:00 CDT, Duration: 30 day, Stop date: 08/08/15 2:54:00 CDT, SBP>/=160 OR DBP>/=90Notes: (Same as: Apresoline) Push over 5 minutes No Longer Active 07/09/2015 [facility] Docusate Sodium 100 MG Oral Capsule [Colace] 100 mg, 1 cap, Route: PO, Drug form: CAP, BID, Dosing Weight 135, kg, PRN Constipation, Start date: 07/09/15 2:55:00 CDT, Duration: 30 day, Stop date: 08/08/15 2:54:00 CDTNotes: (Same as: Colace) (Do Not Crush) No Longer Active 07/09/2015 [facility] Morphine 2 mg, 1 mL, Route: IVP, Drug form: INJ, Q4H, Dosing Weight 135, kg, PRN Pain Score 4-6, Start date: 07/09/15 2:55:00 CDT, Duration: 3 day, Stop date: 07/12/15 2:54:00 CDTNotes: (Same as:MORPhine Sulfate) No Longer Active 07/09/2015 [facility] Ondansetron 4 mg, 2 mL, Route: IVP, Drug form: INJ, Q4H, Dosing Weight 135, kg, PRN Nausea & Vomiting, Start date: 07/09/15 2:55:00 CDT, Duration: 30 day, Stop date: 08/08/15 2:54:00 CDTNotes: (Same as: Zofran) MEDICATION WASTE Product Size: 4 mg Product Wasted: ___ mg No Longer Active 07/09/2015 [facility] Acetaminophen 650 mg, 2 tab, Route: PO, Drug form: TAB, Q4H, Dosing Weight 135, kg, PRN Pain 1-3/Temp > 100.4 F, Start date: 07/09/15 2:55:00 CDT, Duration: 30 day, Stop date: 08/08/15 2:54:00 CDTNotes: Do not exc eed 4 gm/day. (Same as: Tylenol) No Longer Active 07/09/2015 [facility] Zosyn 3.375 gm, Route: IVPB, Drug form: PDR/INJ, ONCE, Dosing Weight 135, kg, Priority: STAT, Start date: 07/09/15 2:41:00 CDT, Stop date: 07/09/15 2:41:00 CDT Inactive 07/09/2015 [facility] Saline Flush 0.9% 10 mL, Route: IVP, Drug Form: INJ, Dosing Weight 135, kg, PRN, PRN Line Flush, Start date: 07/08/15 21:50:00 CDT, Duration: 30 day, Stop date: 08/07/15 21:49:00 CDTNotes: (Same as: BD Posiflush) No Longer Active 07/09/2015 [facility] Iohexol 50 mL, Route: PO, Drug Form: SOLN, Dosing Weight 135, kg, ONCE, Start date: 07/08/15 21:50:00 CDT, Stop date: 07/08/15 21:50:00 CDTNotes: (Same as:Omnipaque 240) 12,000mg/50ml WASTE: F/P - Black; E - Municipal Trash Bin No Longer Active 07/09/2015 [facility] Azithromycin 250 MG Oral Tablet azithromycin 250 mg tablet TAKE 2 TABLETS (500 MG) BY ORAL ROUTE ONCE DAILY FOR 1 DAY THEN 1 TABLET (250 MG) BY ORAL ROUTE ONCE DAILY FOR 4 DAYS Active [facility] Furosemide 40 MG Oral Tablet furosemide 40 mg tablet TAKE 1 TABLET BY MOUTH EVERY DAY Active [facility] Ibuprofen 800 MG Oral Tablet ibuprofen 800 mg tablet Active [facility] Albuterol 0.833 MG/ML / Ipratropium [place] 0.167 MG/ML Inhalant Solution ipratropium-albuterol 0.5 mg-3 mg(2.5 mg base)/3 mL nebulization soln Active [facility] Losartan Potassium 100 MG Oral Tablet losartan 100 mg tablet Active [facility] Methocarbamol 750 MG Oral Tablet methocarbamol 750 mg tablet Active [facility] 24 HR metoprolol succinate 50 MG Extended Release Oral Tablet metoprolol succinate ER 50 mg tablet,extended release 24 hr TAKE 1 TABLET BY MOUTH EVERY DAY Active [facility] Omeprazole 20 MG Delayed Release Oral Capsule omeprazole 20 mg capsule,delayed release TAKE 1 CAPSULE BY MOUTH EVERY DAY Active [facility] Microencapsulated Potassium Chloride 20 MEQ Extended Release Oral Tablet potassium chloride ER 20 mEq tablet,extended release(part/cryst) Active [facility] Prednisone 20 MG Oral Tablet prednisone 20 mg tablet Take 2 tablets every day by oral route in the morning for 10 days. Active [facility] 200 ACTUAT Albuterol 0.09 MG/ACTUAT Metered Dose Inhaler [ProAir] ProAir HFA 90 mcg/actuation aerosol inhaler Inhale 2 puffs every 4 hours by inhalation route. Active [facility] Budesonide 0.16 MG/ACTUAT / formoterol fumarate 0.0045 MG/ACTUAT Metered Dose Inhaler Symbicort 160 mcg-4.5 mcg/actuation HFA aerosol inhaler Active [facility] Dexlansoprazole (Dexilant) 60 Mg Felix. Active THERAPEUTIC INTERCHANGE WITH PROTONIX PER [facility] Losartan Potassium 100 Mg Tablet Daily Active [facility] Allergies, Adverse Reactions, Alerts Substance Category Reaction Severity Reaction type Status Date Reported Comments Source Iodinated Contrast- Oral and Iv Dye Allergy to substance 09/19/2015 [facility] Iodinated Contrast- Oral and IV Dye SWELLING Severe Allergy to Substance Active 08/22/2018 [facility] iodinated radiocontrast dyes Assertion Drug allergy Active [facility] Immunizations Immunization Date Given Site Status Last Updated Comments Source influenza, high dose seasonal 12/20/2016 completed [facility] pneumococcal conjugate PCV 13 05/14/2016 completed [facility] influenza, injectable, quadrivalent 12/06/2015 completed [facility] zoster 08/23/2013 completed [facility] Results Order Name Results Value Reference Range Date Interpretation Comments Source Urine color determination YELLOW YELLOW 08/22/2018 [facility] Urine clarity SL CLOUDY CLEAR 08/22/2018 [facility] Specific gravity of Urine by Test strip <=1.005 1.010 - 1.025 08/22/2018 [facility] Urine pH measurement by automated test strip 6.5 5 - 7 08/22/2018 [facility] Urine leukocyte esterase detection by automated test strip TRACE NEGATIVE 08/22/2018 [facility] Urine nitrite detection by automated test strip NEGATIVE NEGATIVE 08/22/2018 [facility] Urine protein detection by automated test strip NEGATIVE NEGATIVE 08/22/2018 [facility] Urine glucose detection by automated test strip NEGATIVE NEGATIVE 08/22/2018 [facility] Urine ketones detection by automated test strip NEGATIVE NEGATIVE 08/22/2018 [facility] Urine urobilinogen measurement by test strip (mass/volume) 4 0.2 - 1 08/22/2018 [facility] Urine total bilirubin detection NEGATIVE NEGATIVE 08/22/2018 [facility] Urine erythrocytes detection 1+ NEGATIVE 08/22/2018 [facility] Automated urine sediment leukocyte count by microscopy (number/high power field) 6-10 0 - 5 08/22/2018 [facility] Erythrocytes detection in urine sediment by light microscopy 6-10 0 - 5 08/22/2018 [facility] Bacteria detection in urine sediment by light microscopy MODERATE NONE 08/22/2018 [facility] Epithelial cells detection in urine sediment by light microscopy MANY NONE 08/22/2018 [facility] Transitional cells detection in urine sediment by light microscopy FEW NONE 08/22/2018 [facility] Renal epithelial cells detection in urine sediment by light microscopy FEW NONE 08/22/2018 [facility] Serum or plasma urea nitrogen measurement (mass/volume) 10 7 - 26 07/21/2018 [facility] Serum or plasma creatinine measurement (mass/volume) 0.80 0.57 - 1.11 07/21/2018 [facility] Serum or plasma urea nitrogen/creatinine mass ratio 13 6 - 25 07/21/2018 [facility] Estimated glomerular filtration rate (GFR) determination > 60 60 07/21/2018 [facility] Serum or plasma sodium measurement (moles/volume) 135 136 - 145 06/24/2018 [facility] Serum or plasma potassium measurement (moles/volume) 3.9 3.5 - 5.1 06/24/2018 [facility] Serum or plasma chloride measurement (moles/volume) 101 98 - 107 06/24/2018 [facility] Serum or plasma carbon dioxide, total measurement (moles/volume) 29 22 - 29 06/24/2018 [facility] Serum or plasma anion gap 8.9 8 - 16 06/24/2018 [facility] Glucose measurement 122 74 - 118 06/24/2018 [facility] Serum or plasma calcium measurement (mass/volume) 9.8 8.4 - 10.2 06/24/2018 [facility] Serum or plasma total bilirubin measurement (mass/volume) 0.5 0.2 - 1.2 06/24/2018 [facility] Aspartate Amino Transf (AST/SGOT) 19 5 - 34 06/24/2018 [facility] Serum or plasma alanine aminotransferase measurement (enzymatic activity/volume) 20 0 - 55 06/24/2018 [facility] Serum or plasma protein measurement (mass/volume) 8.1 6.5 - 8.1 06/24/2018 [facility] Serum or plasma albumin measurement (mass/volume) 3.4 3.5 - 5.0 06/24/2018 [facility] Plasma globulin measurement (mass/volume) 4.7 2.3 - 3.5 06/24/2018 [facility] Serum or plasma albumin/globulin mass ratio 0.7 0.8 - 2.0 06/24/2018 [facility] Serum or plasma alkaline phosphatase measurement (enzymatic activity/volume) 103 40 - 150 06/24/2018 [facility] Blood leukocytes automated count (number/volume) 7.81 4.8 - 10.8 05/28/2018 [facility] Blood erythrocytes automated count (number/volume) 4.47 3.6 - 5.1 05/28/2018 [facility] Blood hemoglobin measurement (moles/volume) 13.3 12.0 - 16.0 05/28/2018 [facility] Automated blood hematocrit (volume fraction) 41.0 34.2 - 44.1 05/28/2018 [facility] Automated erythrocyte mean corpuscular volume 91.7 81 - 99 05/28/2018 [facility] Automated erythrocyte mean corpuscular hemoglobin (mass per erythrocyte) 29.8 28 - 32 05/28/2018 [facility] Automated erythrocyte mean corpuscular hemoglobin concentration measurement (mass/volume) 32.4 31 - 35 05/28/2018 [facility] RDW BldCo-Rto 13.1 11.7 - 14.4 05/28/2018 [facility] Automated blood platelet count (count/volume) 216 140 - 360 05/28/2018 [facility] Automated blood segmented neutrophil count as percentage of total leukocytes 72.0 38.7 - 80.0 05/28/2018 [facility] Automated blood lymphocyte count as percentage ot total leukocytes 18.1 18.0 - 39.1 05/28/2018 [facility] Automated blood monocyte count as percentage of total leukocytes 6.9 4.4 - 11.3 05/28/2018 [facility] Automated blood eosinophil count as percentage of total leukocytes 2.0 0.0 - 6.0 05/28/2018 [facility] Automated blood basophil count as percentage of total leukocytes 0.6 0.0 - 1.0 05/28/2018 [facility] IM GRANULOCYTES % 0.4 0.0 - 1.0 05/28/2018 [facility] Automated blood neutrophil count 5.6 2.1 - 6.9 05/28/2018 [facility] Blood lymphocytes count (number/volume) 1.4 1.0 - 3.2 05/28/2018 [facility] Blood monocytes automated count (number/volume) 0.5 0.2 - 0.8 05/28/2018 [facility] Automated blood eosinophil count 0.2 0.0 - 0.4 05/28/2018 [facility] Automated blood basophil count (count/volume) 0.1 0.0 - 0.1 05/28/2018 [facility] Absolute Immature Granulocyte (auto 0.03 0 - 0.1 05/28/2018 [facility] CHEM PANEL Glucose Lvl 105 70 - 99 02/18/2017 [facility] CHEM PANEL CO2 32 24 - 32 02/18/2017 [facility] CHEM PANEL eGFR 81 02/18/2017 Result Comment: [...] should be multiplied by the estimated BMI. [facility] CHEM PANEL Calcium Lvl 8.6 8.5 - 10.5 02/18/2017 [facility] CHEM PANEL Chloride Lvl 104 95 - 109 02/18/2017 [facility] CHEM PANEL Potassium Lvl 3.6 3.5 - 5.1 02/18/2017 [facility] CHEM PANEL Sodium Lvl 142 135 - 145 02/18/2017 [facility] CHEM PANEL Creatinine Lvl 0.76 0.50 - 1.40 02/18/2017 [facility] CHEM PANEL BUN 24 7 - 22 02/18/2017 [facility] CHEM PANEL AGAP 9.6 10.0 - 20.0 02/18/2017 [facility] HEMATOLOGY MPV 11.2 7.4 - 10.4 02/18/2017 [facility] HEMATOLOGY Hct 37.6 36.0 - 48.0 02/18/2017 [facility] HEMATOLOGY Hgb 12.7 12.0 - 16.0 02/18/2017 [facility] HEMATOLOGY WBC 7.5 3.7 - 10.4 02/18/2017 [facility] HEMATOLOGY RBC 4.21 4.20 - 5.40 02/18/2017 [facility] HEMATOLOGY MCHC 33.8 32.0 - 36.0 02/18/2017 [facility] HEMATOLOGY MCH 30.2 27.0 - 31.0 02/18/2017 [facility] HEMATOLOGY Platelet 161 133 - 450 02/18/2017 [facility] HEMATOLOGY RDW 13.6 11.5 - 14.5 02/18/2017 [facility] HEMATOLOGY MCV 89.3 80.0 - 98.0 02/18/2017 [facility] HEMATOLOGY Segs-Bands # 5.0 1.5 - 8.1 02/18/2017 [facility] HEMATOLOGY Lymphocytes # 1.6 1.0 - 5.5 02/18/2017 [facility] HEMATOLOGY Monocytes # 0.6 0.0 - 0.8 02/18/2017 [facility] HEMATOLOGY Eosinophils # 0.2 0.0 - 0.5 02/18/2017 [facility] HEMATOLOGY Basophils 0.6 0.0 - 1.0 02/18/2017 [facility] HEMATOLOGY Lymphocytes 21.5 20.0 - 40.0 02/18/2017 [facility] HEMATOLOGY Eosinophils 2.3 0.0 - 4.0 02/18/2017 [facility] HEMATOLOGY Monocytes 8.5 2.0 - 12.0 02/18/2017 [facility] HEMATOLOGY Segs 67.1 45.0 - 75.0 02/18/2017 [facility] CARDIAC ENZYMES Troponin-T <0.010 0.000 - 0.100 02/18/2017 [facility] CARDIAC ENZYMES Troponin-I <0.02 0.00 - 0.40 02/18/2017 [facility] CARDIAC ENZYMES Total CK 43 12 - 191 02/18/2017 [facility] CARDIAC ENZYMES Troponin-T <0.010 0.000 - 0.100 02/17/2017 [facility] CARDIAC ENZYMES Troponin-I <0.02 0.00 - 0.40 02/17/2017 [facility] CARDIAC ENZYMES Total CK 43 12 - 191 02/17/2017 [facility] LIPIDS LDL (Calculated) 102 <=99 mg/dL 02/17/2017 [facility] LIPIDS CHD Risk 3.53 3.90 - 5.80 02/17/2017 [facility] LIPIDS Chol 180 <=199 mg/dL 02/17/2017 [facility] LIPIDS HDL 51 >=61 mg/dL 02/17/2017 [facility] LIPIDS Trig 133 <=149 mg/dL 02/17/2017 [facility] LIPIDS VLDL 27 02/17/2017 [facility] CARDIAC ENZYMES proBNP 251 0 - 125 02/17/2017 [facility] CARDIAC ENZYMES Troponin-I <0.02 0.00 - 0.40 02/17/2017 [facility] CARDIAC ENZYMES Total CK 52 12 - 191 02/17/2017 [facility] CHEM PANEL eGFR 71 02/17/2017 Result Comment: [...] should be multiplied by the estimated BMI. [facility] CHEM PANEL Sodium Lvl 139 135 - 145 02/17/2017 [facility] CHEM PANEL Potassium Lvl 3.7 3.5 - 5.1 02/17/2017 [facility] CHEM PANEL CO2 33 24 - 32 02/17/2017 [facility] CHEM PANEL Chloride Lvl 100 95 - 109 02/17/2017 [facility] CHEM PANEL Calcium Lvl 9.1 8.5 - 10.5 02/17/2017 [facility] CHEM PANEL Glucose Lvl 99 70 - 99 02/17/2017 [facility] CHEM PANEL BUN 23 7 - 22 02/17/2017 [facility] CHEM PANEL Creatinine Lvl 0.85 0.50 - 1.40 02/17/2017 [facility] CHEM PANEL AGAP 9.7 10.0 - 20.0 02/17/2017 [facility] HEMATOLOGY RBC 4.66 4.20 - 5.40 02/17/2017 [facility] HEMATOLOGY Hgb 13.6 12.0 - 16.0 02/17/2017 [facility] HEMATOLOGY Hct 41.7 36.0 - 48.0 02/17/2017 [facility] HEMATOLOGY MCV 89.4 80.0 - 98.0 02/17/2017 [facility] HEMATOLOGY MCH 29.3 27.0 - 31.0 02/17/2017 [facility] HEMATOLOGY MCHC 32.7 32.0 - 36.0 02/17/2017 [facility] HEMATOLOGY WBC 7.2 3.7 - 10.4 02/17/2017 [facility] HEMATOLOGY RDW 13.2 11.5 - 14.5 02/17/2017 [facility] HEMATOLOGY Platelet 200 133 - 450 02/17/2017 [facility] HEMATOLOGY MPV 12.1 7.4 - 10.4 02/17/2017 [facility] HEMATOLOGY Segs-Bands # 5.3 1.5 - 8.1 [...] HEMATOLOGY Segs 74.0 45.0 - 75.0 02/17/2017 [facility] CBC W Auto Differential panel - Blood white blood cell count 8.3 3.8 - 10.8 10/19/[address] [facility] CBC W Auto Differential panel - Blood red blood cell count 4.50 3.80 - 5.10 10/19/[address] [facility] CBC W Auto Differential panel - Blood hemoglobin 13.4 11.7 - 15.5 10/19/[address] [facility] CBC W Auto Differential panel - Blood hematocrit 40.6 35.0 - 45.0 10/19/[address] [facility] CBC W Auto Differential panel - Blood MCV 90.2 80.0 - 100.0 10/19/[address] [facility] CBC W Auto Differential panel - Blood MCH 29.8 27.0 - 33.0 10/19/[address] [facility] CBC W Auto Differential panel - Blood MCHC 33.1 32.0 - 36.0 10/19/[address] [facility] CBC W Auto Differential panel - Blood RDW 14.2 11.0 - 15.0 10/19/[address] [facility] CBC W Auto Differential panel - Blood platelet count 197 140 - 400 10/19/[address] [facility] CBC W Auto Differential panel - Blood MPV 11.5 7.5 - 12.5 10/19/[address] [facility] CBC W Auto Differential panel - Blood absolute neutrophils 5976 1500 - 7800 10/19/[address] [facility] CBC W Auto Differential panel - Blood absolute lymphocytes 1411 850 - 3900 10/19/[address] [facility] CBC W Auto Differential panel - Blood absolute monocytes 739 200 - 950 10/19/[address] [facility] CBC W Auto Differential panel - Blood absolute eosinophils 125 15 - 500 10/19/[address] [facility] CBC W Auto Differential panel - Blood absolute basophils 50 0 - 200 10/19/[address] [facility] CBC W Auto Differential panel - Blood neutrophils 72.0 10/19/[address] [facility] CBC W Auto Differential panel - Blood lymphocytes 17.0 10/19/[address] [facility] CBC W Auto Differential panel - Blood monocytes 8.9 10/19/[address] [facility] CBC W Auto Differential panel - Blood eosinophils 1.5 10/19/[address] [facility] CBC W Auto Differential panel - Blood basophils 0.6 10/19/[address] [facility] Comprehensive metabolic 2000 panel - Serum or Plasma glucose 90 65 - 99 10/19/[address] [facility] Comprehensive metabolic 2000 panel - Serum or Plasma urea nitrogen (BUN) 15 7 - 25 10/19/[address] [facility] Comprehensive metabolic 1999 panel - Serum or Plasma creatinine 0.73 0.50 - 0.99 10/19/[address] [facility] Comprehensive metabolic 1999 panel - Serum or Plasma eGFR non-afr. portuguese 86 > or=60 10/19/[address] [facility] Comprehensive metabolic 1999 panel - Serum or Plasma eGFR 99 > or=60 10/19/[address] [facility] Comprehensive metabolic 1999 panel - Serum or Plasma BUN/creatinine ratio not applicable - 10/19/2016 [facility] Comprehensive metabolic 1999 panel - Serum or Plasma sodium 140 135 - 146 10/19/[address] [facility] Comprehensive metabolic 1999 panel - Serum or Plasma potassium 3.8 3.5 - 5.3 10/19/[address] [facility] Comprehensive metabolic 1999 panel - Serum or Plasma chloride 101 98 - 110 10/19/[address] [facility] Comprehensive metabolic 1999 panel - Serum or Plasma carbon dioxide 31 20 - 31 10/19/[address] [facility] Comprehensive metabolic 1999 panel - Serum or Plasma calcium 9.2 8.6 - 10.4 10/19/[address] [facility] Comprehensive metabolic 1999 panel - Serum or Plasma protein, total 7.7 6.1 - 8.1 10/19/[address] [facility] Comprehensive metabolic 1999 panel - Serum or Plasma albumin 3.8 3.6 - 5.1 10/19/[address] [facility] Comprehensive metabolic 1999 panel - Serum or Plasma globulin 3.9 1.9 - 3.7 10/19/2016 [facility] Comprehensive metabolic 1999 panel - Serum or Plasma albumin/globulin ratio 1.0 1.0 - 2.5 10/19/[address] [facility] Comprehensive metabolic 1999 panel - Serum or Plasma bilirubin, total 0.5 0.2 - 1.2 10/19/[address] [facility] Comprehensive metabolic 1999 panel - Serum or Plasma alkaline phosphatase 123 33 - 130 10/19/[address] [facility] Comprehensive metabolic 1999 panel - Serum or Plasma AST 13 10 - 35 10/19/[address] [facility] Comprehensive metabolic 1999 panel - Serum or Plasma ALT 11 6 - 29 10/19/[address] [facility] Lipid 1995 panel - Serum or Plasma cholesterol, total 179 125 - 200 10/19/[address] [facility] Lipid 1995 panel - Serum or Plasma HDL cholesterol 47 > or=46 10/19/[address] [facility] Lipid 1995 panel - Serum or Plasma triglycerides 140 <150 10/19/[address] [facility] Lipid 1995 panel - Serum or Plasma LDL-cholesterol 104 <130 10/19/[address] [facility] Lipid 1995 panel - Serum or Plasma chol/HDLC ratio 3.8 < or=5.0 10/19/[address] [facility] Lipid 1995 panel - Serum or Plasma non HDL cholesterol 132 10/19/[address] [facility] Thyrotropin [Units/volume] in Serum or Plasma TSH 1.40 0.40 - 4.50 10/19/[address] [facility] Thyroxine (T4) free [Mass/volume] in Serum or Plasma T4, free 1.2 0.8 - 1.8 10/19/[address] [facility] CBC W Auto Differential panel - Blood Leukocytes [#/volume] in Blood by Automated count 7.0 3.8 - 10.8 05/15/[address] [facility] CBC W Auto Differential panel - Blood Erythrocytes [#/volume] in Blood by Automated count 4.22 3.80 - 5.10 05/15/[address] [facility] CBC W Auto Differential panel - Blood Hemoglobin [Mass/volume] in Blood 12.4 11.7 - 15.5 05/15/[address] [facility] CBC W Auto Differential panel - Blood Hematocrit [Volume Fraction] of Blood by Automated count 38.3 35.0 - 45.0 05/15/[address] [facility] CBC W Auto Differential panel - Blood Erythrocyte mean corpuscular volume [Entitic volume] by Automated count 90.8 80.0 - 100.0 05/15/[address] [facility] CBC W Auto Differential panel - Blood Erythrocyte mean corpuscular hemoglobin [Entitic mass] by Automated count 29.4 27.0 - 33.0 05/15/[address] [facility] CBC W Auto Differential panel - Blood Erythrocyte mean corpuscular hemoglobin concentration [Mass/volume] by Automated count 32.4 32.0 - 36.0 05/15/[address] [facility] CBC W Auto Differential panel - Blood Erythrocyte distribution width [Ratio] by Automated count 14.4 11.0 - 15.0 05/15/[address] [facility] CBC W Auto Differential panel - Blood Platelets [#/volume] in Blood by Automated count 188 140 - 400 05/15/[address] [facility] CBC W Auto Differential panel - Blood Platelet mean volume [Entitic volume] in Blood by Jaden 12.6 7.5 - 12.5 05/15/2016 [facility] CBC W Auto Differential panel - Blood Neutrophils [#/volume] in Blood by Automated count 5089 1500 - 7800 05/15/[address] [facility] CBC W Auto Differential panel - Blood Lymphocytes [#/volume] in Blood by Automated count 1309 850 - 3900 05/15/[address] [facility] CBC W Auto Differential panel - Blood Monocytes [#/volume] in Blood by Automated count 434 200 - 950 05/15/[address] [facility] CBC W Auto Differential panel - Blood Eosinophils [#/volume] in Blood by Automated count 140 15 - 500 05/15/[address] [facility] CBC W Auto Differential panel - Blood Basophils [#/volume] in Blood by Automated count 28 0 - 200 05/15/[address] [facility] CBC W Auto Differential panel - Blood Neutrophils/100 leukocytes in Blood by Automated count 72.7 05/15/[address] [facility] CBC W Auto Differential panel - Blood Lymphocytes/100 leukocytes in Blood by Automated count 18.7 05/15/[address] [facility] CBC W Auto Differential panel - Blood Monocytes/100 leukocytes in Blood by Automated count 6.2 05/15/[address] [facility] CBC W Auto Differential panel - Blood Eosinophils/100 leukocytes in Blood by Automated count 2.0 05/15/[address] [facility] CBC W Auto Differential panel - Blood Basophils/100 leukocytes in Blood by Automated count 0.4 05/15/[address] [facility] Comprehensive metabolic 1999 panel - Serum or Plasma Glucose [Mass/volume] in Serum or Plasma 119 65 - 99 05/15/2016 [facility] Comprehensive metabolic 1999 panel - Serum or Plasma Urea nitrogen [Mass/volume] in Serum or Plasma 25 7 - 25 05/15/[address] [facility] Comprehensive metabolic 1999 panel - Serum or Plasma Creatinine [Mass/volume] in Serum or Plasma 0.81 0.50 - 0.99 05/15/[address] [facility] Comprehensive metabolic 1999 panel - Serum or Plasma Glomerular filtration rate/1.73 sq M.predicted by Creatinine-based formula (MDRD) 76 > or=60 05/15/[address] [facility] Comprehensive metabolic 1999 panel - Serum or Plasma Glomerular filtration rate/1.73 sq M predicted among blacks by Creatinine-based formula (MDRD) 88 > or=60 05/15/[address] [facility] 1999 panel - Serum or Plasma Urea nitrogen/Creatinine [Mass Ratio] in Serum or Plasma not applicable 6 - 05/15/2016 [facility] metabolic 1999 panel - Serum or Plasma Sodium [Moles/volume] in Serum or Plasma 139 135 - 146 05/15/[address] [facility] metabolic 1999 panel - Serum or Plasma Potassium [Moles/volume] in Serum or Plasma 4.5 3.5 - 5.3 05/15/[address] [facility] metabolic 1999 panel - Serum or Plasma Chloride [Moles/volume] in Serum or Plasma 101 98 - 110 05/15/[address] [facility] metabolic 1999 panel - Serum or Plasma Carbon dioxide, total [Moles/volume] in Serum or Plasma 31 20 - 31 05/15/[address] [facility] metabolic 1999 panel - Serum or Plasma Calcium [Mass/volume] in Serum or Plasma 8.6 8.6 - 10.4 05/15/[address] [facility] 1999 panel - Serum or Plasma Protein [Mass/volume] in Serum or Plasma 7.1 6.1 - 8.1 05/15/[address] [facility] metabolic 1999 panel - Serum or Plasma Albumin [Mass/volume] in Serum or Plasma 3.6 3.6 - 5.1 05/15/[address] [facility] metabolic 1999 panel - Serum or Plasma Globulin [Mass/volume] in Serum by calculation 3.5 1.9 - 3.7 05/15/[address] [facility] 1999 panel - Serum or Plasma Albumin/Globulin [Mass Ratio] in Serum or Plasma 1.0 1.0 - 2.5 05/15/[address] [facility] metabolic 1999 panel - Serum or Plasma Bilirubin.total [Mass/volume] in Serum or Plasma 0.5 0.2 - 1.2 05/15/[address] [facility] metabolic 1999 panel - Serum or Plasma Alkaline phosphatase [Enzymatic activity/volume] in Serum or Plasma 113 33 - 130 05/15/[address] [facility] metabolic 1999 panel - Serum or Plasma Aspartate aminotransferase [Enzymatic activity/volume] in Serum or Plasma 11 10 - 35 05/15/[address] [facility] metabolic 1999 panel - Serum or Plasma Alanine aminotransferase [Enzymatic activity/volume] in Serum or Plasma 10 6 - 29 05/15/[address] [facility] Hemoglobin A1c/Hemoglobin.total in Blood Hemoglobin A1c/Hemoglobin.total in Blood 5.8 <5.7 05/15/2016 [facility] Lipid 1995 panel - Serum or Plasma Cholesterol [Mass/volume] in Serum or Plasma 170 125 - 200 05/15/[address] [facility] Lipid 1995 panel - Serum or Plasma Cholesterol in HDL [Mass/volume] in Serum or Plasma 48 > or=46 05/15/[address] [facility] Lipid 1995 panel - Serum or Plasma Triglyceride [Mass/volume] in Serum or Plasma 80 <150 05/15/[address] [facility] Lipid 1995 panel - Serum or Plasma Cholesterol in LDL [Mass/volume] in Serum or Plasma by calculation 106 <130 05/15/[address] [facility] Lipid 1995 panel - Serum or Plasma Cholesterol.total/Cholesterol.in HDL [Mass ratio] in Serum or Plasma 3.5 < or=5.0 05/15/[address] [facility] Lipid 1995 panel - Serum or Plasma Cholesterol non HDL [Mass/volume] in Serum or Plasma 122 05/15/[address] [facility] CHEM PANEL Magnesium Lvl 1.9 1.8 - 2.4 07/11/2015 [facility] CHEM PANEL Phosphorus 1.7 2.5 - 4.5 07/11/2015 [facility] ELECTROLYTES AGAP 10.5 10.0 - 20.0 07/11/2015 [facility] ELECTROLYTES eGFR 88 07/11/2015 Result Comment: The [...] should be multiplied by the estimated BMI. [facility] ELECTROLYTES Potassium Lvl 3.5 3.5 - 5.1 07/11/2015 [facility] ELECTROLYTES Sodium Lvl 142 135 - 145 07/11/2015 [facility] ELECTROLYTES Creatinine Lvl 0.72 0.50 - 1.40 07/11/2015 [facility] ELECTROLYTES BUN 9 7 - 22 07/11/2015 [facility] ELECTROLYTES Glucose Lvl 105 70 - 99 07/11/2015 [facility] ELECTROLYTES CO2 25 24 - 32 07/11/2015 [facility] ELECTROLYTES Chloride Lvl 110 95 - 109 07/11/2015 [facility] ELECTROLYTES Calcium Lvl 7.9 8.5 - 10.5 07/11/2015 [facility] HEMATOLOGY MPV 10.9 7.4 - 10.4 07/11/2015 [facility] HEMATOLOGY MCH 28.9 27.0 - 31.0 07/11/2015 [facility] HEMATOLOGY MCHC 32.4 32.0 - 36.0 07/11/2015 [facility] HEMATOLOGY MCV 89.2 80.0 - 98.0 07/11/2015 [facility] HEMATOLOGY RDW 13.7 11.5 - 14.5 07/11/2015 [facility] HEMATOLOGY Platelet 147 133 - 450 07/11/2015 [facility] HEMATOLOGY Hgb 10.6 12.0 - 16.0 07/11/2015 [facility] HEMATOLOGY Hct 32.9 36.0 - 48.0 07/11/2015 [facility] HEMATOLOGY WBC 11.1 3.7 - 10.4 07/11/2015 [facility] HEMATOLOGY RBC 3.68 4.20 - 5.40 07/11/2015 [facility] HEMATOLOGY Lymphocytes # 1.2 1.0 - 5.5 07/11/2015 [facility] HEMATOLOGY Segs-Bands # 8.4 1.5 - 8.1 07/11/2015 [facility] HEMATOLOGY Basophils # 0.1 0.0 - 0.2 07/11/2015 [facility] HEMATOLOGY Monocytes # 1.3 0.0 - 0.8 07/11/2015 [facility] HEMATOLOGY Eosinophils # 0.1 0.0 - 0.5 07/11/2015 [facility] HEMATOLOGY Segs 75.6 45.0 - 75.0 07/11/2015 [facility] HEMATOLOGY Lymphocytes 10.8 20.0 - 40.0 07/11/2015 [facility] HEMATOLOGY Basophils 0.5 0.0 - 1.0 07/11/2015 [facility] HEMATOLOGY Monocytes 12.0 2.0 - 12.0 07/11/2015 [facility] HEMATOLOGY Eosinophils 1.1 0.0 - 4.0 07/11/2015 [facility] CHEM PANEL Procalcitonin Lvl 27.52 0.00 - 0.10 07/10/2015 Result Comment: Critical Result(s) called to OLEGARIO OJEDA at 07/10/2015 09:30 by ANASTACIO. Read back OK. [facility] CHEM PANEL Phosphorus 2.5 2.5 - 4.5 07/10/2015 [facility] CHEM PANEL Magnesium Lvl 2.0 1.8 - 2.4 07/10/2015 [facility] CHEM PANEL BUN 12 7 - 22 07/10/2015 [facility] CHEM PANEL Creatinine Lvl 0.88 0.50 - 1.40 07/10/2015 [facility] CHEM PANEL Glucose Lvl 121 70 - 99 07/10/2015 [facility] CHEM PANEL Sodium Lvl 139 135 - 145 07/10/2015 [facility] CHEM PANEL AGAP 10.8 10.0 - 20.0 07/10/2015 [facility] CHEM PANEL Chloride Lvl 103 95 - 109 07/10/2015 [facility] CHEM PANEL CO2 28 24 - 32 07/10/2015 [facility] CHEM PANEL Potassium Lvl 2.8 3.5 - 5.1 07/10/2015 Result Comment: Critical Result(s) called to ECTOR RAND at 07/10/2015 06:57 by ANASTACIO. Read back OK. [facility] CHEM PANEL Calcium Lvl 8.1 8.5 - 10.5 07/10/2015 [facility] CHEM PANEL eGFR 69 07/10/2015 Result Comment: [...] should be multiplied by the estimated BMI. [facility] Platelet 154 133 - 450 07/10/2015 [facility] HEMATOLOGY MPV 11.3 7.4 - 10.4 07/10/2015 [facility] HEMATOLOGY Hgb 11.2 12.0 - 16.0 07/10/2015 [facility] RBC 3.84 4.20 - 5.40 07/10/2015 [facility] WBC 14.9 3.7 - 10.4 07/10/2015 [facility] MCHC 32.8 32.0 - 36.0 07/10/2015 [facility] Hct 34.2 36.0 - 48.0 07/10/2015 [facility] HEMATOLOGY MCV 88.9 80.0 - 98.0 07/10/2015 [facility] MCH 29.2 27.0 - 31.0 07/10/2015 [facility] RDW 13.8 11.5 - 14.5 07/10/2015 [facility] HEMATOLOGY Segs 86.0 45.0 - 75.0 07/10/2015 [facility] HEMATOLOGY Lymphocytes 4.2 20.0 - 40.0 07/10/2015 [facility] HEMATOLOGY Monocytes 9.4 2.0 - 12.0 07/10/2015 [facility] Lymphocytes # 0.6 1.0 - 5.5 07/10/2015 [facility] HEMATOLOGY Basophils 0.3 0.0 - 1.0 07/10/2015 [facility] HEMATOLOGY Eosinophils 0.1 0.0 - 4.0 07/10/2015 [facility] Segs-Bands # 12.8 1.5 - 8.1 07/10/2015 [facility] Monocytes # 1.4 0.0 - 0.8 07/10/2015 [facility] CHEM PANEL Globulin 4.8 2.0 - 4.0 07/09/2015 [facility] CHEM PANEL A/G Ratio 0.6 0.7 - 1.6 07/09/2015 [facility] CHEM PANEL AGAP 15.8 10.0 - 20.0 07/09/2015 [facility] CHEM PANEL B/C Ratio 18 6 - 25 07/09/2015 [facility] CHEM PANEL eGFR 59 07/09/2015 Result Comment: [...] should be multiplied by the estimated BMI. [facility] CHEM PANEL Total Protein 7.8 6.4 - 8.4 07/09/2015 [facility] CHEM PANEL Albumin Lvl 3.0 3.5 - 5.0 07/09/2015 [facility] CHEM PANEL ALT 21 0 - 65 07/09/2015 [facility] CHEM PANEL AST 17 0 - 37 07/09/2015 [facility] CHEM PANEL Alk Phos 101 39 - 136 07/09/2015 [facility] CHEM PANEL Bili Total 0.9 0.2 - 1.3 07/09/2015 [facility] CHEM PANEL BUN 18 7 - 22 07/09/2015 [facility] CHEM PANEL Creatinine Lvl 1.00 0.50 - 1.40 07/09/2015 [facility] CHEM PANEL Sodium Lvl 139 135 - 145 07/09/2015 [facility] CHEM PANEL Potassium Lvl 3.8 3.5 - 5.1 07/09/2015 [facility] CHEM PANEL Chloride Lvl 102 95 - 109 07/09/2015 [facility] CHEM PANEL Calcium Lvl 8.3 8.5 - 10.5 07/09/2015 [facility] CHEM PANEL CO2 25 24 - 32 07/09/2015 [facility] CHEM PANEL Glucose Lvl 116 70 - 99 07/09/2015 [facility] CHEM PANEL Phosphorus 2.7 2.5 - 4.5 07/09/2015 [facility] CHEM PANEL Magnesium Lvl 1.9 1.8 - 2.4 07/09/2015 [facility] HEMATOLOGY Hgb 12.1 12.0 - 16.0 07/09/2015 [facility] HEMATOLOGY Hct 36.1 36.0 - 48.0 07/09/2015 [facility] HEMATOLOGY MCV 88.3 80.0 - 98.0 07/09/2015 [facility] HEMATOLOGY WBC 22.0 3.7 - 10.4 07/09/2015 [facility] HEMATOLOGY RBC 4.09 4.20 - 5.40 07/09/2015 [facility] HEMATOLOGY MPV 10.8 7.4 - 10.4 07/09/2015 [facility] HEMATOLOGY MCH 29.5 27.0 - 31.0 07/09/2015 [facility] HEMATOLOGY MCHC 33.4 32.0 - 36.0 07/09/2015 [facility] HEMATOLOGY RDW 14.2 11.5 - 14.5 07/09/2015 [facility] HEMATOLOGY Platelet 176 133 - 450 07/09/2015 [facility] HEMATOLOGY Lymphocytes # 0.7 1.0 - 5.5 07/09/2015 [facility] HEMATOLOGY Segs-Bands # 20.4 1.5 - 8.1 07/09/2015 [facility] HEMATOLOGY Monocytes # 0.8 0.0 - 0.8 07/09/2015 [facility] HEMATOLOGY Basophils 0.4 0.0 - 1.0 07/09/2015 [facility] HEMATOLOGY Eosinophils 0.3 0.0 - 4.0 07/09/2015 [facility] HEMATOLOGY Basophils # 0.1 0.0 - 0.2 07/09/2015 [facility] HEMATOLOGY Eosinophils # 0.1 0.0 - 0.5 07/09/2015 [facility] HEMATOLOGY Monocytes 3.6 2.0 - 12.0 07/09/2015 [facility] HEMATOLOGY Segs 92.7 45.0 - 75.0 07/09/2015 [facility] HEMATOLOGY Lymphocytes 3.0 20.0 - 40.0 07/09/2015 [facility] URINE AND STOOL UA Sq Epi Few /LPF Few /LPF 07/09/2015 [facility] URINE AND STOOL UA WBC 6-10 /HPF None Seen /HPF 07/09/2015 [facility] URINE AND STOOL Micro? Performed (07/09/15 2:12 AM) 07/09/2015 [facility] URINE AND STOOL UA RBC 3-5 /HPF 0 - 2 07/09/2015 [facility] URINE AND STOOL UA Mucus Few /LPF None Seen /LPF 07/09/2015 [facility] URINE AND STOOL UA Bacteria Moderate /HPF None Seen /HPF 07/09/2015 [facility] URINE AND STOOL UA Blood Small *ABN* [...] Negative *NA* (07/09/15 2:12 AM) Negative 07/09/2015 [facility] CARDIAC ENZYMES CK MB Index <1.1 0.0 - 2.5 07/09/2015 [facility] CARDIAC ENZYMES Troponin-I <0.02 0.00 - 0.40 07/09/2015 [facility] CARDIAC ENZYMES Total CK 47 12 - 191 07/09/2015 [facility] CARDIAC ENZYMES CK MB <0.5 0.5 - 3.6 07/09/2015 [facility] CHEM PANEL B/C Ratio 17 6 - 25 07/09/2015 [facility] CHEM PANEL AST 13 0 - 37 07/09/2015 [facility] CHEM PANEL Total Protein 8.0 6.4 - 8.4 07/09/2015 [facility] CHEM PANEL A/G Ratio 0.7 0.7 - 1.6 07/09/2015 [facility] CHEM PANEL Globulin 4.7 2.0 - 4.0 07/09/2015 [facility] CHEM PANEL Bili Total 0.9 0.2 - 1.3 07/09/2015 [facility] CHEM PANEL ALT 23 0 - 65 07/09/2015 [facility] CHEM PANEL Albumin Lvl 3.3 3.5 - 5.0 07/09/2015 [facility] CHEM PANEL Alk Phos 112 39 - 136 07/09/2015 [facility] CHEM PANEL Lipase Lvl 66 73 - 393 07/09/2015 [facility] ENDOCRINOLOGY S Preg Negative *NA* (07/08/15 11:29 PM) Negative 07/09/2015 [facility] HEMATOLOGY Basophils # 0.2 0.0 - 0.2 07/09/2015 [facility] Pathology Reports No Data Provided for This [...] recommended to complete the staging process. 03/26/2018 [facility] Abdomen w/wo contrast MRI INDICATION: - [...] recommended to complete the staging process. 03/26/2018 [facility] Chest 2 views DX Clinical Indication: Chest pain Comparison: None FINDINGS: The PA and lateral chest radiographs shows normal lung volumes without interstitial or airspace opacities, pleural effusions or pneumothorax. The heart size and pulmonary vasculature are normal. The trachea is midline. There are no clinically significant osseous abnormalities noted. IMPRESSION: No chest radiographic evidence of acute cardiopulmonary disease. SL: [id number] 02/17/2017 [facility] Gallbladder scan [facility] EXAM:Nuclear Medicine Hepatobiliary Scan INDICATION: Abdominal [...] gallbladder. No evidence for acute cholecystitis. SL: [id number] 07/10/2015 [facility] Abdomen complete US Study: Abdomen complete US [...] is normal in size, measuring 13.9 cm. [id number] steatosis of the liver is present. A [...] and left kidney are poorly assessed. SL: [id number] 07/08/2015 [facility] Abdomen/Pelvis wo IV contrast CT Study: Abdomen/Pelvis [...] are available for review. CT Radiation Dose: CSF=287 mGy-cm FINDINGS: Moderate right middle lobe atelectasis [...] segment of the right middle lobe. SL: [id number] 07/08/2015 [facility] Consultation Notes No Data Provided for This Section Discharge Summaries No Data Provided for This Section History and Physicals No Data Provided for This Section Vital Signs Vital Sign Value Date Comments Source Diastolic (mm Hg) 77 06/17/2017 [facility] Height 61 06/17/2017 [facility] Systolic (mm Hg) 170 06/17/2017 [facility] Weight 290 06/17/2017 [facility] Diastolic (mm Hg) 62 02/19/2017 [facility] Height 61 02/19/2017 [facility] Systolic (mm Hg) 170 02/19/2017 [facility] Weight 296 02/19/2017 [facility] Temperature Oral (F) 96.5 F 02/18/2017 [facility] Systolic (mm Hg) 128 02/18/2017 [facility] Diastolic (mm Hg) 63 02/18/2017 [facility] Systolic (mm Hg) 121 02/18/2017 [facility] Diastolic (mm Hg) 56 02/18/2017 [facility] Respitory Rate 18 02/18/2017 [facility] Heart Rate 53 02/18/2017 [facility] Temperature Oral (F) 97.7 F 02/18/2017 [facility] Respitory Rate 18 02/18/2017 [facility] Systolic (mm Hg) 118 02/18/2017 [facility] Diastolic (mm Hg) 47 02/18/2017 [facility] Heart Rate 56 02/18/2017 [facility] Temperature Oral (F) 97.8 F 02/18/2017 [facility] Respitory Rate 18 02/18/2017 [facility] Heart Rate 62 02/18/2017 [facility] Weight 134 02/17/2017 [facility] Height 152.4 cm 02/17/2017 [facility] BMI Calculated 57.69 02/17/2017 [facility] Heart Rate 52 02/17/2017 [facility] Systolic (mm [...] 18 07/11/2015 [facility] Heart Rate 68 07/11/2015 [facility] Temperature Oral (F) 98.2 F 07/11/2015 [facility] Temperature Oral (F) 98.2 F 07/11/2015 [facility] Systolic (mm Hg) 124 07/11/2015 [facility] Diastolic (mm Hg) 68 07/11/2015 [facility] Heart Rate 67 07/11/2015 [facility] Respitory Rate 18 07/11/2015 [facility] Heart Rate 70 07/11/2015 [facility] Temperature Oral (F) 98.9 F 07/11/2015 [facility] Respitory Rate 17 07/11/2015 [facility] Systolic (mm Hg) 133 07/11/2015 [facility] Diastolic (mm Hg) 64 07/11/2015 [facility] Height 152.4 cm 07/09/2015 [facility] BMI Calculated 58.97 07/09/2015 [facility] Weight 136.96 07/09/2015 [facility] Height 152.4 cm 07/09/2015 [facility] BMI Calculated 58.13 07/09/2015 [facility] Weight 135 07/09/2015 [facility] Diastolic (mm Hg) 72 04/18/2015 [facility] Height 61 04/18/2015 [facility] Systolic (mm Hg) 136 04/18/2015 [facility] Weight 300 04/18/2015 [facility] Encounters Location Location Details Encounter Type Encounter Number Reason For Visit Attending Provider ADM Date DC Date Status Source [facility] Inpatient [id number] Hardy Barton II 07/09/2015 07/11/2015 [facility] AUGUSTINE Arellano: [id number] [facility], [address] [address], Ph. [id number] Azeb Brewster 05/14/2016 [facility] AUGUSTINE Arellano: [address] [facility], [address] [address], Ph. [id number] Azeb Brewster 05/25/2016 [facility] AUGUSTINE Arellano: [address] [facility], [address] [address], Ph. [id number] Azeb Brewster 10/18/2016 [facility] Du Vasquez MD: [id number] [facility], [address], [place] [address], Ph. [id number] Du Vasquez 12/20/2016 [facility] Eloy Malcolm MD: [id number] [facility], [address] [address], Ph. [id number] Eloy Malcolm 12/28/2016 [facility] [id number] Lasha Cazares III 02/17/2017 02/17/2017 [facility] Observation [id number] Lasha Cazares III 02/17/2017 02/18/2017 [facility] DAMIAN Benjamin: [address] [facility], [address] [address], Ph. [id number] Heather Troy 02/19/2017 [facility] Estephanie Hutchison: [address] [facility], [address] [address], Ph. [id number] Estephanie Hutchison 03/05/2017 [facility] DAMIAN Verma: [address] [facility], [address], [place] [address], Ph. [id number] Sherley Gilliland 06/17/2017 [facility] [id number] NUSRAT PATEL MD 12/03/2017 [facility] Registered [facility] [id number] DANIELLE PALOMINO MD 06/03/2018 [facility] [id number] CAIT DOOLEY MD 06/25/2018 [facility] Registered Clinic [id number] DANIELLE PALOMINO MD 07/21/2018 [facility] Departed Emergency Room [id number] RICHARDSON SEGURA MD 08/22/2018 08/22/2018 [facility] Procedures Procedure Code Date Perfomer Comments Source LAPAROSCOPIC CHOLECYSTECTOMY [id number] 06/25/2018 [facility] HYSTEROSCOPY BIOPSY 55592 06/03/2018 [facility] X-ray of chest, two views [id number] 05/28/2018 [facility] EGD BIOPSY SINGLE/MULTIPLE 55473 12/03/2017 [facility] COLONOSCOPY W/LESION REMOVAL [id number] 12/03/2017 [facility] COLONOSCOPY W/LESION REMOVAL 11467 12/03/2017 [facility] bone density 06/17/2017 [facility] X-RAY OF FOOT 3+ VIEW 28296 05/14/2016 [facility] MAMMO, screening, bilateral 05/14/2016 [facility] bone density, dual photon absorptiometry 05/14/2016 [facility] Abdominal hysterectomy [id number] [facility] Abdominal hysterectomy [id number] [facility] Assessment and Plan Assessment and Plan Date [...] primary care provider. Ordered: Admit/Condition, 02/17/17 15:19:00 [facility], Status: Out Patient with Observation Services, Telemetry, Expected LOS: 1 Midnight, Lance Jacob DO, Admit MD Review/Approve Yes, Isolation: No Isolation/Standard Precautions Admit/Condition, 02/17/17 17:27:00 [facility], Status: Out Patient with Observation Services, Telemetry, Reason: Chest Pain, Expected LOS: 1 Midnight, Lance Jacob DO, Admit MD Review/Approve Yes, Isolation: No Isolation/Standard Precautions Ambulation Continue observation 02/18/2017 [facility] Extracted from:Title: Discharge Summary * Author: Garrick [...] intervention vs conservative management FULL CODE 07/11/2015 [facility] Plan of Care Plan of Care Date Source Discharge Date 08/22/18 4:00pm Disposition HOME, SELF-CARE Condition at Discharge Stable Instructions/Education Provided Urinary Tract Infection - Women Forms Provided Work/School Excuse Prescriptions See Medication Section Referrals DU VASQUEZ MD (BUDDY) Address: [address] [place] [address] Additional Instructions/Education 1- Take medication as directed for UTI 2- Follow up with your [facility] for prolapsed uterus 3- Follow up with your PCP as needed 4- Return for any concerns 08/22/2018 [facility] Social History Social History Date Source No social history information available. 08/22/2018 [facility] Social History TypeResponse Substance Abuse Use: None. Alcohol Never Smoking Status Never smoker; Exposure to Tobacco Smoke None; Cigarette Smoking Last 365 Days No; Reg Smoking Cessation Counseling No 02/17/2017 [facility] Social History TypeResponse Substance Abuse Use: None. Alcohol Never Smoking Status Never smoker; Exposure to Tobacco Smoke None; Cigarette Smoking Last 365 Days No; Reg Smoking Cessation Counseling No 02/17/2017 [facility] Smoking Status Never Smoker 10/18/2016 [facility] Family History No Data Provided for This Section Advance Directives Order Name Results Value Date Source Advance Directives Advance Directives Directive Response Recorded Date/Time Does the patient have an advance directive? No 12/02/17 9:30am If yes, is advance directive on file with [facility]? No 06/24/18 3:22pm If not on file with [facility] will patient provide a copy? No 06/24/18 3:22pm Do you have a Directive to Physician? No 08/22/18 4:27pm Do you have a Medical Power of Car [place]? No 08/22/18 4:27pm Do you have an [...] rights and responsibilities? Yes 08/22/18 4:27pm 08/22/2018 [facility] Functional Status No Data Provided for This Section
[2018-09-24] MEDS: SODIUM CHLORIDE 0.9% 1000ML 1,000 ML IV SCH ×4 (01:30→20:47)
[2018-09-24] MEDS: METRONIDAZOLE 500MG/NS 100ML 100 ML IV SCH ×6 (01:30→23:45)
[2018-09-24] MEDS: PIPER-TAZ 3.375 GM 50 ML IV SCH ×5 (03:45→22:00)
[2018-09-24 07:39] LABS: BASOPHILS # (AUTO) 0.1 (0.0-0.1); BASOPHILS % 0.7 % (0.0-1.0); EOSINOPHILS # (AUTO) 0.1 (0.0-0.4); EOSINOPHILS % 0.8 % (0.0-6.0); HEMATOCRIT 35.9 % (34.2-44.1); LYMPHOCYTES # (AUTO) 1.5 (1.0-3.2); LYMPHOCYTES % 14.2 % (18.0-39.1); MEAN CORPUSCULAR HEMOGLOBIN 29.3 pg (28-32); MEAN CORPUSCULAR HGB CONC 33.1 g/dL (31-35); MEAN CORPUSCULAR VOLUME 88.4 fL (81-99); MONOCYTES % 9.9 % (4.4-11.3); NEUTROPHILS # (AUTO) 7.7 (2.1-6.9); NEUTROPHILS % 74.1 % (38.7-80.0); PLATELET COUNT 244 x10e3/uL (140-360); RED BLOOD COUNT 4.06 x10e6/uL (3.6-5.1); RED CELL DISTRIBUTION WIDTH 13.7 % (11.7-14.4)
[2018-09-24] MEDS ORDERED: METOPROLOL SUCC50 MG PO (07:42)
[2018-09-24 07:48] LABS: INR 0.97; PROTHROMBIN TIME 13.4 seconds (11.9-14.5)
[2018-09-24 07:49] LABS: PARTIAL THROMBOPLASTIN TIME 31.3 seconds (23.8-35.5)
[2018-09-24 07:58] LABS: ALANINE AMINOTRANSFERASE 11 IU/L (0-55); ALBUMIN 2.7 g/dL (3.5-5.0); ALBUMIN/GLOBULIN RATIO 0.7 (0.8-2.0); ALKALINE PHOSPHATASE 85 IU/L (40-150); ANION GAP 13.6 mmol/L (8-16); BLOOD UREA NITROGEN 11 mg/dL (7-26); BUN/CREATININE RATIO 13 (6-25); CALCIUM 10.4 mg/dL (8.4-10.2); CARBON DIOXIDE 27 mmol/L (22-29); CHLORIDE 100 mmol/L (98-107); CREATININE, SERUM 0.83 mg/dL (0.57-1.11); EST GLOMERULAR FILTRATION RATE > 60 ML/MIN (60-); GLUCOSE 105 mg/dL (74-118); POTASSIUM 3.6 mmol/L (3.5-5.1); SODIUM 137 mmol/L (136-145)
[2018-09-24 08:04] LABS: HEMOGLOBIN 11.9 g/dL (12.0-16.0)
--- NOTE | 2018-09-24 08:12 | NUR ---
Spoke to Dr. Keys in regards to consult.
--- NOTE | 2018-09-24 11:59 | NUR ---
Patient arrived on the floor, received from Wiliam SAHNI. Patient denies any pain or having any needs at this time.
[2018-09-24 12:01] VITALS: BP 139/62
[2018-09-24 12:10] VITALS: BP 139/62
--- NOTE | 2018-09-24 13:28 | Consultation ---
DATE OF CONSULTATION: 09/24/2018 HISTORY OF PRESENT ILLNESS: The patient is a 68-year-old female seen in my office yesterday with complaints of hernia, also with nausea and vomiting. She says she has not been able to hold anything down even water for a week, has not had a bowel movement. She has also lost about 52 pounds per the patient and her family. The patient was sent to the emergency room. Evaluation with CT of the abdomen reveals ventral hernia with bowel involvement, but no definite obstruction, also large uterine mass and findings suggestive of possible metastatic cancer. The patient says she feels better today, her pain is less and she does not have any nausea or vomiting. PAST MEDICAL HISTORY: Significant for gastritis, hypertension, arthritis. MEDICATIONS: At home were Omnicef, Dexilant, lisinopril, hydrochlorothiazide, meloxicam, metoprolol, tramadol, and Linzess. ALLERGIES: SHE HAS ALLERGY TO INTRAVENOUS CONTRAST. PAST SURGICAL HISTORY: She has had multiple previous surgeries, most recently cholecystectomy. FAMILY HISTORY: Noncontributory. SOCIAL HISTORY: The patient does not smoke cigarettes or drink alcohol. REVIEW OF SYSTEMS: As stated above. She has not had any fever. PHYSICAL EXAMINATION: GENERAL: The patient is awake and alert. VITAL SIGNS: Essentially normal. HEENT: There is no scleral icterus. NECK: No masses. LUNGS: Equal breath sounds are clear bilaterally. CARDIAC: Regular rate and rhythm with no murmur. ABDOMEN: Soft. There is a tender mass to the right and just inferior to the umbilicus, which is not reducible. There was no organomegaly. EXTREMITIES: No edema. NEUROLOGIC: Grossly intact. LAB TESTS: White blood count is 11.9, hemoglobin and hematocrit are normal. Chemistries were essentially normal. ASSESSMENT: A 68-year-old female with abdominal pain, nausea and vomiting with findings suggestive of possible metastatic cancer, also ventral hernia, which is chronically incarcerated. PLAN: Await gynecologic evaluation though she likely will need her hernia repair as this may be causing partial obstruction. At this point, since the patient is better, I think we will try her on clear liquid diet. Thank you for asking me to see Ms. Blum. MD GLORIA Mathews/DESTINY Dobson: 09/24/2018 07:36:31 /[id number]
[2018-09-24 15:41] VITALS: BP 143/72
--- NOTE | 2018-09-24 16:27 | NUR ---
CM SPOKE TO PATIENT AT BEDSIDE REGARDING DISCHARGE PLAN OF CARE. PATIENT STATES HER FIRST CHOICE WOULD BE [facility] BUT WOULD LIKE TO GO WHERE THE ACCEPTING PHYSICIAN HAS PRIVILEGES. [employer]PORATE [employer]ICENSED BROKER, KAITLYN BENNETT, INITIATING TRANSFER TO [facility] WHERE PATIENT ACCEPTING MD HAS PRIVILEGES. CHOICE LETTER SIGNED AND PLACED IN CHART. ACCEPTING MD DR. SANDRA DALEY - [phone] PENDING ACCEPTANCE AND BED FOR TRANSFER
--- NOTE | 2018-09-24 16:36 | NUR ---
Transfer initiated to [facility] per Dr. Wolfe. Spoke with Cyndee at transfer center. Will inform of any bed that becomes available. Informed transfer center of Dr. Fitzgerald willing to accept the patient
[2018-09-24 20:00] VITALS: BP 157/67
[2018-09-24 20:49] VITALS: BP 157/67
[2018-09-25 00:37] VITALS: BP 162/67
[2018-09-25 05:16] VITALS: BP 166/71
[2018-09-25] MEDS: PIPER-TAZ 3.375 GM 50 ML IV SCH ×2 (05:40→13:41)
[2018-09-25] MEDS: SODIUM CHLORIDE 0.9% 1000ML 1,000 ML IV SCH ×2 (06:27→13:40)
[2018-09-25] MEDS: METRONIDAZOLE 500MG/NS 100ML 100 ML IV SCH (06:27)
--- NOTE | 2018-09-25 07:00 | NUR ---
BEDSIDE REPORT FROM NIGHT RN. PT DENIES NEEDS AT THIS TIME.
[2018-09-25 08:12] VITALS: BP 144/58
[2018-09-25 09:00] VITALS: BP 144/58
[2018-09-25 11:28] LABS: BASOPHILS # (AUTO) 0.1 (0.0-0.1); BASOPHILS % 0.7 % (0.0-1.0); EOSINOPHILS # (AUTO) 0.1 (0.0-0.4); EOSINOPHILS % 0.8 % (0.0-6.0); HEMATOCRIT 38.7 % (34.2-44.1); HEMOGLOBIN 12.4 g/dL (12.0-16.0); LYMPHOCYTES # (AUTO) 1.1 (1.0-3.2); LYMPHOCYTES % 10.4 % (18.0-39.1); MEAN CORPUSCULAR HEMOGLOBIN 28.8 pg (28-32); MEAN CORPUSCULAR VOLUME 89.8 fL (81-99); NEUTROPHILS # (AUTO) 8.4 (2.1-6.9); NEUTROPHILS % 78.7 % (38.7-80.0); PLATELET COUNT 244 x10e3/uL (140-360); RED BLOOD COUNT 4.31 x10e6/uL (3.6-5.1); RED CELL DISTRIBUTION WIDTH 13.8 % (11.7-14.4)
[2018-09-25] MEDS: ONDANSETRON HCL INJ 2MG/ML 2ML 2 MG/ML VIAL IV PRN ×2 (11:39→16:01)
[2018-09-25 11:40] LABS: ANION GAP 11.5 mmol/L (8-16); BLOOD UREA NITROGEN 10 mg/dL (7-26); BUN/CREATININE RATIO 11 (6-25); CALCIUM 10.3 mg/dL (8.4-10.2); CARBON DIOXIDE 25 mmol/L (22-29); CHLORIDE 103 mmol/L (98-107); CREATININE, SERUM 0.89 mg/dL (0.57-1.11); EST GLOMERULAR FILTRATION RATE > 60 ML/MIN (60-); GLUCOSE 120 mg/dL (74-118); POTASSIUM 3.5 mmol/L (3.5-5.1); SODIUM 136 mmol/L (136-145)
[2018-09-25] MEDS ORDERED: PANTOPRAZOLE 40 MG 10ML VIAL IV SCH (11:45)
[2018-09-25] MEDS ORDERED: METOPROLOL SUCCINATE 50 MG TAB XL PO SCH (11:45)
[2018-09-25 13:23] VITALS: BP 140/87
--- NOTE | 2018-09-25 15:51 | NUR ---
Spoke with Cyndee Paul RN at [facility]. Patient has been approved at the hospital. Patient will be going to Room 331 surgical bed. Accepting MD was Dawn Fitzgerald. Accepted at [id number].
--- NOTE | 2018-09-25 16:07 | NUR ---
PT NAUSEATED. ZOFRAN GIVEN. PT FEELING BETTER. DENIES FURTHER NEEDS.
[2018-09-25 16:43] VITALS: BP 138/58
--- NOTE | 2018-09-25 16:50 | NUR ---
REPORT GIVEN TO MICHAEL MENDEZ RN AT [facility]. CALLED CONSULTING SERVICES PROJECT MANAGER TO CALL AMBULANCE FOR TRANSFER.
--- NOTE | 2018-09-25 17:20 | NUR ---
PT TRANSFER BY AMBULANCE AT THIS TIME.
== END 2018-09-25 17:15 | disposition short-term general hospital (02) | DRG 394 ==
LOC: ER 17:27 → ERHOLD 23:33 → MED/SURG2 09-24 11:55
PROVIDERS: ADMIT Internal Medicine; ATTEND Internal Medicine
DX: K43.9 Ventral hernia without obstruction or gangrene (principal); Z68.42 Body mass index [BMI] 45.0-49.9, adult; R19.00 Intra-abdominal and pelvic swelling, mass and lump, unspecified site; R10.9 Unspecified abdominal pain; I10 Essential (primary) hypertension; N85.2 Hypertrophy of uterus; E66.01 Morbid (severe) obesity due to excess calories
CPT/HCPCS: 36415; 74176; 80048; 80053; 81001; 82150; 82948; 83690; 83735; 85025; 85610; 85730; 93005; 99284; J2270; J2405; J2543; J7030